=== PATIENT | male | born 1950 | race Caucasian/White ===

== ENCOUNTER 2017-11-07 06:25 | Inpatient (IN) | payer OTHER, MEDICARE ==
[2017-11-04 09:07] VITALS: BMI 35.7
[2017-11-10 06:46] VITALS: PULSE 70; TEMP 99.5
[2017-11-10 11:28] VITALS: BP 113/57
== END 2017-11-10 14:11 | DRG 460 ==
LOC: JSAMEDAYSX 06:25 → EDSTATUS 08:00 → J8W 16:55
PROVIDERS: ADMIT Hospitalist; ATTEND Nurse Practitioner Acute Care
PROC: 0SG10AJ Fusion of 2 or more Lumbar Vertebral Joints with Interbody Fusion Device, Posterior Approach, Anterior Column, Open Approach (ICD-10-PCS; principal; 2017-11-07)
PROC: 0QB00ZZ Excision of Lumbar Vertebra, Open Approach (ICD-10-PCS; 2017-11-07)
PROC: 0QP004Z Removal of Internal Fixation Device from Lumbar Vertebra, Open Approach (ICD-10-PCS; 2017-11-07)
PROC: 0JX70ZZ Transfer Back Subcutaneous Tissue and Fascia, Open Approach (ICD-10-PCS; 2017-11-07)
DX: M48.061 Spinal stenosis, lumbar region without neurogenic claudication (principal); T84.226A Displacement of internal fixation device of vertebrae, initial encounter; M54.16 Radiculopathy, lumbar region; I10 Essential (primary) hypertension; E78.5 Hyperlipidemia, unspecified; N40.0 Benign prostatic hyperplasia without lower urinary tract symptoms; Y83.8 Other surgical procedures as the cause of abnormal reaction of the patient, or of later complication, without mention of misadventure at the time of the procedure
CPT/HCPCS: 36415; 72131-TC; 76000-TC-FY; 80048; 80076; 83735; 84100; 85025; 85027; 86850; 86900; 86901; 94010; 94760; 97116-GP; 97161-GP; J1644

== ENCOUNTER 2018-12-13 09:11 | Day surgery (SDC) | payer OTHER, BC, MEDICARE | END 2018-12-13 12:19 | disposition home or self-care (01) | LOC: JASU-ENDO 09:11 ==

== ENCOUNTER 2019-05-25 11:43 | Inpatient (IN) | payer OTHER, BC ==
[2019-05-25] MEDS ORDERED: VANCOMYCIN 1 GM in D5W (PRE-DOCKED) 1,000 MG/250 ML IVPB ONE (12:48)
[2019-05-25] MEDS ORDERED: CLINDAMYCIN 600MG PREMIX IVPB 600 MG/50 ML BAG IVPB ONE ×2 (12:48→13:17)
[2019-05-25 13:01] LABS: EOS % 2.7 % (0-4.5); HEMATOCRIT 41.8 % (35.4-49); HEMOGLOBIN 14.3 GM/dL (11.7-16.9); LYMPH % 14.9 % (8-40); MCH 32.7 pg (25.7-33.7); MCHC 34.2 g/dl (32.0-35.9); MEAN CELL VOLUME 95.6 fl (80-96); MEAN PLT VOLUME 8.3 fl (7.5-11.1); MONO % 6.5 % (3.8-10.2); NEUT % 74.9 % (42.8-82.8); PLATELET COUNT 195 K/MM3 (134-434); RBC 4.38 M/mm3 (4.00-5.60); WHITE BLOOD COUNT 6.9 K/mm3 (4.0-10.0)
[2019-05-25] MEDS ORDERED: VANCOMYCIN 1 GRAM (PRE-DOCKED) 1,000 MG/250 ML BAG IVPB ONE (13:17)
--- NOTE | 2019-05-25 13:17 | PDOC ---
History of Present Illness - General Chief Complaint: Wound Stated Complaint: SENT BY PCP/LF FOOT TOE INJURY Time Seen by Provider: 05/25/19 12:18 History Source: Patient - History of Present Illness Initial Comments: 05/25/19 12:56 68 yo M PMH of HTN, HLD, BPH, lumbar stenosis presents to ED with L hallux wound. Pt states symptoms began 4 days ago and have progressively worsened. Pt states the toe is swollen, hot, and painful. Since this am, wound has opened and has clear discharge. pt states he is on his 4th day of augmentin and symptoms have not improved. nothing has helped or worsened his pain. pt denies fevers, chills, nausea, vomiting. Past History - Past Medical History Allergies/Adverse Reactions: Allergies Allergy/AdvReac Type Severity Reaction Status Date / Time No Known Allergies Allergy Verified 05/25/19 11:52 Home Medications: Ambulatory Orders Alprazolam 1 mg PO PRN PRN 07/12/16 Amlodipine Besylate 5 mg PO DAILY 07/12/16 Simvastatin 20 mg PO HS 07/12/16 Tamsulosin HCl [Flomax] 0.8 mg PO HS 07/12/16 Losartan/Hydrochlorothiazide [Losartan-Hctz 100-25 mg Tab] 1 each PO DAILY 11/04 Duloxetine HCl [Cymbalta] 30 mg PO DAILY 12/12/18 Metoprolol Succinate 25 mg PO DAILY 12/12/18 Anemia: No Asthma: No Cancer: No Cardiac Disorders: Yes (MURMUR LONG TIME AGO) CVA: No COPD: No CHF: No Dementia: No Diabetes: No GI Disorders: No Disorders: No HTN: Yes Hypercholesterolemia: Yes Liver Disease: No Seizures: No Thyroid Disease: No - Surgical History Abdominal Surgery: No Appendectomy: No Cardiac Surgery: No Cholecystectomy: No Lung Surgery: No Neurologic Surgery: No Orthopedic Surgery: No - Psycho Social/Smoking Cessation Hx Smoking Status: No Smoking History: Unknown if ever smoked Number of Cigarettes Smoked Daily: 0 Hx Alcohol Use: Yes (3X/W) Drug/Substance Use Hx: No Substance Use Type: None Hx Substance Use Treatment: No Review of Systems - Review of Systems Constitutional: No: Chills, Fever Respiratory: No: Shortness of Breath Cardiac (ROS): No: Chest Pain, Lightheadedness, Palpitations ABD/GI: No: Constipated, Diarrhea, Nausea, Vomiting, Abdominal cramping Neurological: No: Headache, Dizziness *Physical Exam - Vital Signs Last Vital Signs Temp Pulse Resp BP Pulse Ox 98.5 F 88 20 202/86 H 98 05/25/19 11:58 05/25/19 11:58 05/25/19 11:58 05/25/19 11:58 05/25/19 11:58 - Physical Exam General Appearance: Yes: Nourished, Appropriately Dressed HEENT: positive: EOMI Respiratory/Chest: positive: Lungs Clear, Normal Breath Sounds. negative: Accessory Muscle Use, Crackles, Wheezing Cardiovascular: positive: Regular Rhythm, Regular Rate, S1, S2. negative: Murmur Gastrointestinal/Abdominal: positive: Normal Bowel Sounds, Soft Extremity: positive: Swelling, Erythema, Inflammation (L hallux ) ED Treatment Course - LABORATORY CBC & Chemistry Diagram: 05/25/19 12:48 05/25/19 12:48 - RADIOLOGY Radiology Studies Ordered: Category Date Time Status FOOT-LEFT [RAD] Stat Radiology 05/25/19 12:22 Ordered Medical Decision Making - Medical Decision Making 05/25/19 13:22 68 yo M w/ L halux wound cellulitis r/o osteo -cbc, cmp -wound culture , blood culture -foot XR 05/25/19 13:23 -cbc reviewed, no leukocytosis . pt afebrile -communicated w/ PMD Dr. Gaxiola. pt failed outpt regimen. pt may benefit from IV abx. 05/25/19 15:22 -CMP reviewed. XR--> no Osteo -Admit to med surg for IV Abx Discharge - Discharge Information Problems reviewed: Yes Clinical Impression/Diagnosis: Cellulitis - Admission Yes - Follow up/Referral Referrals: Uri Gaxiola MD [Primary Care Provider] - - Patient Discharge Instructions - Post Discharge Activity
[2019-05-25 13:30] LABS: ALBUMIN 3.9 g/dl (3.4-5.0); BILIRUBIN,TOTAL 0.7 mg/dL (0.2-1); BLOOD UREA NITROGEN 9.4 mg/dL (7-18); CALCIUM 9.4 mg/dL (8.5-10.1); CREATININE 0.8 mg/dL (0.55-1.3); POTASSIUM 3.4 mmol/L (3.5-5.1); TOT PROT 7.6 g/dl (6.4-8.2)
--- NOTE | 2019-05-25 13:45 | PDOC ---
Attending Attestation - Resident Resident Name: Nathan Quach - ED Attending Attestation I have performed the following: I have examined & evaluated the patient, The case was reviewed & discussed with the resident, I agree w/resident's findings & plan - HPI HPI: 05/25/19 13:44 68 yo M PMH of HTN, HLD, BPH, lumbar stenosis presents to ED with L hallux dorsal wound x 4 days, now progressively worsening, a/w neuropathy/numbness. Pt states the toe is swollen, hot, and painful. pt states he is on his 4th day of augmentin and symptoms have not improved. s/p augmentin per primary doctor since this morning - wound worsening despite abx, with purulent yellow discharge and erythema. nothing has helped or worsened his pain. pt denies fevers, chills, nausea, vomiting. PMD Dr Mallory 05/25/19 14:16 - Physicial Exam PE: 05/25/19 13:44 Agree with the resident's HPI and PE as documented in the electronic medical record. NAD, well appearing, EOMI, PERRL, nl conjunctiva, anicteric; neck supple. lungs clear, RRR, abdomen soft nontender. no rebound, guarding. Back nontender. MCKEON x4, no focal neuro deficits. No peripheral edema. normal color for ethnicity , WWP. - Medical Decision Making 05/25/19 14:18 Vital Signs Temp Pulse Resp BP Pulse Ox 98.5 F 88 20 202/86 H 98 05/25/19 11:58 05/25/19 11:58 05/25/19 11:58 05/25/19 11:58 05/25/19 11:58 Differential diagnosis includes osteomyelitis, cellulitis, abscess, nec fasciitis. VS reviewed, afebrile, +hypertensive. does have h/o HTN, takes home meds. failed outpatient abx warrants more broad coverage. labs and lytes normal. reassuring. no leukocytosis xray no gas or bony abnormalities /fx, more definitive imaging MRI IV abx recommended. ordered for vancomycin to cover MRSA. clindamycin. admit for left toe infection, failed outpatient abx. cultures from blood and wound pending to tailor abx coverage. 05/25/19 14:41 05/25/19 14:42 05/25/19 14:43 05/25/19 15:09
--- NOTE | 2019-05-25 16:18 | PN ---
Teaching Attending Note Name of Resident: Darcy Ko ATTENDING PHYSICIAN STATEMENT I saw and evaluated the patient. I reviewed the resident's note and discussed the case with the resident. I agree with the resident's findings and plan as documented. SUBJECTIVE: Complains of some pain, swelling, erythema, tenderness left great toe. No fever/chills. OBJECTIVE: Afebrile, Hemodynamically Stable. Last Vital Signs Temp Pulse Resp BP Pulse Ox 97.6 F 87 17 167/79 100 05/25/19 15:39 05/25/19 15:39 05/25/19 15:39 05/25/19 15:39 05/25/19 15:39 HEENT - Atraumatic, Normocephalic. Heart - S1, S2, RRR Lungs -Clear to auscultation Abdomen - Soft, non-tender. Bowel Sounds normal. Extremities - Mild edema, no calf tenderness, ulceration of L great toe lateral aspect with pustular discharge. Neuro - AAO x 3. Tone/Power normal all 4 extremities. Laboratory Results - last 24 hr 05/25/19 05/25/19 12:48 12:48 WBC 6.9 RBC 4.38 Hgb 14.3 Hct 41.8 D MCV 95.6 MCH 32.7 MCHC 34.2 RDW 13.0 Plt Count 195 D MPV 8.3 Absolute Neuts (auto) 5.2 Neutrophils % 74.9 Lymphocytes % 14.9 D Monocytes % 6.5 Eosinophils % 2.7 D Basophils % 1.0 Nucleated RBC % 0 Sodium 138 Potassium 3.4 L Chloride 97 L Carbon Dioxide 33 H Anion Gap 8 BUN 9.4 Creatinine 0.8 Est GFR (CKD-EPI)AfAm 107.13 Est GFR (CKD-EPI)NonAf 92.44 Random Glucose 136 H Calcium 9.4 Total Bilirubin 0.7 AST 26 ALT 37 Alkaline Phosphatase 56 Total Protein 7.6 Albumin 3.9 Home Medications Medication Instructions Recorded Alprazolam 1 mg PO PRN PRN 07/12/16 Amlodipine Besylate 5 mg PO DAILY 07/12/16 Simvastatin 20 mg PO HS 07/12/16 Tamsulosin HCl [Flomax] 0.8 mg PO HS 07/12/16 Losartan/Hydrochlorothiazide 1 each PO DAILY 11/04/17 [Losartan-Hctz 100-25 mg Tab] Duloxetine HCl [Cymbalta] 30 mg PO DAILY 12/12/18 Metoprolol Succinate 25 mg PO DAILY 12/12/18 ASSESSMENT AND PLAN: 87 year old male with HTN, HLD, BPH, presents with 5 day history of worsening L great toe ulcer with pain/swelling/erythema, without fever or chills. 1. Infected L great toe ulcer with Cellulitis Failed out-patient Abx therapy MRI foot to exclude osteomyelitis. Afebrile, Hemodynamicaly Stable. No leukocytosis. Given Clinda/Vanco in ED - Will continue Ceftriaxone/Vanco pending Wound Cx result. ID following. 2. HTN - Continue Norvasc, Losartan, Metoprolol. Hold HCTZ. 3. HLD - Continue Simvastatin 4. Anxiety/Depression - Continue Alprazolam, Duloxetine. 5. BPH - continue Flomax. DVT Px - Heparin SQ
--- NOTE | 2019-05-25 16:19 | HP ---
CHIEF COMPLAINT:left big toe ulcer PCP:Dr Gaxiola HISTORY OF PRESENT ILLNESS: Patient is a 68 year old male with past medical history of HTN, HLD, BPH, and lumbar stenosis, presented to the ED due to worsening left big toe ulcer that started 5 days ago. Patient reported he noted left great toe redness and pain 5 days ago. He denies any trauma to the area, denies fevers or chills. The next day, patient noted a 1x1cm blister on the lateral left great toe. He pricked the blister, and noted clear discharge, denies any purulence. Patient consulted with PCP and was prescribed Augmentin BID for which he took the next 4 days. Today, patient noted worsening of the left great toe ulcer, with surrounding redness, swelling and pain. Patient denies any fevers, chills, headache, dizziness, chest pain, SOB, abdominal pain, diarrhea, and urinary symptoms. ER course was notable for: (1)Left foot xray - left foot reveal arthritic changes in the toes, cranial spurring, vascular calcifications and no sign of fracture or subluxation. Blastic or lytic changes (2)Iv Clindamycin and Vancomycin x1 (3) Recent Travel:denies PAST MEDICAL HISTORY: HTN HLD BPH lumbar stenosis PAST SURGICAL HISTORY: Right knee replacement Spinal surgery Social History: Smoking:denies Alcohol:occasional EtOH use Drugs: denies Allergies No Known Allergies Allergy (Verified 05/25/19 11:52) HOME MEDICATIONS: Home Medications Medication Instructions Recorded Alprazolam 1 mg PO PRN PRN 07/12/16 Amlodipine Besylate 5 mg PO DAILY 07/12/16 Simvastatin 20 mg PO HS 07/12/16 Tamsulosin HCl [Flomax] 0.8 mg PO HS 07/12/16 Losartan/Hydrochlorothiazide 1 each PO DAILY 11/04/17 [Losartan-Hctz 100-25 mg Tab] Duloxetine HCl [Cymbalta] 30 mg PO DAILY 12/12/18 Metoprolol Succinate 25 mg PO DAILY 12/12/18 REVIEW OF SYSTEMS CONSTITUTIONAL: Absent: fever, chills, diaphoresis, generalized weakness, malaise, loss of appetite, weight change HEENT: Absent: rhinorrhea, nasal congestion, throat pain, throat swelling, difficulty swallowing, mouth swelling, ear pain, eye pain, visual changes CARDIOVASCULAR: Absent: chest pain, syncope, palpitations, irregular heart rate, lightheadedness , peripheral edema RESPIRATORY: Absent: cough, shortness of breath, dyspnea with exertion, orthopnea, wheezing, stridor, hemoptysis GASTROINTESTINAL: Absent: abdominal pain, abdominal distension, nausea, vomiting, diarrhea, constipation, melena, hematochezia GENITOURINARY: Absent: dysuria, frequency, urgency, hesitancy, hematuria, flank pain, genital pain MUSCULOSKELETAL: Absent: myalgia, arthralgia, joint swelling, back pain, neck pain SKIN: Absent: rash, itching, pallor HEMATOLOGIC/IMMUNOLOGIC: Absent: easy bleeding, easy bruising, lymphadenopathy, frequent infections ENDOCRINE: Absent: unexplained weight gain, unexplained weight loss, heat intolerance, cold intolerance NEUROLOGIC: Absent: headache, focal weakness or paresthesias, dizziness, unsteady gait, seizure, mental status changes, bladder or bowel incontinence PSYCHIATRIC: Absent: anxiety, depression, suicidal or homicidal ideation, hallucinations. PHYSICAL EXAMINATION Vital Signs - 24 hr 05/25/19 05/25/19 11:58 15:39 Temperature 98.5 F 97.6 F Pulse Rate 88 Pulse Rate [ 87 Left Brachial] Respiratory 20 17 Rate Blood Pressure 202/86 H Blood Pressure 167/79 [Left Arm] O2 Sat by Pulse 98 100 Oximetry (%) GENERAL: Awake, alert, and fully oriented, in no acute distress. HEAD: Normal with no signs of trauma. EYES: PERRLA, EOMI, sclera anicteric, conjunctiva clear. EARS, NOSE, THROAT: Moist mucous membranes. NECK: Normal range of motion, supple. LUNGS: Breath sounds equal, clear to auscultation bilaterally. HEART: Regular rate and rhythm, normal S1 and S2 without murmur, rub or gallop. ABDOMEN: Soft, nontender, not distended, normoactive bowel sounds. MUSCULOSKELETAL: Normal range of motion at all joints. UPPER EXTREMITIES: 2+ pulses, warm, well-perfused. LOWER EXTREMITIES: 2+ pulses, warm, well-perfused. LLE: +erythema, tenderness, 1x1cm ulcer with erythema of the left great toe NEUROLOGICAL: Cranial nerves II-XII intact. Normal speech. Gait not observed PSYCHIATRIC: Cooperative. Good eye contact. Appropriate mood and affect. SKIN: Warm, dry, normal turgor. Laboratory Results - last 24 hr 05/25/19 05/25/19 12:48 12:48 WBC 6.9 RBC 4.38 Hgb 14.3 Hct 41.8 D MCV 95.6 MCH 32.7 MCHC 34.2 RDW 13.0 Plt Count 195 D MPV 8.3 Absolute Neuts (auto) 5.2 Neutrophils % 74.9 Lymphocytes % 14.9 D Monocytes % 6.5 Eosinophils % 2.7 D Basophils % 1.0 Nucleated RBC % 0 Sodium 138 Potassium 3.4 L Chloride 97 L Carbon Dioxide 33 H Anion Gap 8 BUN 9.4 Creatinine 0.8 Est GFR (CKD-EPI)AfAm 107.13 Est GFR (CKD-EPI)NonAf 92.44 Random Glucose 136 H Calcium 9.4 Total Bilirubin 0.7 AST 26 ALT 37 Alkaline Phosphatase 56 Total Protein 7.6 Albumin 3.9 ASSESSMENT/PLAN: Patient is a 68 year old male with past medical history of HTN, HLD, BPH, and lumbar stenosis, presented to the ED due to worsening left big toe ulcer that started 5 days ago. #Left great toe ulcer with cellulitis -Left foot xray - left foot reveal arthritic changes in the toes, cranial spurring, vascular calcifications and no sign of fracture or subluxation. Blastic or lytic changes -Will order MRI to rule out osteomyelitis -IV VAnc and clindamycin given at the ED -will continue IV Vancomycin 1g daily and Unasyn 3g q6h -Blood cultures and wound cultures pending -ID (Dr. Carbajal) consulted. #Hypertension -Continue home Amlodipine 5mg daily, Losartan 100mg daily, Toprol Xl 25mg daily -will hold home HCTZ for now #HLD -Continue home Simvastatin 20mg daily #BPH -Continue home Tamsulosin 0.4 mg daily #Hypokalemia -K-dur 40meq x2 doses #FEN -Not on any standing fluids -HypoK, repleted, routine bmp monitoring -Sodium restricted diet #Prophylaxis -Lovenox 40mg sq daily #Disposition -full code -admit to med surg Visit type - Emergency Visit Emergency Visit: Yes ED Registration Date: 05/25/19 Care time: The patient presented to the Emergency Department on the above date and was hospitalized for further evaluation of their emergent condition. - New Patient This patient is new to me today: Yes Date on this admission: 05/25/19 - Critical Care Critical Care patient: No ATTENDING PHYSICIAN STATEMENT I saw and evaluated the patient. I reviewed the resident's note and discussed the case with the resident. I agree with the resident's findings and plan as documented. SUBJECTIVE: OBJECTIVE: ASSESSMENT AND PLAN:
--- NOTE | 2019-05-25 17:42 | PN ---
Progress Note (short form) - Note Progress Note: ID CONSULT DICTATED CELLULITIS L GREAT TOE FAILED OUTPATIENT ANTIBIOTIC TX (AUGMENTIN) AWAIT C/S EMPIRIC VANCOMYCIN/ CEFTRIAXONE
[2019-05-25] MEDS: POTASSIUM CHLORIDE TABS 20 MEQ TABLET.ER (FP) PO SCH ×2 (17:48→23:06)
[2019-05-25 18:20] VITALS: BMI 35.2
[2019-05-25] MEDS ORDERED: DEXTROSE 5%-WATER 100 ML IVPB ONE (18:25)
[2019-05-25] MEDS: CEFTRIAXONE 2 GM in DEXTROSE 5%-WATER 100 ML IVPB SCH (18:47)
[2019-05-25] MEDS ORDERED: AMPICILLIN NA/SULBACTAM NA 3 GM in SODIUM CHLORIDE 100 ML IVPB SCH (21:00)
[2019-05-25] MEDS: TAMSULOSIN HCL 0.4 MG CAP PO SCH (23:03)
[2019-05-25] MEDS: ATORVASTATIN CA 10 MG TABLET (FP) PO SCH (23:04)
[2019-05-25] MEDS: metoPROLOL SUCCINATE 25 MG TAB.SR.24H (FP) PO SCH (23:58)
[2019-05-26] MEDS: ALPRAZolam 1 MG TABLET PO PRN (01:23)
[2019-05-26] MEDS: VANCOMYCIN HCL 1,250 MG in DEXTROSE 5%-WATER - 250 ML IVPB SCH ×2 (01:24→15:06)
[2019-05-26 09:32] LABS: BASO % 1.2 % (0-2.0); EOS % 3.5 % (0-4.5); HEMATOCRIT 38.3 % (35.4-49); LYMPH % 18.6 % (8-40); MCH 32.7 pg (25.7-33.7); MCHC 33.9 g/dl (32.0-35.9); MEAN CELL VOLUME 96.4 fl (80-96); MEAN PLT VOLUME 8.3 fl (7.5-11.1); MONO % 9.7 % (3.8-10.2); PLATELET COUNT 179 K/MM3 (134-434); RBC 3.97 M/mm3 (4.00-5.60); RDW 13.2 % (11.9-15.9); WHITE BLOOD COUNT 6.2 K/mm3 (4.0-10.0)
[2019-05-26 10:00] LABS: BLOOD UREA NITROGEN 8.6 mg/dL (7-18); CALCIUM 8.7 mg/dL (8.5-10.1); CREATININE 0.7 mg/dL (0.55-1.3); MAGNESIUM 1.9 mg/dL (1.8-2.4); PHOSPHOROUS 3.3 mg/dL (2.5-4.9); POTASSIUM 4.2 mmol/L (3.5-5.1)
[2019-05-26] MEDS ORDERED: metoPROLOL SUCCINATE 25 MG TAB.SR.24H (FP) PO SCH (10:00)
[2019-05-26] MEDS ORDERED: VANCOMYCIN 1 GM in D5W (PRE-DOCKED) 1,000 MG/250 ML IVPB SCH (10:00)
[2019-05-26] MEDS ORDERED: DEXTROSE 5%-WATER 100 ML IVPB ONE (10:39)
[2019-05-26] MEDS: CEFTRIAXONE 2 GM in DEXTROSE 5%-WATER 100 ML IVPB SCH (10:44)
[2019-05-26] MEDS: LOSARTAN POTASSIUM 50 MG TABLET (FP) PO SCH (10:44)
[2019-05-26] MEDS: amLODIPine BESYLATE 5 MG TABLET (FP) PO SCH (10:44)
[2019-05-26] MEDS: ENOXAPARIN NA (PORCINE) 40 MG/0.4 ML DISP.SYRIN SQ SCH (10:44)
[2019-05-26] MEDS: DULoxetine HCL 30 MG CAPSULE.DR PO SCH (10:46)
[2019-05-26] MEDS ORDERED: PT OWN MED DRAWER 7, Y5N ONE (10:46)
[2019-05-26] MEDS ORDERED: ALPRAZolam 1 MG TABLET PO ONE (11:52)
[2019-05-26] MEDS ORDERED: DOCUSATE SODIUM 100 MG CAPSULE (FP) PO PRN (11:53)
[2019-05-26] MEDS ORDERED: POLYETHYLENE GLYCOL 3350 119 GM BTL PO ONE (11:53)
--- NOTE | 2019-05-26 12:00 | PN ---
Progress Note (short form) - Note Progress Note: SUBJECTIVE: Complains of some ongoing pain, swelling, erythema, tenderness left great toe. No fever/chills. Complains of insomnia, asks for trazodone, oxycodone , Xanax. OBJECTIVE: Afebrile, Hemodynamically Stable. Appears mildly anxious. Last Vital Signs Temp Pulse Resp BP Pulse Ox 98.5 F 77 18 149/80 98 05/26/19 06:00 05/26/19 06:00 05/26/19 06:00 05/26/19 06:00 05/25/19 21:00 Heart - S1, S2, RRR Lungs - Clear to auscultation Abdomen - Soft, non-tender. Bowel Sounds normal. Extremities - Mild edema, no calf tenderness, ulceration of L great toe lateral aspect with pustular discharge. Neuro - AAO x 3. Tone/Power normal all 4 extremities. Laboratory Results - last 24 hr 05/25/19 05/25/19 05/26/19 12:48 12:48 07:55 WBC 6.9 6.2 RBC 4.38 3.97 L Hgb 14.3 13.0 Hct 41.8 D 38.3 MCV 95.6 96.4 H MCH 32.7 32.7 MCHC 34.2 33.9 RDW 13.0 13.2 Plt Count 195 D 179 MPV 8.3 8.3 Absolute Neuts (auto) 5.2 4.1 Neutrophils % 74.9 67.0 Lymphocytes % 14.9 D 18.6 D Monocytes % 6.5 9.7 Eosinophils % 2.7 D 3.5 Basophils % 1.0 1.2 Nucleated RBC % 0 0 Sodium 138 Potassium 3.4 L Chloride 97 L Carbon Dioxide 33 H Anion Gap 8 BUN 9.4 Creatinine 0.8 Est GFR (CKD-EPI)AfAm 107.13 Est GFR (CKD-EPI)NonAf 92.44 Random Glucose 136 H Calcium 9.4 Phosphorus Magnesium Total Bilirubin 0.7 AST 26 ALT 37 Alkaline Phosphatase 56 Total Protein 7.6 Albumin 3.9 05/26/19 07:55 WBC RBC Hgb Hct MCV MCH MCHC RDW Plt Count MPV Absolute Neuts (auto) Neutrophils % Lymphocytes % Monocytes % Eosinophils % Basophils % Nucleated RBC % Sodium 139 Potassium 4.2 Chloride 100 Carbon Dioxide 34 H Anion Gap 5 L BUN 8.6 Creatinine 0.7 Est GFR (CKD-EPI)AfAm 113.18 Est GFR (CKD-EPI)NonAf 97.65 Random Glucose 120 H Calcium 8.7 Phosphorus 3.3 Magnesium 1.9 Total Bilirubin AST ALT Alkaline Phosphatase Total Protein Albumin Current Medications Generic Name Dose Route Start Last Admin Trade Name Freq PRN Reason Stop Dose Admin Alprazolam 1 mg 05/25/19 16:20 05/26/19 01:23 Xanax PO 1 mg Q24H PRN Administration ANXIETY Alprazolam 1 mg 05/26/19 11:52 Xanax PO 05/27/19 11:51 ONCE PRN ANXIETY Amlodipine Besylate 5 mg 05/26/19 10:00 05/26/19 10:44 Norvasc - PO 5 mg DAILY JOSELINE Administration Atorvastatin Calcium 10 mg 05/25/19 22:00 05/25/19 23:04 Lipitor - PO 10 mg HS JOSELINE Administration Docusate Sodium 100 mg 05/26/19 11:53 Colace - PO BID PRN CONSTIPATION Duloxetine HCl 30 mg 05/26/19 10:00 05/26/19 10:46 Cymbalta - PO 30 mg DAILY JOSELINE Administration Enoxaparin Sodium 40 mg 05/26/19 10:00 05/26/19 10:44 Lovenox - SQ 40 mg DAILY JOSELINE Administration Vancomycin HCl 1,250 mg/ 250 mls @ 166.667 mls/hr 05/26/19 01:00 05/26/19 01: 24 Dextrose IVPB 166.667 mls/hr Q12H JOSELINE Administration Protocol Ceftriaxone Sodium 2 gm/ 100 mls @ 200 mls/hr 05/25/19 17:45 05/26/19 10:44 Dextrose IVPB 200 mls/hr DAILY JOSELINE Administration Protocol Losartan Potassium 100 mg 05/26/19 10:00 05/26/19 10:44 Cozaar - PO 100 mg DAILY JOSELINE Administration Metoprolol Succinate 25 mg 05/25/19 23:45 05/25/19 23:58 Toprol Xl - PO 25 mg HS JOSELINE Administration Oxycodone HCl 5 mg 05/26/19 11:55 Roxicodone - PO Q8H PRN PAIN LEVEL 6-10 Polyethylene Glycol 17 gm 05/26/19 11:53 Miralax (For Daily Use) - PO 05/26/19 11:54 ONCE ONE Senna 2 tab 05/26/19 22:00 Senna - PO HS JOSELINE Tamsulosin HCl 0.8 mg 05/25/19 22:00 05/25/19 23:03 Flomax - PO 0.8 mg HS JOSELINE Administration Trazodone HCl 100 mg 05/26/19 22:00 Desyrel - PO HS JOSELINE Home Medications Medication Instructions Recorded Alprazolam 1 mg PO PRN PRN 07/12/16 Amlodipine Besylate 5 mg PO DAILY 07/12/16 Simvastatin 20 mg PO HS 07/12/16 Tamsulosin HCl [Flomax] 0.8 mg PO HS 07/12/16 Losartan/Hydrochlorothiazide 1 each PO DAILY 11/04/17 [Losartan-Hctz 100-25 mg Tab] Duloxetine HCl [Cymbalta] 30 mg PO DAILY 12/12/18 Metoprolol Succinate 25 mg PO DAILY 12/12/18 Gabapentin OXYCODONE TRAZODONE 300 mg PO BID 05/26/19 ASSESSMENT AND PLAN: 87 year old male with HTN, HLD, BPH, presents with 5 day history of worsening L great toe ulcer with pain/swelling/erythema, without fever or chills. 1. Infected L great toe ulcer with Cellulitis Failed out-patient Abx therapy Wound Cx - presumptive MRSA MRI foot to exclude osteomyelitis. Afebrile, Hemodynamicaly Stable. No leukocytosis. Given Clinda/Vanco in ED - continued on Ceftriaxone/Vanco pending final Wound Cx result - for further re-eval today by ID. 2. HTN - Continue Norvasc, Losartan, Metoprolol. HCTZ held. 3. HLD - Continue Simvastatin 4. Anxiety/Depression - Continue Alprazolam, Duloxetine. Also takes Trazodone at bedtime. 5. BPH - continue Flomax. DVT Px - Heparin SQ Visit type - Emergency Visit Emergency Visit: Yes ED Registration Date: 05/25/19 Care time: The patient presented to the Emergency Department on the above date and was hospitalized for further evaluation of their emergent condition. - New Patient This patient is new to me today: No - Critical Care Critical Care patient: No - Discharge Referral Referred to [facility] No
--- NOTE | 2019-05-26 14:42 | PN ---
Progress Note (short form) - Note Progress Note: toe is improved per patient and friend no fevers or chills Vital Signs Period Temp Pulse Resp BP Sys/Brito Pulse Ox Last 24 Hr 97.6 F-98.7 F 77-92 17-18 145-167/76-83 98-100 cor-rrr lungs clear abd soft,nt ext erythema of the big toe, no fluctuance, open ulcer +DP CBC, BMP 05/26/19 07:55 05/26/19 07:55 Microbiology 05/25/19 12:48 Blood - Peripheral Venous Blood Culture - Preliminary NO GROWTH OBTAINED AFTER 24 HOURS, INCUBATION TO CONTINUE FOR 4 DAYS. 05/25/19 12:48 Blood - Peripheral Venous Blood Culture - Preliminary NO GROWTH OBTAINED AFTER 24 HOURS, INCUBATION TO CONTINUE FOR 4 DAYS. 05/25/19 12:48 Toe - Left Hallux Gram Stain - Final 05/25/19 12:48 Toe - Left Hallux Wound Culture - Preliminary Presumptive Mrsa (Pbp2a Pos) a/p soft tissue infection big toe probable MRSA awaiting MRI esr/crp podiatry evaluation mupirocin cream to wound for now contact isolation mrsa
[2019-05-26] MEDS: MUPIROCIN CA 2% TOPICAL CREAM 15 GM TUBE TP SCH ×2 (17:02→21:22)
[2019-05-26] MEDS: ATORVASTATIN CA 10 MG TABLET (FP) PO SCH (21:19)
[2019-05-26] MEDS: metoPROLOL SUCCINATE 25 MG TAB.SR.24H (FP) PO SCH (21:19)
[2019-05-26] MEDS: TAMSULOSIN HCL 0.4 MG CAP PO SCH (21:19)
[2019-05-26] MEDS: SENNOSIDES 8.6MG TABLET (FP) PO SCH (21:19)
[2019-05-26] MEDS: traZODone HCL 100 MG TABLET (FP) PO SCH (21:19)
[2019-05-26] MEDS: oxyCODONE HCL 5 MG TABLET PO PRN (21:51)
[2019-05-27] MEDS: ALPRAZolam 1 MG TABLET PO PRN (00:37)
[2019-05-27] MEDS: VANCOMYCIN HCL 1,250 MG in DEXTROSE 5%-WATER - 250 ML IVPB SCH ×2 (01:00→15:14)
--- NOTE | 2019-05-27 08:51 | PN ---
Teaching Attending Note Name of Resident: Nate Escobar ATTENDING PHYSICIAN STATEMENT I saw and evaluated the patient. I reviewed the resident's note and discussed the case with the resident. I agree with the resident's findings and plan as documented. SUBJECTIVE: Complains of improving pain, swelling, erythema, tenderness left great toe. No fever/chills. OBJECTIVE: Afebrile, Hemodynamically Stable. Appears mildly anxious. Last Vital Signs Temp Pulse Resp BP Pulse Ox 98.1 F 75 20 155/82 98 05/27/19 04:00 05/27/19 04:00 05/27/19 04:00 05/27/19 04:00 05/26/19 21:00 Heart - S1, S2, RRR Lungs - Clear to auscultation Abdomen - Soft, non-tender. Bowel Sounds normal. Extremities - Mild edema, no calf tenderness, ulceration of L great toe lateral aspect with pustular discharge improving in appearance. Neuro - AAO x 3. Tone/Power normal all 4 extremities. Laboratory Results - last 24 hr 05/26/19 05/27/19 07:55 05:35 Sodium 139 Potassium 4.2 Chloride 100 Carbon Dioxide 34 H Anion Gap 5 L BUN 8.6 Creatinine 0.7 Est GFR (CKD-EPI)AfAm 113.18 Est GFR (CKD-EPI)NonAf 97.65 Random Glucose 120 H Calcium 8.7 Phosphorus 3.3 Magnesium 1.9 C-Reactive Protein 0.9 H Current Medications Generic Name Dose Route Start Last Admin Trade Name Freq PRN Reason Stop Dose Admin Alprazolam 1 mg 05/25/19 16:20 05/27/19 00:37 Xanax PO 1 mg Q24H PRN Administration ANXIETY Amlodipine Besylate 5 mg 05/26/19 10:00 05/26/19 10:44 Norvasc - PO 5 mg DAILY JOSELINE Administration Atorvastatin Calcium 10 mg 05/25/19 22:00 05/26/19 21:19 Lipitor - PO 10 mg HS JOSELINE Administration Docusate Sodium 100 mg 05/26/19 11:53 Colace - PO BID PRN CONSTIPATION Duloxetine HCl 30 mg 05/26/19 10:00 05/26/19 10:46 Cymbalta - PO 30 mg DAILY JOSELINE Administration Enoxaparin Sodium 40 mg 05/26/19 10:00 05/26/19 10:44 Lovenox - SQ 40 mg DAILY JOSELINE Administration Vancomycin HCl 1,250 mg/ 250 mls @ 166.667 mls/hr 05/26/19 01:00 05/27/19 01: 00 EST Dextrose IVPB 166.667 mls/hr Q12H JOSELINE Administration Protocol Ceftriaxone Sodium 2 gm/ 100 mls @ 200 mls/hr 05/25/19 17:45 05/26/19 10:44 Dextrose IVPB 200 mls/hr DAILY JOSELINE Administration Protocol Losartan Potassium 100 mg 05/26/19 10:00 05/26/19 10:44 Cozaar - PO 100 mg DAILY JOSELINE Administration Metoprolol Succinate 25 mg 05/25/19 23:45 05/26/19 21:19 Toprol Xl - PO 25 mg HS JOSELINE Administration Mupirocin 1 applic 05/26/19 14:43 05/26/19 21:22 Bactroban 2% Cream - TP 1 applic BID JOSELINE Administration Oxycodone HCl 5 mg 05/26/19 11:55 05/26/19 21:51 Roxicodone - PO 5 mg Q8H PRN Administration PAIN LEVEL 6-10 Senna 2 tab 05/26/19 22:00 05/26/19 21:19 Senna - PO 2 tab HS JOSELINE Administration Tamsulosin HCl 0.8 mg 05/25/19 22:00 05/26/19 21:19 Flomax - PO 0.8 mg HS JOSELINE Administration Trazodone HCl 100 mg 05/26/19 22:00 05/26/19 21:19 Desyrel - PO 100 mg HS JOSELINE Administration ASSESSMENT AND PLAN: 87 year old male with HTN, HLD, BPH, presents with 5 day history of worsening L great toe ulcer with pain/swelling/erythema, without fever or chills. 1. Infected L great toe ulcer with Cellulitis Failed out-patient Abx therapy Wound Cx - MRSA MRI foot to exclude osteomyelitis - awaiting report. Afebrile, Hemodynamicaly Stable. No leukocytosis. Given Clinda/Vanco in ED - continued on Ceftriaxone/Vanco pending final Wound Cx result - for further re-eval and tailoring of Abx therapy by ID. Podiatry consulted. 2. HTN - Continue Norvasc, Losartan, Metoprolol. HCTZ held. 3. HLD - Continue Simvastatin 4. Anxiety/Depression - Continue Alprazolam, Duloxetine, Trazodone at bedtime. 5. BPH - continue Flomax. DVT Px - Heparin SQ
[2019-05-27] MEDS ORDERED: DEXTROSE 5%-WATER 100 ML IVPB ONE (10:44)
[2019-05-27] MEDS: ENOXAPARIN NA (PORCINE) 40 MG/0.4 ML DISP.SYRIN SQ SCH (10:56)
[2019-05-27] MEDS: oxyCODONE HCL 5 MG TABLET PO PRN ×2 (10:56→18:50)
[2019-05-27] MEDS: DULoxetine HCL 30 MG CAPSULE.DR PO SCH (10:57)
[2019-05-27] MEDS: CEFTRIAXONE 2 GM in DEXTROSE 5%-WATER 100 ML IVPB SCH (10:57)
[2019-05-27] MEDS: amLODIPine BESYLATE 5 MG TABLET (FP) PO SCH (10:57)
[2019-05-27] MEDS: LOSARTAN POTASSIUM 50 MG TABLET (FP) PO SCH (10:58)
[2019-05-27] MEDS: MUPIROCIN CA 2% TOPICAL CREAM 15 GM TUBE TP SCH ×2 (13:15→21:14)
--- NOTE | 2019-05-27 14:30 | PN ---
Progress Note (short form) - Note Progress Note: toe is improved per patient no fevers or chills Vital Signs Period Temp Pulse Resp BP Sys/Brito Pulse Ox Last 24 Hr 97.6 F-98.7 F 77-92 17-18 145-167/76-83 98-100 cor-rrr lungs clear abd soft,nt ext erythema of the big toe, no fluctuance, open ulcer CBC, BMP 05/26/19 07:55 05/26/19 07:55 Microbiology 05/25/19 12:48 Blood - Peripheral Venous Blood Culture - Preliminary NO GROWTH OBTAINED AFTER 48 HOURS, INCUBATION TO CONTINUE FOR 3 DAYS. 05/25/19 12:48 Blood - Peripheral Venous Blood Culture - Preliminary NO GROWTH OBTAINED AFTER 48 HOURS, INCUBATION TO CONTINUE FOR 3 DAYS. 05/25/19 12:48 Toe - Left Hallux Gram Stain - Final 05/25/19 12:48 Toe - Left Hallux Wound Culture - Final Mr S Aureus a/p soft tissue infection big toe MRSA-d/c ceftriaoxne, vanco trough ordered podiatry consult pending to review MRI in am continue vancomycin contact isolation mrsa
[2019-05-27] MEDS ORDERED: PT OWN MED DRAWER 7, Y5N ONE ×2 (15:03→23:51)
--- NOTE | 2019-05-27 17:26 | PN ---
Physical Exam: SUBJECTIVE: Patient seen and examined NAEON Endorses improvement in Left toe pain. Intermittently throbbing. Able to bear some weight to LLE OBJECTIVE: Vital Signs Period Temp Pulse Resp BP Sys/Brito Pulse Ox Last 24 Hr 98.1 F-98.6 F 75-92 18-22 129-158/73-82 98-98 GENERAL: The patient is awake, alert, and fully oriented, in no acute distress. HEAD: Normal with no signs of trauma. EYES: sclera anicteric, conjunctiva clear ENT: Ears normal, nares patent, moist mucous membranes. NECK: Trachea midline, full range of motion, supple. LUNGS: Breath sounds equal, clear to auscultation bilaterally, no wheezes, no crackles, no accessory muscle use. Breathing RA HEART: Regular rate and rhythm, S1, S2 without murmur, rub or gallop. ABDOMEN: Soft, nontender, nondistended, no guarding, no rebound. EXTREMITIES: 2+ DP pulses b/l, warm, well-perfused, no edema. Left great toe with erythema, now receded ~0.5cm from marker demarcation. Open drainage of serosanginuous fluid of distal Left great toe at medial aspect. Mild tenderness with pROM. NEUROLOGICAL: Cranial nerves II through XII grossly intact. Normal speech, gait not observed. Laboratory Results - last 24 hr 05/27/19 05/27/19 05/27/19 05:35 05:35 15:10 ESR 20 C-Reactive Protein 0.9 H Vancomycin Pre-Dose 8.5 L Active Medications Generic Name Dose Route Start Last Admin Trade Name Freq PRN Reason Stop Dose Admin Alprazolam 1 mg 05/25/19 16:20 05/27/19 00:37 Xanax PO 1 mg Q24H PRN Administration ANXIETY Amlodipine Besylate 5 mg 05/26/19 10:00 05/27/19 10:57 Norvasc - PO 5 mg DAILY JOSELINE Administration Atorvastatin Calcium 10 mg 05/25/19 22:00 05/26/19 21:19 Lipitor - PO 10 mg HS JOSELINE Administration Docusate Sodium 100 mg 05/26/19 11:53 Colace - PO BID PRN CONSTIPATION Duloxetine HCl 30 mg 05/26/19 10:00 05/27/19 10:57 Cymbalta - PO 30 mg DAILY JOSELINE Administration Enoxaparin Sodium 40 mg 05/26/19 10:00 05/27/19 10:56 Lovenox - SQ 40 mg DAILY JOSELINE Administration Vancomycin HCl 1,250 mg/ 250 mls @ 166.667 mls/hr 05/26/19 01:00 05/27/19 15: 14 Dextrose IVPB 166.667 mls/hr Q12H JOSELINE Administration Protocol Losartan Potassium 100 mg 05/26/19 10:00 05/27/19 10:58 Cozaar - PO 100 mg DAILY JOSELINE Administration Metoprolol Succinate 25 mg 05/25/19 23:45 05/26/19 21:19 Toprol Xl - PO 25 mg HS JOSELINE Administration Mupirocin 1 applic 05/26/19 14:43 05/27/19 13:15 Bactroban 2% Cream - TP 1 applic BID JOSELINE Administration Oxycodone HCl 5 mg 05/26/19 11:55 05/27/19 10:56 Roxicodone - PO 5 mg Q8H PRN Administration PAIN LEVEL 6-10 Senna 2 tab 05/26/19 22:00 05/26/19 21:19 Senna - PO 2 tab HS JOSELINE Administration Tamsulosin HCl 0.8 mg 05/25/19 22:00 05/26/19 21:19 Flomax - PO 0.8 mg HS JOSELINE Administration Trazodone HCl 100 mg 05/26/19 22:00 05/26/19 21:19 Desyrel - PO 100 mg HS JOSELINE Administration ASSESSMENT/PLAN: 68M with past medical history of HTN, HLD, BPH, and lumbar stenosis, presented to the ED due to worsening left big toe ulcer that started 5 days [employer]. Wound cx positive for MRSA. MRI reading cellulitis vs early osteomyltitis #Left great toe ulcer with cellulitis vs Left toe OM > XR Left foot(05/25/19): left foot reveal arthritic changes in the toes, cranial spurring, vascular calcifications and no sign of fracture or subluxation. Blastic or lytic changes > MRI Left foot(05/26/19): no abscess, cellulitis, minimal edema of distal phalanx suggestive reactive hyperemia vs early OM > ESR 20 --normal > CRP 0.9 --elevated - s/p VAnc and clindamycin given at the ED - abx: --ceftriaxone stopped on day 3 --vancomycin day 3, --mupirocin cream to wound -ID consult(Solomon): --rec podiatry consult to review MRI --isolation: contact precautions #Hypertension -Continue home Amlodipine 5mg daily, Losartan 100mg daily, Toprol Xl 25mg daily -will hold home HCTZ for now #HLD -hold home Simvastatin 20mg daily --NF #BPH -Continue home Tamsulosin 0.4 mg daily #Hypokalemia -K-dur 40meq x2 doses #FEN -Not on any standing fluids -routine bmp monitoring -Sodium restricted diet #Prophylaxis -Lovenox 40mg sq daily #Disposition -full code -admit to med surg Visit type - Emergency Visit Emergency Visit: No - New Patient This patient is new to me today: No - Critical Care Critical Care patient: No ATTENDING PHYSICIAN STATEMENT I saw and evaluated the patient. I reviewed the resident's note and discussed the case with the resident. I agree with the resident's findings and plan as documented. SUBJECTIVE: OBJECTIVE: ASSESSMENT AND PLAN:
[2019-05-27] MEDS: ACETAMINOPHEN 325 MG TABLET (FP) PO PRN (18:49)
[2019-05-27] MEDS: SENNOSIDES 8.6MG TABLET (FP) PO SCH (21:12)
[2019-05-27] MEDS: TAMSULOSIN HCL 0.4 MG CAP PO SCH (21:12)
[2019-05-27] MEDS: ATORVASTATIN CA 10 MG TABLET (FP) PO SCH (21:13)
[2019-05-27] MEDS: traZODone HCL 100 MG TABLET (FP) PO SCH (21:13)
[2019-05-27] MEDS: metoPROLOL SUCCINATE 25 MG TAB.SR.24H (FP) PO SCH (21:13)
[2019-05-28] MEDS: VANCOMYCIN HCL 1,250 MG in DEXTROSE 5%-WATER - 250 ML IVPB SCH (00:06)
[2019-05-28] MEDS: ALPRAZolam 1 MG TABLET PO PRN (00:06)
[2019-05-28 07:36] LABS: HEMATOCRIT 38.1 % (35.4-49); HEMOGLOBIN 13.1 GM/dL (11.7-16.9); MCH 33.1 pg (25.7-33.7); MCHC 34.3 g/dl (32.0-35.9); MEAN CELL VOLUME 96.3 fl (80-96); PLATELET COUNT 189 K/MM3 (134-434); RBC 3.95 M/mm3 (4.00-5.60); WHITE BLOOD COUNT 6.5 K/mm3 (4.0-10.0)
[2019-05-28 08:18] LABS: BLOOD UREA NITROGEN 10.3 mg/dL (7-18); CALCIUM 8.9 mg/dL (8.5-10.1); CREATININE 0.7 mg/dL (0.55-1.3); MAGNESIUM 2.1 mg/dL (1.8-2.4); PHOSPHOROUS 3.9 mg/dL (2.5-4.9); POTASSIUM 3.9 mmol/L (3.5-5.1)
--- NOTE | 2019-05-28 08:59 | PN ---
Teaching Attending Note Name of Resident: Nate Escobar ATTENDING PHYSICIAN STATEMENT I saw and evaluated the patient. I reviewed the resident's note and discussed the case with the resident. I agree with the resident's findings and plan as documented. SUBJECTIVE: C/o mild pain OBJECTIVE: Vital Signs Temperature 97.8 F 05/28/19 07:42 Pulse Rate 78 05/28/19 07:42 Respiratory Rate 20 05/28/19 07:42 Blood Pressure 155/79 05/28/19 07:42 O2 Sat by Pulse Oximetry (%) 98 05/27/19 21:00 Elderly M not in distress able to ambulate HEEENT:Mm moist no anemia, PERRLA, EOMI NECK: No JVD no Bruit CHEST: CTA B/L CVS: S1S2 IR no m/g/r ABD: No distention, non tender Bs + EXT:No edema feet, Left toe Cellulitis cellulitis/abscess SKULL CHOPPER:AOX3 non focal CBC, BMP 05/28/19 06:20 05/28/19 06:20 Active Medications Acetaminophen (Tylenol -) 325 mg PO Q8H PRN PRN Reason: PAIN LEVEL 6-10 Last Admin: 05/27/19 18:49 Dose: 325 mg Alprazolam (Xanax) 1 mg PO Q24H PRN PRN Reason: ANXIETY Last Admin: 05/28/19 00:06 Dose: 1 mg Amlodipine Besylate (Norvasc -) 5 mg PO DAILY [facility] Last Admin: 05/27/19 10:57 Dose: 5 mg Atorvastatin Calcium (Lipitor -) 10 mg PO HS [facility] Last Admin: 05/27/19 21:13 Dose: 10 mg Docusate Sodium (Colace -) 100 mg PO BID PRN PRN Reason: CONSTIPATION Duloxetine HCl (Cymbalta -) 30 mg PO DAILY [facility] Last Admin: 05/27/19 10:57 Dose: 30 mg Enoxaparin Sodium (Lovenox -) 40 mg SQ DAILY [facility] Last Admin: 05/27/19 10:56 Dose: 40 mg Vancomycin HCl 1,250 mg/ (Dextrose) 250 mls @ 166.667 mls/hr IVPB Q12H JOSELINE; Protocol Last Admin: 05/28/19 00:06 Dose: 166.667 mls/hr Losartan Potassium (Cozaar -) 100 mg PO DAILY [facility] Last Admin: 05/27/19 10:58 Dose: 100 mg Metoprolol Succinate (Toprol Xl -) 25 mg PO [facility] Last Admin: 05/27/19 21:13 Dose: 25 mg Mupirocin (Bactroban 2% Cream -) 1 applic TP BID [facility] Last Admin: 05/27/19 21:14 Dose: 1 applic Oxycodone HCl (Roxicodone -) 5 mg PO Q8H PRN PRN Reason: PAIN LEVEL 6-10 Last Admin: 05/27/19 18:50 Dose: 5 mg Senna (Senna -) 2 tab PO [facility] Last Admin: 05/27/19 21:12 Dose: 2 tab Tamsulosin HCl (Flomax -) 0.8 mg PO [facility] Last Admin: 05/27/19 21:12 Dose: 0.8 mg Trazodone HCl (Desyrel -) 100 mg PO [facility] Last Admin: 05/27/19 21:13 Dose: 100 mg ASSESSMENT AND PLAN:87 year old male with HTN, HLD, BPH, presents with 5 day history of worsening L great toe ulcer with pain/swelling/erythema, without fever or chills. Problem List - Problems (1) Cellulitis Assessment/Plan: Toe grew MRSA will cont Vancomycin MRI shows ? PM will F/U Podiatry and ID recommondations Code(s): L03.90 - CELLULITIS, UNSPECIFIED Qualifiers: Laterality: left (2) HTN (hypertension) Assessment/Plan: Well control Problems reviewed: Yes Code(s): I10 - ESSENTIAL (PRIMARY) HYPERTENSION (3) Dyslipidemia Assessment/Plan: Cont statin Problems reviewed: Yes Code(s): E78.5 - HYPERLIPIDEMIA, UNSPECIFIED
[2019-05-28] MEDS: MUPIROCIN CA 2% TOPICAL CREAM 15 GM TUBE TP SCH ×2 (10:00→21:03)
[2019-05-28] MEDS: LOSARTAN POTASSIUM 50 MG TABLET (FP) PO SCH (10:13)
[2019-05-28] MEDS: ENOXAPARIN NA (PORCINE) 40 MG/0.4 ML DISP.SYRIN SQ SCH (10:14)
[2019-05-28] MEDS: DULoxetine HCL 30 MG CAPSULE.DR PO SCH (10:14)
[2019-05-28] MEDS: amLODIPine BESYLATE 5 MG TABLET (FP) PO SCH (10:14)
--- NOTE | 2019-05-28 12:39 | CONSULT ---
Consult - text type - Consultation Consultation Note: Podiatry Consultation: Pleasant 68 year old male, history of peripheral neuropathy, presented to the ED for admission on request of his PCP for cellulitis of the great toe left foot. The patient reports a 1 week history of blister formation, for which the patient lanced on his own. He noted increased redness/drainage from the toe. He also noted worsening of symptoms despite being prescribed PO augmentin. He denies F/V/N/C/SOB/CP and is afebrile. PMHx: HTN, HLD, BPH, and lumbar stenosis, peripheral neuropathy Meds: noted ALL: NKMA LEXY: L foot: pedal pulses palpable, TG wnl, CFT brisk to toe. There is a medial distal hallux neuropathic wound with eschar, (+) purulent drainage, (+) fluctuance over the area, (+) significant erythema to the digit. There is no streaking cellulitis. There is no soft tissue crepitus. Minimal tenderness to palpation. No probing to bone. Wound Cx: MRSA Blood Cx: no growth MRI L foot: cellulitis with possible early osteomyelitis distal phalanx Imp: 68 year old male, history of peripheral neuropathy, with neuropathic infection of the left hallux and cellulitis 1. IV abx per infectious disease 2. Continue local care 3. Reviewed treatment options with patient. Will plan for incision and drainage in OR tomorrow or Tuesday. Will discuss with infectious disease whether bone bx will be included. 4. Will follow. Thank you for the courtesy of this consultation. Maximilian Cummins DPM
--- NOTE | 2019-05-28 13:28 | PN ---
Progress Note, Physician History of Present Illness: AWAKE, ALERT OOB IN CHAIR REPORTS STUBBING TOE ON IV POLE LAST NIGHT NO C/O FEVER/ CHILLS WOUND C/S PRESUMED MRSA MRI FINDINGS NOTED - Current Medication List Current Medications: Active Medications Acetaminophen (Tylenol -) 325 mg PO Q8H PRN PRN Reason: PAIN LEVEL 6-10 Last Admin: 05/27/19 18:49 Dose: 325 mg Alprazolam (Xanax) 1 mg PO Q24H PRN PRN Reason: ANXIETY Last Admin: 05/28/19 00:06 Dose: 1 mg Amlodipine Besylate (Norvasc -) 5 mg PO DAILY [facility] Last Admin: 05/28/19 10:14 Dose: 5 mg Atorvastatin Calcium (Lipitor -) 10 mg PO HS [facility] Last Admin: 05/27/19 21:13 Dose: 10 mg Docusate Sodium (Colace -) 100 mg PO BID PRN PRN Reason: CONSTIPATION Enoxaparin Sodium (Lovenox -) 40 mg SQ DAILY [facility] Last Admin: 05/28/19 10:14 Dose: 40 mg Gabapentin (Neurontin -) 300 mg PO TID [facility] Vancomycin HCl 1,500 mg/ (Dextrose) 250 mls @ 166.667 mls/hr IVPB Q12H [facility]; Protocol Losartan Potassium (Cozaar -) 100 mg PO DAILY [facility] Last Admin: 05/28/19 10:13 Dose: 100 mg Metoprolol Succinate (Toprol Xl -) 25 mg PO HS [facility] Last Admin: 05/27/19 21:13 Dose: 25 mg Mupirocin (Bactroban 2% Cream -) 1 applic TP BID [facility] Last Admin: 05/27/19 21:14 Dose: 1 applic Oxycodone HCl (Roxicodone -) 5 mg PO Q8H PRN PRN Reason: PAIN LEVEL 6-10 Last Admin: 05/27/19 18:50 Dose: 5 mg Senna (Senna -) 2 tab PO HS [facility] Last Admin: 05/27/19 21:12 Dose: 2 tab Tamsulosin HCl (Flomax -) 0.8 mg PO HS [facility] Last Admin: 05/27/19 21:12 Dose: 0.8 mg Trazodone HCl (Desyrel -) 100 mg PO [facility] Last Admin: 05/27/19 21:13 Dose: 100 mg - Objective Vital Signs: Vital Signs Temperature 98.2 F 05/28/19 10:00 Pulse Rate 80 05/28/19 10:00 Respiratory Rate 18 05/28/19 10:00 Blood Pressure 160/78 05/28/19 10:00 O2 Sat by Pulse Oximetry (%) 98 05/28/19 09:00 Constitutional: Yes: No Distress Cardiovascular: Yes: Regular Rate and Rhythm, S1, S2 Respiratory: Yes: CTA Bilaterally Gastrointestinal: Yes: Normal Bowel Sounds, Soft. No: Tenderness Extremities: Yes: Other (+ DRY ULCERATED AREA DISTAL GREAT TOE; GREAT TOE REMAINS SWOLLEN/RED) Labs: CBC, BMP 05/28/19 06:20 05/28/19 06:20 Assessment/Plan CELLULITIS, GREAT TOE + WOUND C/S MRSA ? OSTEOMYELITIS PODIATRY NOTE APPRECIATED FOR I&D CONTINUE VANCOMYCIN ELEVATION
[2019-05-28] MEDS ORDERED: VANCOMYCIN HCL 1,500 MG in DEXTROSE 5%-WATER - 250 ML IVPB SCH (14:00)
[2019-05-28] MEDS: VANCOMYCIN HCL 1,500 MG in DEXTROSE 5%-WATER - 500 ML IVPB SCH (14:08)
[2019-05-28] MEDS ORDERED: DULoxetine HCL 30 MG CAPSULE.DR PO ONE (14:14)
[2019-05-28] MEDS: GABAPENTIN 300 MG CAPSULE (FP) PO SCH ×2 (14:14→21:02)
[2019-05-28] MEDS: oxyCODONE HCL 5 MG TABLET PO PRN ×2 (14:15→22:35)
[2019-05-28] MEDS: DULoxetine HCL 60 MG CAPSULE.DR PO SCH (14:15)
--- NOTE | 2019-05-28 16:05 | PN ---
Physical Exam: SUBJECTIVE: Patient seen and examined O/N: bumped toe into IV pole when ambulating Endorses improvement in toe pain, thinks erythema is receding OBJECTIVE: Vital Signs Period Temp Pulse Resp BP Sys/Brito Pulse Ox Last 24 Hr 97.8 F-98.5 F 78-90 18-22 150-162/76-85 98-98 GENERAL: The patient is awake, alert, and fully oriented, in no acute distress. HEAD: Normal with no signs of trauma. EYES: sclera anicteric, conjunctiva clear ENT: Ears normal, nares patent, moist mucous membranes. NECK: Trachea midline, full range of motion, supple. LUNGS: Breath sounds equal, clear to auscultation bilaterally, no wheezes, no crackles, no accessory muscle use. Breathing RA HEART: Regular rate and rhythm, S1, S2 without murmur, rub or gallop. ABDOMEN: Soft, nontender, nondistended, no guarding, no rebound. EXTREMITIES: 2+ DP pulses b/l, warm, well-perfused, no edema. Left great toe with erythema, receded ~0.5cm from marker demarcation. Open drainage of serosanginuous fluid of distal Left great toe at medial aspect. Mild tenderness with pROM. NEUROLOGICAL: Normal speech, gait not observed. Laboratory Results - last 24 hr 05/27/19 05/28/19 05/28/19 15:10 06:20 06:20 WBC 6.5 RBC 3.95 L Hgb 13.1 Hct 38.1 MCV 96.3 H MCH 33.1 MCHC 34.3 RDW 13.0 Plt Count 189 MPV 8.0 Sodium 140 Potassium 3.9 Chloride 102 Carbon Dioxide 32 Anion Gap 5 L BUN 10.3 Creatinine 0.7 Est GFR (CKD-EPI)AfAm 113.18 Est GFR (CKD-EPI)NonAf 97.65 Random Glucose 113 H Calcium 8.9 Phosphorus 3.9 Magnesium 2.1 Vancomycin Pre-Dose 8.5 L Active Medications Generic Name Dose Route Start Last Admin Trade Name Freq PRN Reason Stop Dose Admin Acetaminophen 325 mg 05/27/19 18:01 05/27/19 18:49 Tylenol - PO 325 mg Q8H PRN Administration PAIN LEVEL 6-10 Alprazolam 1 mg 05/25/19 16:20 05/28/19 00:06 Xanax PO 1 mg Q24H PRN Administration ANXIETY Amlodipine Besylate 5 mg 05/26/19 10:00 05/28/19 10:14 Norvasc - PO 5 mg DAILY JOSELINE Administration Atorvastatin Calcium 10 mg 05/25/19 22:00 05/27/19 21:13 Lipitor - PO 10 mg HS JOSELINE Administration Docusate Sodium 100 mg 05/26/19 11:53 Colace - PO BID PRN CONSTIPATION Duloxetine HCl 60 mg 05/28/19 13:30 05/28/19 14:15 Cymbalta - PO 30 mg DAILY JOSELINE Administration Enoxaparin Sodium 40 mg 05/26/19 10:00 05/28/19 10:14 Lovenox - SQ 40 mg DAILY JOSELINE Administration Gabapentin 300 mg 05/28/19 14:00 05/28/19 14:14 Neurontin - PO 300 mg TID JOSELINE Administration Vancomycin HCl 1,500 mg/ 500 mls @ 250 mls/hr 05/28/19 14:00 05/28/19 14:08 Dextrose IVPB 05/29/19 03:59 250 mls/hr Q12H JOSELINE Administration Protocol Vancomycin HCl 1,500 mg/ 500 mls @ 250 mls/hr 05/29/19 14:00 Dextrose IVPB Q12H JOSELINE Losartan Potassium 100 mg 05/26/19 10:00 05/28/19 10:13 Cozaar - PO 100 mg DAILY JOSELINE Administration Metoprolol Succinate 25 mg 05/25/19 23:45 05/27/19 21:13 Toprol Xl - PO 25 mg HS JOSELINE Administration Mupirocin 1 applic 05/26/19 14:43 05/27/19 21:14 Bactroban 2% Cream - TP 1 applic BID JOSELINE Administration Oxycodone HCl 5 mg 05/27/19 18:00 05/28/19 14:15 Roxicodone - PO 5 mg Q8H PRN Administration PAIN LEVEL 6-10 Senna 2 tab 05/26/19 22:00 05/27/19 21:12 Senna - PO 2 tab HS JOSELINE Administration Tamsulosin HCl 0.8 mg 05/25/19 22:00 05/27/19 21:12 Flomax - PO 0.8 mg HS JOSELINE Administration Trazodone HCl 100 mg 05/26/19 22:00 05/27/19 21:13 Desyrel - PO 100 mg HS JOSELINE Administration Vital Signs Temp 98.5 F 05/28/19 15:32 Pulse 88 05/28/19 15:32 Resp 18 05/28/19 15:32 BP 154/80 05/28/19 15:32 Pulse Ox 98 05/28/19 09:00 Intake & Output 05/27/19 05/28/19 05/28/19 23:59 11:59 23:59 Intake Total 1200 1060 400 Balance 1200 1060 400 Intake: IVPB 300 Oral 900 1060 400 Other: Voiding Method Toilet Toilet # Unmeasured Voids Void 2 1 Bowel Movement No No ASSESSMENT/PLAN: 68M with past medical history of HTN, HLD, BPH, and lumbar stenosis, presented to the ED due to worsening left big toe ulcer that started 5 days [employer]. Wound cx positive for MRSA. MRI reading cellulitis vs early osteomyltitis #Left great toe ulcer with cellulitis vs Left toe OM > XR Left foot(05/25/19): left foot reveal arthritic changes in the toes, cranial spurring, vascular calcifications and no sign of fracture or subluxation. Blastic or lytic changes > MRI Left foot(05/26/19): no abscess, cellulitis, minimal edema of distal phalanx suggestive reactive hyperemia vs early OM > ESR 20 --normal > CRP 0.9 --elevated - s/p VAnc and clindamycin given at the ED - abx: --ceftriaxone stopped on day 3 --vancomycin day 4, --mupirocin cream to wound -ID consult(Solomon): --cw vanc --isolation: contact precautions -Podiatry consult(Placido): --I&D, possible bone bx for Tuesday or Tuesday #chronic depression - cw home duloxetine #chronic shoulder pain - cw home percocet #Hypertension -Continue home Amlodipine 5mg daily, Losartan 100mg daily, Toprol Xl 25mg daily -will hold home HCTZ for now #HLD -hold home Simvastatin 20mg daily --NF #BPH -Continue home Tamsulosin 0.4 mg daily #Hypokalemia -K-dur 40meq x2 doses #FEN -Not on any standing fluids -routine bmp monitoring -Sodium restricted diet #Prophylaxis -Lovenox 40mg sq daily #Disposition -full code -admit to med surg Visit type - Emergency Visit Emergency Visit: No - New Patient This patient is new to me today: No - Critical Care Critical Care patient: No ATTENDING PHYSICIAN STATEMENT I saw and evaluated the patient. I reviewed the resident's note and discussed the case with the resident. I agree with the resident's findings and plan as documented. SUBJECTIVE: OBJECTIVE: ASSESSMENT AND PLAN:
[2019-05-28] MEDS: TAMSULOSIN HCL 0.4 MG CAP PO SCH (21:02)
[2019-05-28] MEDS: SENNOSIDES 8.6MG TABLET (FP) PO SCH (21:02)
[2019-05-28] MEDS: ATORVASTATIN CA 10 MG TABLET (FP) PO SCH (21:02)
[2019-05-28] MEDS: traZODone HCL 100 MG TABLET (FP) PO SCH (21:03)
[2019-05-28] MEDS: metoPROLOL SUCCINATE 25 MG TAB.SR.24H (FP) PO SCH (21:03)
[2019-05-28] MEDS: ACETAMINOPHEN 325 MG TABLET (FP) PO PRN (22:44)
[2019-05-29] MEDS ORDERED: PT OWN MED DRAWER 7, Y5N ONE ×3 (00:38→15:30)
[2019-05-29] MEDS: VANCOMYCIN HCL 1,500 MG in DEXTROSE 5%-WATER - 500 ML IVPB SCH (01:49)
[2019-05-29] MEDS: GABAPENTIN 300 MG CAPSULE (FP) PO SCH ×3 (06:04→21:29)
[2019-05-29 09:07] LABS: HEMATOCRIT 41.3 % (35.4-49); HEMOGLOBIN 13.9 GM/dL (11.7-16.9); MCH 32.7 pg (25.7-33.7); MCHC 33.8 g/dl (32.0-35.9); MEAN CELL VOLUME 96.9 fl (80-96); MEAN PLT VOLUME 7.8 fl (7.5-11.1); PLATELET COUNT 203 K/MM3 (134-434); RBC 4.26 M/mm3 (4.00-5.60); RDW 13.2 % (11.9-15.9)
[2019-05-29] MEDS ORDERED: DULoxetine HCL 30 MG CAPSULE.DR PO ONE (09:22)
[2019-05-29 09:30] LABS: BLOOD UREA NITROGEN 9.4 mg/dL (7-18); CALCIUM 9.3 mg/dL (8.5-10.1); CREATININE 0.7 mg/dL (0.55-1.3); MAGNESIUM 2.4 mg/dL (1.8-2.4); POTASSIUM 4.4 mmol/L (3.5-5.1)
[2019-05-29] MEDS: DULoxetine HCL 60 MG CAPSULE.DR PO SCH (10:00)
[2019-05-29] MEDS: LOSARTAN POTASSIUM 50 MG TABLET (FP) PO SCH (10:00)
[2019-05-29] MEDS: oxyCODONE HCL 5 MG TABLET PO PRN ×2 (10:00→21:38)
[2019-05-29] MEDS: amLODIPine BESYLATE 5 MG TABLET (FP) PO SCH (10:00)
[2019-05-29] MEDS: ACETAMINOPHEN 325 MG TABLET (FP) PO PRN (10:01)
[2019-05-29] MEDS ORDERED: LIDOCAINE HCL 1%, 10 MG/ML (20ML VIAL) ONE (11:21)
[2019-05-29] MEDS ORDERED: LACTATED RINGERS SOLUTION 1,000 ML/1,000 ML INFUS.BAG IV SCH ×2 (11:45→16:11)
[2019-05-29] MEDS ORDERED: ONDANSETRON 4 MG/2 ML VIAL IVPUSH PRN (12:26)
[2019-05-29] MEDS ORDERED: PROMETHAZINE HCL 25 MG/1 ML VIAL IVPUSH PRN (12:26)
[2019-05-29] MEDS ORDERED: LACTATED RINGERS SOLUTION 1,000 ML IV SCH (12:30)
[2019-05-29] MEDS ORDERED: MIDAZOLAM HCL 2 MG/2 ML SINGLE DOSE VIAL ONE (12:39)
[2019-05-29] MEDS ORDERED: PROPOFOL 20 ML ONE (12:39)
[2019-05-29] MEDS: MUPIROCIN CA 2% TOPICAL CREAM 15 GM TUBE TP SCH ×2 (12:49→21:30)
[2019-05-29] MEDS ORDERED: LIDOCAINE HCL/PF 2% SDV 5ML VIAL ONE (13:02)
[2019-05-29] MEDS ORDERED: LIDOCAINE HCL 1%, 10 MG/ML (20ML VIAL) INF ONE ×2 (13:07)
[2019-05-29] MEDS ORDERED: KETOROLAC TROMETHAMINE 30 MG/1 ML VIAL ONE (13:26)
--- NOTE | 2019-05-29 13:26 | PN ---
Teaching Attending Note Name of Resident: Nate Escobar ATTENDING PHYSICIAN STATEMENT I saw and evaluated the patient. I reviewed the resident's note and discussed the case with the resident. I agree with the resident's findings and plan as documented with exceptions below. SUBJECTIVE: Patient seen and examined. denies any new fevers, chills, new pain or concerns. Awaiting surgery. OBJECTIVE: Vital Signs Period Temp Pulse Resp BP Sys/Brito Pulse Ox Last 24 Hr 97.6 F-98.8 F 66-88 18-20 133-154/76-80 98 Intake & Output 05/27/19 05/27/19 05/28/19 05/29/19 00:59 23:59 23:59 23:59 Intake Total 3160 20 Balance 3160 20 General: sitting in chair, no acute distress Chest: CTAB, no rales or wheezing Abdomen: soft, obese Extremities: left great toe wound with eschar/purulent drainage, pos fluctuance to the area with surrounding erythema, minimal tenderness to palpation, pos DP pulses Home Medications Medication Instructions Recorded Alprazolam 1 mg PO Q6H PRN 07/12/16 Amlodipine Besylate 5 mg PO DAILY 07/12/16 Simvastatin 20 mg PO HS 07/12/16 Tamsulosin HCl [Flomax] 0.8 mg PO HS 07/12/16 Losartan/Hydrochlorothiazide 1 each PO DAILY 11/04/17 [Losartan-Hctz 100-25 mg Tab] Duloxetine HCl [Cymbalta] 60 mg PO DAILY 12/12/18 Metoprolol Succinate 25 mg PO DAILY 12/12/18 Gabapentin 300 mg PO TID 05/26/19 Oxycodone HCl/Acetaminophen 1 tab PO Q8H PRN 05/27/19 [Percocet 5-325 mg Tablet] Meloxicam 15 mg PO DAILY PRN 05/28/19 Active Medications Acetaminophen (Tylenol -) 325 mg PO Q8H PRN PRN Reason: PAIN LEVEL 6-10 Last Admin: 05/29/19 10:01 Dose: 325 mg Alprazolam (Xanax) 1 mg PO Q24H PRN PRN Reason: ANXIETY Last Admin: 05/28/19 00:06 Dose: 1 mg Amlodipine Besylate (Norvasc -) 5 mg PO DAILY [facility] Last Admin: 05/29/19 10:00 Dose: 5 mg Atorvastatin Calcium (Lipitor -) 10 mg PO HS [facility] Last Admin: 05/28/19 21:02 Dose: 10 mg Docusate Sodium (Colace -) 100 mg PO BID PRN PRN Reason: CONSTIPATION Duloxetine HCl (Cymbalta -) 60 mg PO DAILY [facility] Last Admin: 05/29/19 10:00 Dose: 60 mg Enoxaparin Sodium (Lovenox -) 40 mg SQ DAILY [facility] Last Admin: 05/28/19 10:14 Dose: 40 mg Fentanyl (Sublimaze Injection -) 50 mcg IVPUSH [id number] PRN PRN Reason: PAIN-PACU ORDER X 4 DOSES ONLY Gabapentin (Neurontin -) 300 mg PO TID [facility] Last Admin: 05/29/19 06:04 Dose: 300 mg Vancomycin HCl 1,500 mg/ (Dextrose) 500 mls @ 333.333 mls/hr IVPB Q12H [facility]; Protocol Lactated Ringer's (Lactated Ringers Solution) 1,000 ml in 1,000 mls @ 100 mls/ hr IV [facility] Lactated Ringer's (Lactated Ringers Solution) 1,000 mls @ 125 mls/hr IV [facility] Losartan Potassium (Cozaar -) 100 mg PO DAILY [facility] Last Admin: 05/29/19 10:00 Dose: 100 mg Metoprolol Succinate (Toprol Xl -) 25 mg PO [facility] Last Admin: 05/28/19 21:03 Dose: 25 mg Mupirocin (Bactroban 2% Cream -) 1 applic TP BID [facility] Last Admin: 05/29/19 12:49 Dose: Not Given Ondansetron HCl (Zofran Injection) 4 mg IVPUSH Q6H PRN PRN Reason: NAUSEA AND/OR VOMITING Oxycodone HCl (Roxicodone -) 5 mg PO Q8H PRN PRN Reason: PAIN LEVEL 6-10 Last Admin: 05/29/19 10:00 Dose: 5 mg Promethazine HCl (Phenergan Injection -) 12.5 mg IVPUSH Q6H PRN PRN Reason: NAUSEA-FOR RESCUE AFTER 15 MIN Senna (Senna -) 2 tab PO [facility] Last Admin: 05/28/19 21:02 Dose: 2 tab Tamsulosin HCl (Flomax -) 0.8 mg PO [facility] Last Admin: 05/28/19 21:02 Dose: 0.8 mg Trazodone HCl (Desyrel -) 100 mg PO HS [facility] Last Admin: 05/28/19 21:03 Dose: 100 mg Laboratory Results - last 24 hr 05/29/19 05/29/19 08:45 08:45 WBC 6.0 RBC 4.26 Hgb 13.9 Hct 41.3 MCV 96.9 H MCH 32.7 MCHC 33.8 RDW 13.2 Plt Count 203 MPV 7.8 Sodium 140 Potassium 4.4 Chloride 103 Carbon Dioxide 35 H Anion Gap 3 L BUN 9.4 Creatinine 0.7 Est GFR (CKD-EPI)AfAm 113.18 Est GFR (CKD-EPI)NonAf 97.65 Random Glucose 119 H Calcium 9.3 Phosphorus 4.0 Magnesium 2.4 Microbiology 05/25/19 12:48 Blood - Peripheral Venous Blood Culture - Preliminary NO GROWTH OBTAINED AFTER 96 HOURS, INCUBATION TO CONTINUE FOR 1 DAYS. 05/25/19 12:48 Blood - Peripheral Venous Blood Culture - Preliminary NO GROWTH OBTAINED AFTER 96 HOURS, INCUBATION TO CONTINUE FOR 1 DAYS. 05/25/19 12:48 Toe - Left Hallux Gram Stain - Final 05/25/19 12:48 Toe - Left Hallux Wound Culture - Final Mr S Aureus LE MRI results reviewed ASSESSMENT AND PLAN: 87 yom with PMHx of HTN, HLD, BPH admitted with Left great toe pain/swelling/ erythema -Left great toe cellulitis/ulcer, r/o early osteomyelitis -Wound Cultures with MRSA -Peripheral neuropathy -Spinal stenosis -HTN -HLD -Anxiety/Depression -BPH Plan: For Debridement +/- bone biopsy today. ID/podiatry input noted. vancomycin, monitor levels. Gabapentin/Amlodipine/losartan/Duloxetine/Flomax DVTPPX Lovenox Dispo pending surgical plans and antibiotic needs. discussed with patient.
[2019-05-29] MEDS ORDERED: VANCOMYCIN HCL 1,500 MG in DEXTROSE 5%-WATER - 500 ML IVPB SCH (14:00)
--- NOTE | 2019-05-29 16:04 | OP ---
Operative Note - Note: Operative Date: 05/29/19 Pre-Operative Diagnosis: left hallux abscess with osteomyelitis Operation: left hallux incision and drainage of abscess with bone biopsy Surgeon: Alexsander Cummins Anesthesia: Local, MAC Estimated Blood Loss (mls): 5 Operative Report Dictated: Yes
[2019-05-29] MEDS ORDERED: DOCUSATE SODIUM 100 MG CAPSULE (FP) PO PRN (16:11)
[2019-05-29] MEDS ORDERED: ACETAMINOPHEN 325 MG TABLET (FP) PO PRN (16:11)
--- NOTE | 2019-05-29 17:02 | PN ---
Physical Exam: SUBJECTIVE: Patient seen and examined NAEON Endorses improvement in Left toe pain. NPO O/N for daytime I&D OBJECTIVE: Vital Signs Period Temp Pulse Resp BP Sys/Brito Pulse Ox Last 24 Hr 97.4 F-98.8 F 64-80 10-20 127-152/63-80 96-98 GENERAL: The patient is awake, alert, and fully oriented, in no acute distress. HEAD: Normal with no signs of trauma. EYES: sclera anicteric, conjunctiva clear ENT: Ears normal, nares patent, moist mucous membranes. NECK: Trachea midline, full range of motion, supple. LUNGS: Breath sounds equal, clear to auscultation bilaterally, no wheezes, no crackles, no accessory muscle use. Breathing RA HEART: Regular rate and rhythm, S1, S2 without murmur, rub or gallop. ABDOMEN: Soft, nontender, nondistended, no guarding, no rebound. EXTREMITIES: 2+ DP pulses b/l, warm, well-perfused, no edema. Left great toe with erythema, receded ~0.5cm from marker demarcation. Open drainage of serosanginuous fluid of distal Left great toe at medial aspect. Mild tenderness with pROM. NEUROLOGICAL: Normal speech, gait not observed. Laboratory Results - last 24 hr 05/29/19 05/29/19 08:45 08:45 WBC 6.0 RBC 4.26 Hgb 13.9 Hct 41.3 MCV 96.9 H MCH 32.7 MCHC 33.8 RDW 13.2 Plt Count 203 MPV 7.8 Sodium 140 Potassium 4.4 Chloride 103 Carbon Dioxide 35 H Anion Gap 3 L BUN 9.4 Creatinine 0.7 Est GFR (CKD-EPI)AfAm 113.18 Est GFR (CKD-EPI)NonAf 97.65 Random Glucose 119 H Calcium 9.3 Phosphorus 4.0 Magnesium 2.4 Active Medications Generic Name Dose Route Start Last Admin Trade Name Freq PRN Reason Stop Dose Admin Acetaminophen 325 mg 05/29/19 16:11 Tylenol - PO Q8H PRN PAIN LEVEL 6-10 Alprazolam 1 mg 05/29/19 16:11 Xanax PO Q24H PRN ANXIETY Amlodipine Besylate 5 mg 05/30/19 10:00 Norvasc - PO DAILY [facility] Atorvastatin Calcium 10 mg 05/29/19 22:00 Lipitor - PO HS [facility] Docusate Sodium 100 mg 05/29/19 16:11 Colace - PO BID PRN CONSTIPATION Duloxetine HCl 60 mg 05/30/19 10:00 Cymbalta - PO DAILY [facility] Enoxaparin Sodium 40 mg 05/30/19 10:00 Lovenox - SQ DAILY [facility] Gabapentin 300 mg 05/29/19 22:00 Neurontin - PO TID [facility] Lactated Ringer's 1,000 ml in 1,000 mls @ 100 mls/hr 05/29/19 16:11 Lactated Ringers Solution IV ASDIR [facility] Vancomycin HCl 1,500 mg/ 500 mls @ 250 mls/hr 05/30/19 02:00 Dextrose IVPB Q12H [facility] Protocol Losartan Potassium 100 mg 05/30/19 10:00 Cozaar - PO DAILY [facility] Metoprolol Succinate 25 mg 05/29/19 22:00 Toprol Xl - PO HS [facility] Mupirocin 1 applic 05/29/19 22:00 Bactroban 2% Cream - TP BID [facility] Oxycodone HCl 5 mg 05/29/19 16:11 Roxicodone - PO Q8H PRN PAIN LEVEL 6-10 Senna 2 tab 05/29/19 22:00 Senna - PO HS [facility] Tamsulosin HCl 0.8 mg 05/29/19 22:00 Flomax - PO HS [facility] Trazodone HCl 100 mg 05/29/19 22:00 Desyrel - PO HS [facility] ASSESSMENT/PLAN: 68M with past medical history of HTN, HLD, BPH, and lumbar stenosis, presented to the ED due to worsening left big toe ulcer that started 5 days [employer]. Wound cx positive for MRSA. MRI reading cellulitis vs early osteomyltitis. I&D w/ bone bx ([facility], 05/29/19). #Left great toe ulcer with cellulitis vs Left toe OM > XR Left foot(05/25/19): left foot reveal arthritic changes in the toes, cranial spurring, vascular calcifications and no sign of fracture or subluxation. Blastic or lytic changes > MRI Left foot(05/26/19): no abscess, cellulitis, minimal edema of distal phalanx suggestive reactive hyperemia vs early OM > ESR 20 --normal > CRP 0.9 --elevated - s/p VAnc and clindamycin given at the ED - abx: --ceftriaxone stopped on day 3 --vancomycin day 5 --mupirocin cream to wound -ID consult(Solomon): --cw vanc --isolation: contact precautions -Podiatry consult([facility]): --I&D w/ bone bx on 05/29/19 --fu bone bx #chronic depression - cw home duloxetine #chronic shoulder pain - cw home percocet #Hypertension -Continue home Amlodipine 5mg daily, Losartan 100mg daily, Toprol Xl 25mg daily -will hold home HCTZ for now #HLD -hold home Simvastatin 20mg daily --NF #BPH -Continue home Tamsulosin 0.4 mg daily #Hypokalemia -K-dur 40meq x2 doses #FEN -Not on any standing fluids -routine bmp monitoring -Sodium restricted diet #Prophylaxis -Lovenox 40mg sq daily #Disposition -full code -admit to med surg Visit type - Emergency Visit Emergency Visit: No - New Patient This patient is new to me today: No - Critical Care Critical Care patient: No ATTENDING PHYSICIAN STATEMENT I saw and evaluated the patient. I reviewed the resident's note and discussed the case with the resident. I agree with the resident's findings and plan as documented. SUBJECTIVE: OBJECTIVE: ASSESSMENT AND PLAN:
--- NOTE | 2019-05-29 17:04 | PN ---
Progress Note, Physician History of Present Illness: S/P OR DEBRIDEMENT/ BONE BX AWAKE, ALERT SUPINE IN BED NO C/O FOOT PAIN NO C/O FEVER/ CHILLS WOUND C/S MRSA - Current Medication List Current Medications: Active Medications Acetaminophen (Tylenol -) 325 mg PO Q8H PRN PRN Reason: PAIN LEVEL 6-10 Alprazolam (Xanax) 1 mg PO Q24H PRN PRN Reason: ANXIETY Amlodipine Besylate (Norvasc -) 5 mg PO DAILY [facility] Atorvastatin Calcium (Lipitor -) 10 mg PO HS [facility] Docusate Sodium (Colace -) 100 mg PO BID PRN PRN Reason: CONSTIPATION Duloxetine HCl (Cymbalta -) 60 mg PO DAILY [facility] Enoxaparin Sodium (Lovenox -) 40 mg SQ DAILY [facility] Gabapentin (Neurontin -) 300 mg PO TID [facility] Lactated Ringer's (Lactated Ringers Solution) 1,000 ml in 1,000 mls @ 100 mls/ hr IV [facility] Vancomycin HCl 1,500 mg/ (Dextrose) 500 mls @ 250 mls/hr IVPB Q12H [facility]; Protocol Losartan Potassium (Cozaar -) 100 mg PO DAILY [facility] Metoprolol Succinate (Toprol Xl -) 25 mg PO HS [facility] Mupirocin (Bactroban 2% Cream -) 1 applic TP BID [facility] Oxycodone HCl (Roxicodone -) 5 mg PO Q8H PRN PRN Reason: PAIN LEVEL 6-10 Senna (Senna -) 2 tab PO HS [facility] Tamsulosin HCl (Flomax -) 0.8 mg PO HS [facility] Trazodone HCl (Desyrel -) 100 mg PO HS [facility] - Objective Vital Signs: Vital Signs Temperature 97.6 F 05/29/19 16:13 Pulse Rate 72 05/29/19 16:13 Respiratory Rate 18 05/29/19 16:13 Blood Pressure 127/78 05/29/19 16:13 O2 Sat by Pulse Oximetry (%) 98 05/29/19 16:13 Constitutional: Yes: No Distress Cardiovascular: Yes: Regular Rate and Rhythm, S1, S2 Respiratory: Yes: CTA Bilaterally Gastrointestinal: Yes: Normal Bowel Sounds, Soft. No: Tenderness Extremities: Yes: Other (POST OP DRESSING IN PLACE , FOOT) Labs: CBC, BMP 05/29/19 08:45 05/29/19 08:45 Assessment/Plan CELLULITIS/ OSTEOMYELITIS GREAT TOE + WOUND C/S MRSA S/P I&D AWAIT OPERATIVE C/S , PATH CONTINUE VANCOMYCIN ELEVATION WILL LIKLEY NEED PICC
--- NOTE | 2019-05-29 17:39 | OP ---
DATE OF OPERATION: 05/29/2019 PREOPERATIVE DIAGNOSIS: Left great toe abscess and osteomyelitis. POSTOPERATIVE DIAGNOSIS: Left great toe abscess and osteomyelitis. PROCEDURE: Left great toe incision and drainage with bone biopsy. SURGEON: Alexsander Cummins DPM SCARIFIER OPERATOR: None. ANESTHESIA: IV sedation with local. HEMOSTASIS: Surgical dissection. ESTIMATED BLOOD LOSS: Minimal. PATHOLOGY: Bone left great toe. DESCRIPTION OF PROCEDURE: The patient was brought to the operating room and placed on the operating table in the supine position. Following the induction of IV sedation, local anesthesia was achieved using 9 mL of 2% lidocaine plain. The left foot was scrubbed, prepped, and draped in the usual sterile fashion. Attention was directed to the left great toe medial aspect where an abscess was visualized and appreciated. I began by performing a 3-cm linear longitudinal incision through the abscess. There was some perilymph material expressed from the wound. The incision was deepened using sharp and blunt dissection taking care to retract vital neural and vascular structures. All bleeders were cauterized and ligated as necessary. Upon inspection, the abscessed tissue was down to the capsule of the distal phalanx. All devitalized tissue was subsequently removed using a 15-blade scalpel, scissors, and forceps. The underlying tissue over the capsule was noted to be healthy. Next, I performed a linear capsulotomy and periosteal incision over the distal phalanx. Of note, there was some fragmented bone immediately deep to the abscess site. The bone was then resected using a rongeur. A portion of the bone was sectioned for bone culture, and the remainder was sent to Pathology for a bone biopsy. A wound culture was additional obtained. Surgical site was copiously irrigated with sterile saline. The skin was coapted and maintained using 3-0 nylon in a simple interrupted suture fashion. Following the conclusion of the procedure, the surgical site was covered with a Xeroform, and a sterile compressive dressing was applied to the left foot consisting of sterile gauze, Kerlix, and Zeeshan wrap. The patient tolerated the procedure and anesthesia well without complications. He was transferred from the operating room to recovery unit with vital signs stable and neurovasculature intact to the left foot. EVARISTO [id number] cc: [facility]
[2019-05-29] MEDS: TAMSULOSIN HCL 0.4 MG CAP PO SCH (21:28)
[2019-05-29] MEDS: ATORVASTATIN CA 10 MG TABLET (FP) PO SCH (21:28)
[2019-05-29] MEDS: SENNOSIDES 8.6MG TABLET (FP) PO SCH (21:28)
[2019-05-29] MEDS: metoPROLOL SUCCINATE 25 MG TAB.SR.24H (FP) PO SCH (21:28)
[2019-05-29] MEDS: traZODone HCL 100 MG TABLET (FP) PO SCH (21:30)
[2019-05-30] MEDS: ALPRAZolam 1 MG TABLET PO PRN (00:18)
[2019-05-30] MEDS: VANCOMYCIN HCL 1,500 MG in DEXTROSE 5%-WATER - 500 ML IVPB SCH ×2 (02:17→13:23)
[2019-05-30] MEDS: GABAPENTIN 300 MG CAPSULE (FP) PO SCH ×3 (07:05→21:13)
[2019-05-30] MEDS: oxyCODONE HCL 5 MG TABLET PO PRN ×2 (07:06→16:09)
[2019-05-30 08:04] LABS: HEMATOCRIT 37.4 % (35.4-49); HEMOGLOBIN 12.8 GM/dL (11.7-16.9); MCH 32.9 pg (25.7-33.7); MCHC 34.2 g/dl (32.0-35.9); MEAN CELL VOLUME 96.2 fl (80-96); PLATELET COUNT 183 K/MM3 (134-434); RBC 3.89 M/mm3 (4.00-5.60); RDW 12.9 % (11.9-15.9); WHITE BLOOD COUNT 6.5 K/mm3 (4.0-10.0)
[2019-05-30 08:40] LABS: BLOOD UREA NITROGEN 13.9 mg/dL (7-18); CREATININE 0.9 mg/dL (0.55-1.3); MAGNESIUM 2.4 mg/dL (1.8-2.4); PHOSPHOROUS 3.9 mg/dL (2.5-4.9); POTASSIUM 3.7 mmol/L (3.5-5.1)
--- NOTE | 2019-05-30 09:15 | PN ---
Progress Note (short form) - Note Progress Note: 68M s/p I&D left great toe, bone biopsy under MAC/Local. No apparent complications, no new c/o. Vital Signs Temperature 98.3 F 05/30/19 06:00 Pulse Rate 66 05/30/19 06:00 Respiratory Rate 20 05/30/19 06:00 Blood Pressure 160/77 05/30/19 06:00 O2 Sat by Pulse Oximetry (%) 98 05/29/19 16:13 Awake, alert, NAD - No apparent anesthesia complications
[2019-05-30] MEDS ORDERED: ENOXAPARIN NA (PORCINE) 40 MG/0.4 ML DISP.SYRIN SQ SCH (10:00)
[2019-05-30] MEDS ORDERED: DULoxetine HCL 30 MG CAPSULE.DR PO ONE (10:10)
[2019-05-30] MEDS: amLODIPine BESYLATE 5 MG TABLET (FP) PO SCH (10:12)
[2019-05-30] MEDS: DULoxetine HCL 60 MG CAPSULE.DR PO SCH (10:13)
[2019-05-30] MEDS: MUPIROCIN CA 2% TOPICAL CREAM 15 GM TUBE TP SCH ×2 (10:13→21:14)
[2019-05-30] MEDS: LOSARTAN POTASSIUM 50 MG TABLET (FP) PO SCH (10:13)
[2019-05-30] MEDS ORDERED: PT OWN MED DRAWER 7, Y5N ONE (13:16)
--- NOTE | 2019-05-30 15:16 | PN ---
Teaching Attending Note Name of Resident: Nate Escobar ATTENDING PHYSICIAN STATEMENT I saw and evaluated the patient. I reviewed the resident's note and discussed the case with the resident. I agree with the resident's findings and plan as documented with exceptions below. SUBJECTIVE: Patient seen and examined. no new complaints, fevers or chills. OBJECTIVE: Vital Signs Period Temp Pulse Resp BP Sys/Brito Pulse Ox Last 24 Hr 97.5 F-98.3 F 66-83 18-20 127-160/67-80 98 Intake & Output 05/27/19 05/28/19 05/29/19 05/30/19 23:59 23:59 23:59 23:59 Intake Total 3160 1220 1400 Output Total 605 Balance 3160 615 1400 General: sitting in chair, no acute distress Chest: CTAB, no rales or wheezing Abdomen: soft, obese Extremities: left great toe wound with sutures, improved, swelling/erythema, surrounding dried blood. no active discharge or fluctuance noted Home Medications Medication Instructions Recorded Alprazolam 1 mg PO Q6H PRN 07/12/16 Amlodipine Besylate 5 mg PO DAILY 07/12/16 Simvastatin 20 mg PO HS 07/12/16 Tamsulosin HCl [Flomax] 0.8 mg PO HS 07/12/16 Losartan/Hydrochlorothiazide 1 each PO DAILY 11/04/17 [Losartan-Hctz 100-25 mg Tab] Duloxetine HCl [Cymbalta] 60 mg PO DAILY 12/12/18 Metoprolol Succinate 25 mg PO DAILY 12/12/18 Gabapentin 300 mg PO TID 05/26/19 Oxycodone HCl/Acetaminophen 1 tab PO Q8H PRN 05/27/19 [Percocet 5-325 mg Tablet] Meloxicam 15 mg PO DAILY PRN 05/28/19 Active Medications Acetaminophen (Tylenol -) 325 mg PO Q8H PRN PRN Reason: PAIN LEVEL 6-10 Alprazolam (Xanax) 1 mg PO Q24H PRN PRN Reason: ANXIETY Last Admin: 05/30/19 00:18 Dose: 1 mg Amlodipine Besylate (Norvasc -) 5 mg PO DAILY [facility] Last Admin: 05/30/19 10:12 Dose: 5 mg Atorvastatin Calcium (Lipitor -) 10 mg PO HS [facility] Last Admin: 05/29/19 21:28 Dose: 10 mg Docusate Sodium (Colace -) 100 mg PO BID PRN PRN Reason: CONSTIPATION Last Admin: 05/30/19 10:13 Dose: 100 mg Duloxetine HCl (Cymbalta -) 60 mg PO DAILY [facility] Last Admin: 05/30/19 10:13 Dose: 60 mg Enoxaparin Sodium (Lovenox -) 40 mg SQ DAILY [facility] Last Admin: 05/30/19 10:13 Dose: 40 mg Gabapentin (Neurontin -) 300 mg PO TID [facility] Last Admin: 05/30/19 13:22 Dose: 300 mg Vancomycin HCl 1,500 mg/ (Dextrose) 500 mls @ 250 mls/hr IVPB Q12H [facility]; Protocol Last Admin: 05/30/19 13:23 Dose: 250 mls/hr Losartan Potassium (Cozaar -) 100 mg PO DAILY [facility] Last Admin: 05/30/19 10:13 Dose: 100 mg Metoprolol Succinate (Toprol Xl -) 25 mg PO [facility] Last Admin: 05/29/19 21:28 Dose: 25 mg Mupirocin (Bactroban 2% Cream -) 1 applic TP BID [facility] Last Admin: 05/30/19 10:13 Dose: Not Given Oxycodone HCl (Roxicodone -) 5 mg PO Q8H PRN PRN Reason: PAIN LEVEL 6-10 Last Admin: 05/30/19 07:06 Dose: 5 mg Senna (Senna -) 2 tab PO HS [facility] Last Admin: 05/29/19 21:28 Dose: 2 tab Tamsulosin HCl (Flomax -) 0.8 mg PO [facility] Last Admin: 05/29/19 21:28 Dose: 0.8 mg Trazodone HCl (Desyrel -) 100 mg PO [facility] Last Admin: 05/29/19 21:30 Dose: 100 mg Laboratory Results - last 24 hr 05/30/19 05/30/19 05/30/19 06:20 06:20 06:20 WBC 6.5 RBC 3.89 L Hgb 12.8 Hct 37.4 MCV 96.2 H MCH 32.9 MCHC 34.2 RDW 12.9 Plt Count 183 MPV 8.0 Sodium 140 Potassium 3.7 Chloride 104 Carbon Dioxide 31 Anion Gap 5 L BUN 13.9 Creatinine 0.9 Est GFR (CKD-EPI)AfAm 102.07 Est GFR (CKD-EPI)NonAf 88.07 Random Glucose 101 Hemoglobin A1c % 5.7 Calcium 9.0 Phosphorus 3.9 Magnesium 2.4 Microbiology 05/25/19 12:48 Blood - Peripheral Venous Blood Culture - Final NO GROWTH AFTER 5 DAYS INCUBATION 05/25/19 12:48 Blood - Peripheral Venous Blood Culture - Final NO GROWTH AFTER 5 DAYS INCUBATION 05/29/19 12:02 Bone Gram Stain - Final 05/29/19 12:02 Bone Tissue Culture - Preliminary Staphylococcus Latex Coag Pos 05/29/19 12:02 Toe - Left Hallux Gram Stain - Final 05/29/19 12:02 Toe - Left Hallux Wound Culture - Preliminary Presumptive Mrsa (Pbp2a Pos) 05/25/19 12:48 Toe - Left Hallux Gram Stain - Final 05/25/19 12:48 Toe - Left Hallux Wound Culture - Final Mr Ramirez Aureus ASSESSMENT AND PLAN: 87 yom with PMHx of HTN, HLD, BPH admitted with Left great toe pain/swelling/ erythema -Left great toe cellulitis/ulcer, r/o early osteomyelitis s/p I&D/Bone biopsy -Wound Cultures with MRSA -Peripheral neuropathy -Spinal stenosis -HTN -HLD -Anxiety/Depression -BPH Plan: ID/podiatry input noted Vancomycin, follow up bone biopsy and cultures. Anticipate PICC line. Wound dressing per podiatry. Gabapentin/Amlodipine/losartan/Duloxetine/Flomax DVTPPX Lovenox Ongoing PT, OOB. Dispo biopsy results, abx plans. Discussed with patient.
--- NOTE | 2019-05-30 16:47 | PN ---
Progress Note (short form) - Note Progress Note: Pleasant 68 year old male, history of peripheral neuropathy, presented to the ED for admission on request of his PCP for cellulitis of the great toe left foot. Is now s/p incision and drainage with biopsy. Doing well. Denies any complaints. PMHx: HTN, HLD, BPH, and lumbar stenosis, peripheral neuropathy Meds: noted ALL: NKMA LEXY: L foot: pedal pulses palpable, TG wnl, CFT brisk to toe. sutures intact, erythema decrease, no purulence, no drainage, no streaking, no signs of infection MRI L foot: cellulitis with possible early osteomyelitis distal phalanx; s/p incision and drainage with biopsy Imp: 68 year old male, history of peripheral neuropathy, with neuropathic infection of the left hallux and cellulitis Evaluated and reviewed doing well today and wound improving dressing changed w/o complication will follow cultures iv abx per ID will f/u
--- NOTE | 2019-05-30 17:13 | PN ---
Physical Exam: SUBJECTIVE: Patient seen and examined NAEON Pain is tolerable OBJECTIVE: Vital Signs Period Temp Pulse Resp BP Sys/Brito Pulse Ox Last 24 Hr 97.5 F-98.3 F 66-83 18-20 144-160/67-77 GENERAL: The patient is awake, alert, and fully oriented, in no acute distress. HEAD: Normal with no signs of trauma. EYES: sclera anicteric, conjunctiva clear ENT: Ears normal, nares patent, moist mucous membranes. NECK: Trachea midline, full range of motion, supple. LUNGS: Breath sounds equal, clear to auscultation bilaterally, no wheezes, no crackles, no accessory muscle use. Breathing RA HEART: Regular rate and rhythm, S1, S2 without murmur, rub or gallop. ABDOMEN: Soft, nontender, nondistended, no guarding, no rebound. EXTREMITIES: 2+ DP pulses b/l, warm, well-perfused, no edema. Left great toe s/ p I&D w/ wound closed with nylon sutures NEUROLOGICAL: Normal speech, gait not observed. Laboratory Results - last 24 hr 05/30/19 05/30/19 05/30/19 06:20 06:20 06:20 WBC 6.5 RBC 3.89 L Hgb 12.8 Hct 37.4 MCV 96.2 H MCH 32.9 MCHC 34.2 RDW 12.9 Plt Count 183 MPV 8.0 Sodium 140 Potassium 3.7 Chloride 104 Carbon Dioxide 31 Anion Gap 5 L BUN 13.9 Creatinine 0.9 Est GFR (CKD-EPI)AfAm 102.07 Est GFR (CKD-EPI)NonAf 88.07 Random Glucose 101 Hemoglobin A1c % 5.7 Calcium 9.0 Phosphorus 3.9 Magnesium 2.4 Active Medications Generic Name Dose Route Start Last Admin Trade Name Freq PRN Reason Stop Dose Admin Acetaminophen 325 mg 05/29/19 16:11 05/30/19 16:08 Tylenol - PO 325 mg Q8H PRN Administration PAIN LEVEL 6-10 Alprazolam 1 mg 05/29/19 16:11 05/30/19 00:18 Xanax PO 1 mg Q24H PRN Administration ANXIETY Amlodipine Besylate 5 mg 05/30/19 10:00 05/30/19 10:12 Norvasc - PO 5 mg DAILY JOSELINE Administration Atorvastatin Calcium 10 mg 05/29/19 22:00 05/29/19 21:28 Lipitor - PO 10 mg HS JOSELINE Administration Docusate Sodium 100 mg 05/29/19 16:11 05/30/19 10:13 Colace - PO 100 mg BID PRN Administration CONSTIPATION Duloxetine HCl 60 mg 05/30/19 10:00 05/30/19 10:13 Cymbalta - PO 60 mg DAILY JOSELINE Administration Enoxaparin Sodium 40 mg 05/30/19 10:00 05/30/19 10:13 Lovenox - SQ 40 mg DAILY JOSELINE Administration Gabapentin 300 mg 05/29/19 22:00 05/30/19 13:22 Neurontin - PO 300 mg TID JOSELINE Administration Vancomycin HCl 1,500 mg/ 500 mls @ 250 mls/hr 05/30/19 02:00 05/30/19 13:23 Dextrose IVPB 250 mls/hr Q12H JOSELINE Administration Protocol Losartan Potassium 100 mg 05/30/19 10:00 05/30/19 10:13 Cozaar - PO 100 mg DAILY JOSELINE Administration Metoprolol Succinate 25 mg 05/29/19 22:00 05/29/19 21:28 Toprol Xl - PO 25 mg HS JOSELINE Administration Mupirocin 1 applic 05/29/19 22:00 05/30/19 10:13 Bactroban 2% Cream - TP Not Given BID JOSELINE Oxycodone HCl 5 mg 05/29/19 16:11 05/30/19 16:09 Roxicodone - PO 5 mg Q8H PRN Administration PAIN LEVEL 6-10 Senna 2 tab 05/29/19 22:00 05/29/19 21:28 Senna - PO 2 tab HS JOSELINE Administration Tamsulosin HCl 0.8 mg 05/29/19 22:00 05/29/19 21:28 Flomax - PO 0.8 mg HS JOSELINE Administration Trazodone HCl 100 mg 05/29/19 22:00 05/29/19 21:30 Desyrel - PO 100 mg HS JOSELINE Administration ASSESSMENT/PLAN: 68M with past medical history of HTN, HLD, BPH, and lumbar stenosis, presented to the ED due to worsening left big toe 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 Wound cx positive for MRSA. MRI reading cellulitis vs early osteomyltitis. I&D w/ bone bx ([facility]ac[facility], 05/29/19) w/ primary wound closure. #Left great toe ulcer with cellulitis vs Left toe OM > XR Left foot(05/25/19): left foot reveal arthritic changes in the toes, cranial spurring, vascular calcifications and no sign of fracture or subluxation. Blastic or lytic changes > MRI Left foot(05/26/19): no abscess, cellulitis, minimal edema of distal phalanx suggestive reactive hyperemia vs early OM > ESR 20 --normal > CRP 0.9 --elevated > Left foot bone bx -- pending - s/p VAnc and clindamycin given at the ED - abx: --ceftriaxone stopped on day 3 --vancomycin day 6 --mupirocin cream to wound -ID consult(Solomon): --cw vanc --isolation: contact precautions -Podiatry consult(Placido): --I&D w/ bone bx on 05/29/19 --fu bone bx #chronic depression - cw home duloxetine #chronic shoulder pain - cw home percocet #Hypertension -Continue home Amlodipine 5mg daily, Losartan 100mg daily, Toprol Xl 25mg daily -will hold home HCTZ for now #HLD -hold home Simvastatin 20mg daily --NF #BPH -Continue home Tamsulosin 0.4 mg daily #Hypokalemia -K-dur 40meq x2 doses #FEN -Not on any standing fluids -routine bmp monitoring -Sodium restricted diet #Prophylaxis -Lovenox 40mg sq daily #Disposition -full code -admit to med surg Visit type - Emergency Visit Emergency Visit: No - New Patient This patient is new to me today: No - Critical Care Critical Care patient: No ATTENDING PHYSICIAN STATEMENT I saw and evaluated the patient. I reviewed the resident's note and discussed the case with the resident. I agree with the resident's findings and plan as documented. SUBJECTIVE: OBJECTIVE: ASSESSMENT AND PLAN:
[2019-05-30] MEDS: ATORVASTATIN CA 10 MG TABLET (FP) PO SCH (21:13)
[2019-05-30] MEDS: SENNOSIDES 8.6MG TABLET (FP) PO SCH (21:13)
[2019-05-30] MEDS: TAMSULOSIN HCL 0.4 MG CAP PO SCH (21:13)
[2019-05-30] MEDS: metoPROLOL SUCCINATE 25 MG TAB.SR.24H (FP) PO SCH (21:13)
[2019-05-31] MEDS: traZODone HCL 100 MG TABLET (FP) PO SCH (00:01)
[2019-05-31] MEDS: oxyCODONE HCL 5 MG TABLET PO PRN ×2 (00:03→07:57)
[2019-05-31] MEDS ORDERED: PT OWN MED DRAWER 7, Y5N ONE (01:12)
[2019-05-31] MEDS: VANCOMYCIN HCL 1,500 MG in DEXTROSE 5%-WATER - 500 ML IVPB SCH (01:19)
[2019-05-31] MEDS: ALPRAZolam 1 MG TABLET PO PRN (01:20)
[2019-05-31] MEDS: GABAPENTIN 300 MG CAPSULE (FP) PO SCH ×2 (05:41→14:03)
[2019-05-31 07:52] LABS: BASO % 1.2 % (0-2.0); EOS % 4.2 % (0-4.5); HEMATOCRIT 35.3 % (35.4-49); LYMPH % 20.1 % (8-40); MCH 32.6 pg (25.7-33.7); MCHC 33.8 g/dl (32.0-35.9); MEAN CELL VOLUME 96.4 fl (80-96); MONO % 12.9 % (3.8-10.2); NEUT % 61.6 % (42.8-82.8); PLATELET COUNT 183 K/MM3 (134-434); RBC 3.67 M/mm3 (4.00-5.60); RDW 12.9 % (11.9-15.9); WHITE BLOOD COUNT 5.6 K/mm3 (4.0-10.0)
[2019-05-31 08:16] LABS: BLOOD UREA NITROGEN 13.1 mg/dL (7-18); CALCIUM 8.9 mg/dL (8.5-10.1); CREATININE 0.9 mg/dL (0.55-1.3); MAGNESIUM 2.3 mg/dL (1.8-2.4); PHOSPHOROUS 4.3 mg/dL (2.5-4.9); POTASSIUM 3.7 mmol/L (3.5-5.1)
[2019-05-31] MEDS: MUPIROCIN CA 2% TOPICAL CREAM 15 GM TUBE TP SCH (10:08)
[2019-05-31] MEDS ORDERED: DULoxetine HCL 30 MG CAPSULE.DR PO ONE (10:10)
[2019-05-31] MEDS: amLODIPine BESYLATE 5 MG TABLET (FP) PO SCH (10:12)
[2019-05-31] MEDS: DULoxetine HCL 60 MG CAPSULE.DR PO SCH (10:12)
[2019-05-31] MEDS: LOSARTAN POTASSIUM 50 MG TABLET (FP) PO SCH (10:12)
--- NOTE | 2019-05-31 10:30 | PN ---
Teaching Attending Note Name of Resident: Nate Escobar ATTENDING PHYSICIAN STATEMENT I saw and evaluated the patient. I reviewed the resident's note and discussed the case with the resident. I agree with the resident's findings and plan as documented with exceptions below. SUBJECTIVE: Patient seen and examined. no new complaints. OBJECTIVE: Vital Signs Period Temp Pulse Resp BP Sys/Brito Pulse Ox Last 24 Hr 97.5 F-98.7 F 71-82 18-20 136-157/67-73 98 Intake & Output 05/28/19 05/29/19 05/30/19 05/31/19 23:59 23:59 23:59 23:59 Intake Total 3160 1220 2200 400 Output Total 605 Balance 3160 615 2200 400 General: sitting in chair, no acute distress Chest: CTAB, no rales or wheezing Abdomen: soft, obese Extremities: left foot dressing in place, further exam deferred for now Home Medications Medication Instructions Recorded Alprazolam 1 mg PO Q6H PRN 07/12/16 Amlodipine Besylate 5 mg PO DAILY 07/12/16 Simvastatin 20 mg PO HS 07/12/16 Tamsulosin HCl [Flomax] 0.8 mg PO HS 07/12/16 Losartan/Hydrochlorothiazide 1 each PO DAILY 11/04/17 [Losartan-Hctz 100-25 mg Tab] Duloxetine HCl [Cymbalta] 60 mg PO DAILY 12/12/18 Metoprolol Succinate 25 mg PO DAILY 12/12/18 Gabapentin 300 mg PO TID 05/26/19 Oxycodone HCl/Acetaminophen 1 tab PO Q8H PRN 05/27/19 [Percocet 5-325 mg Tablet] Meloxicam 15 mg PO DAILY PRN 05/28/19 Active Medications Acetaminophen (Tylenol -) 325 mg PO Q8H PRN PRN Reason: PAIN LEVEL 6-10 Last Admin: 05/30/19 16:08 Dose: 325 mg Alprazolam (Xanax) 1 mg PO Q24H PRN PRN Reason: ANXIETY Last Admin: 05/31/19 01:20 Dose: 1 mg Amlodipine Besylate (Norvasc -) 5 mg PO DAILY [facility] Last Admin: 05/31/19 10:12 Dose: 5 mg Atorvastatin Calcium (Lipitor -) 10 mg PO HS [facility] Last Admin: 05/30/19 21:13 Dose: 10 mg Docusate Sodium (Colace -) 100 mg PO BID PRN PRN Reason: CONSTIPATION Last Admin: 05/30/19 10:13 Dose: 100 mg Duloxetine HCl (Cymbalta -) 60 mg PO DAILY [facility] Last Admin: 05/31/19 10:12 Dose: 60 mg Enoxaparin Sodium (Lovenox -) 40 mg SQ DAILY [facility] Last Admin: 05/30/19 10:13 Dose: 40 mg Gabapentin (Neurontin -) 300 mg PO TID [facility] Last Admin: 05/31/19 05:41 Dose: 300 mg Losartan Potassium (Cozaar -) 100 mg PO DAILY [facility] Last Admin: 05/31/19 10:12 Dose: 100 mg Metoprolol Succinate (Toprol Xl -) 25 mg PO [facility] Last Admin: 05/30/19 21:13 Dose: 25 mg Mupirocin (Bactroban 2% Cream -) 1 applic TP BID [facility] Last Admin: 05/31/19 10:08 Dose: Not Given Oxycodone HCl (Roxicodone -) 5 mg PO Q8H PRN PRN Reason: PAIN LEVEL 6-10 Last Admin: 05/31/19 07:57 Dose: 5 mg Senna (Senna -) 2 tab PO [facility] Last Admin: 05/30/19 21:13 Dose: 2 tab Tamsulosin HCl (Flomax -) 0.8 mg PO HS [facility] Last Admin: 05/30/19 21:13 Dose: 0.8 mg Trazodone HCl (Desyrel -) 100 mg PO [facility] Last Admin: 05/31/19 00:01 Dose: 100 mg Laboratory Results - last 24 hr 05/31/19 05/31/19 05/31/19 06:58 06:58 06:58 WBC 5.6 RBC 3.67 L Hgb 12.0 Hct 35.3 L MCV 96.4 H MCH 32.6 MCHC 33.8 RDW 12.9 Plt Count 183 MPV 8.0 Absolute Neuts (auto) 3.4 Neutrophils % 61.6 Lymphocytes % 20.1 Monocytes % 12.9 H Eosinophils % 4.2 Basophils % 1.2 Nucleated RBC % 0 Sodium 142 Potassium 3.7 Chloride 107 Carbon Dioxide 30 Anion Gap 6 L BUN 13.1 Creatinine 0.9 Est GFR (CKD-EPI)AfAm 102.07 Est GFR (CKD-EPI)NonAf 88.07 Random Glucose 111 H Calcium 8.9 Phosphorus 4.3 Magnesium 2.3 Random Vancomycin 30.3 H* Microbiology 05/29/19 12:02 Bone Gram Stain - Final 05/29/19 12:02 Bone Tissue Culture - Final S Aureus 05/29/19 12:02 Bone Anaerobic Culture - Final NO ANAEROBES WERE ISOLATED 05/29/19 12:02 Toe - Left Hallux Gram Stain - Final 05/29/19 12:02 Toe - Left Hallux Wound Culture - Final S Aureus 05/25/19 12:48 Blood - Peripheral Venous Blood Culture - Final NO GROWTH AFTER 5 DAYS INCUBATION 05/25/19 12:48 Blood - Peripheral Venous Blood Culture - Final NO GROWTH AFTER 5 DAYS INCUBATION 05/25/19 12:48 Toe - Left Hallux Gram Stain - Final 05/25/19 12:48 Toe - Left Hallux Wound Culture - Final S Aureus ASSESSMENT AND PLAN: 87 yom with PMHx of HTN, HLD, BPH admitted with Left great toe pain/swelling/ erythema -Left great toe cellulitis/ulcer, r/o early osteomyelitis s/p I&D/Bone biopsy -Wound Cultures with MRSA -Peripheral neuropathy -Spinal stenosis -HTN -HLD -Anxiety/Depression -BPH Plan: ID/podiatry input noted Vancomycin, follow up bone biopsy and cultures. Anticipate PICC line. Wound dressing per podiatry. Gabapentin/Amlodipine/losartan/Duloxetine/Flomax DVTPPX Lovenox Ongoing PT, OOB. Dispo discuss with ID about possible Dc with PICC/IV abx with outpatient follow up on bone biopsy results and taper regimen accordingly. Discussed with patient.
--- NOTE | 2019-05-31 12:23 | PN ---
Progress Note, Physician History of Present Illness: S/P OR DEBRIDEMENT/ BONE BX OPERATIVE C/S + MRSA AWAKE, ALERT SUPINE IN BED NO C/O FOOT PAIN NO C/O FEVER/ CHILLS VANCOMYCIN LEVEL 30, BUT DONE APPROX 5- 6HR AFTER INFUSION - Current Medication List Current Medications: Active Medications Acetaminophen (Tylenol -) 325 mg PO Q8H PRN PRN Reason: PAIN LEVEL 6-10 Last Admin: 05/30/19 16:08 Dose: 325 mg Alprazolam (Xanax) 1 mg PO Q24H PRN PRN Reason: ANXIETY Last Admin: 05/31/19 01:20 Dose: 1 mg Amlodipine Besylate (Norvasc -) 5 mg PO DAILY [facility] Last Admin: 05/31/19 10:12 Dose: 5 mg Atorvastatin Calcium (Lipitor -) 10 mg PO HS [facility] Last Admin: 05/30/19 21:13 Dose: 10 mg Docusate Sodium (Colace -) 100 mg PO BID PRN PRN Reason: CONSTIPATION Last Admin: 05/30/19 10:13 Dose: 100 mg Duloxetine HCl (Cymbalta -) 60 mg PO DAILY [facility] Last Admin: 05/31/19 10:12 Dose: 60 mg Enoxaparin Sodium (Lovenox -) 40 mg SQ DAILY [facility] Last Admin: 05/30/19 10:13 Dose: 40 mg Gabapentin (Neurontin -) 300 mg PO TID [facility] Last Admin: 05/31/19 05:41 Dose: 300 mg Losartan Potassium (Cozaar -) 100 mg PO DAILY [facility] Last Admin: 05/31/19 10:12 Dose: 100 mg Metoprolol Succinate (Toprol Xl -) 25 mg PO HS [facility] Last Admin: 05/30/19 21:13 Dose: 25 mg Mupirocin (Bactroban 2% Cream -) 1 applic TP BID [facility] Last Admin: 05/31/19 10:08 Dose: Not Given Oxycodone HCl (Roxicodone -) 5 mg PO Q8H PRN PRN Reason: PAIN LEVEL 6-10 Last Admin: 05/31/19 07:57 Dose: 5 mg Senna (Senna -) 2 tab PO HS [facility] Last Admin: 05/30/19 21:13 Dose: 2 tab Tamsulosin HCl (Flomax -) 0.8 mg PO HS [facility] Last Admin: 05/30/19 21:13 Dose: 0.8 mg Trazodone HCl (Desyrel -) 100 mg PO HS [facility] Last Admin: 05/31/19 00:01 Dose: 100 mg - Objective Vital Signs: Vital Signs Temperature 97.9 F 05/31/19 10:18 Pulse Rate 80 05/31/19 10:18 Respiratory Rate 18 05/31/19 10:18 Blood Pressure 140/70 05/31/19 10:18 O2 Sat by Pulse Oximetry (%) 98 05/30/19 19:48 Constitutional: Yes: No Distress Eyes: Yes: Conjunctiva Clear Cardiovascular: Yes: Regular Rate and Rhythm, S1, S2 Respiratory: Yes: CTA Bilaterally Gastrointestinal: Yes: Normal Bowel Sounds, Soft Extremities: Yes: Other (GREAT TOE REMAINS SWOLLEN, RED SUTURES IN PLACE) Labs: CBC, BMP 05/31/19 06:58 05/31/19 06:58 Assessment/Plan CELLULITIS/ OSTEOMYELITIS GREAT TOE + WOUND/ BONE C/S MRSA ADVISE PICC FOR OUTPATIENT ANTIBIOTIC THERAPY VANCOMYCIN 1250MG Q12H TO START TOMORROW X 6 WEEKS
--- NOTE | 2019-05-31 12:30 | PN ---
Physical Exam: SUBJECTIVE: Patient seen and examined NAEON Pain is nearly resolved in LLE toe. Able to ambulate. OBJECTIVE: Vital Signs Period Temp Pulse Resp BP Sys/Brito Pulse Ox Last 24 Hr 97.5 F-98.7 F 71-82 18-20 136-157/67-73 98 GENERAL: The patient is awake, alert, and fully oriented, in no acute distress. HEAD: Normal with no signs of trauma. EYES: sclera anicteric, conjunctiva clear ENT: Ears normal, nares patent, moist mucous membranes. NECK: Trachea midline, full range of motion, supple. LUNGS: Breath sounds equal, clear to auscultation bilaterally, no wheezes, no crackles, no accessory muscle use. Breathing RA HEART: Regular rate and rhythm, S1, S2 without murmur, rub or gallop. ABDOMEN: Soft, nontender, nondistended, no guarding, no rebound. EXTREMITIES: 2+ DP pulses b/l, warm, well-perfused, no edema. Left great toe s/ p I&D w/ wound closed with nylon sutures, diffuse erythema of Left first toe w/ o discrete demarcation. NEUROLOGICAL: Normal speech, gait not observed. Laboratory Results - last 24 hr 05/31/19 05/31/19 05/31/19 06:58 06:58 06:58 WBC 5.6 RBC 3.67 L Hgb 12.0 Hct 35.3 L MCV 96.4 H MCH 32.6 MCHC 33.8 RDW 12.9 Plt Count 183 MPV 8.0 Absolute Neuts (auto) 3.4 Neutrophils % 61.6 Lymphocytes % 20.1 Monocytes % 12.9 H Eosinophils % 4.2 Basophils % 1.2 Nucleated RBC % 0 Sodium 142 Potassium 3.7 Chloride 107 Carbon Dioxide 30 Anion Gap 6 L BUN 13.1 Creatinine 0.9 Est GFR (CKD-EPI)AfAm 102.07 Est GFR (CKD-EPI)NonAf 88.07 Random Glucose 111 H Calcium 8.9 Phosphorus 4.3 Magnesium 2.3 Random Vancomycin 30.3 H* Active Medications Generic Name Dose Route Start Last Admin Trade Name Freq PRN Reason Stop Dose Admin Acetaminophen 325 mg 05/29/19 16:11 05/30/19 16:08 Tylenol - PO 325 mg Q8H PRN Administration PAIN LEVEL 6-10 Alprazolam 1 mg 05/29/19 16:11 05/31/19 01:20 Xanax PO 1 mg Q24H PRN Administration ANXIETY Amlodipine Besylate 5 mg 05/30/19 10:00 05/31/19 10:12 Norvasc - PO 5 mg DAILY JOSELINE Administration Atorvastatin Calcium 10 mg 05/29/19 22:00 05/30/19 21:13 Lipitor - PO 10 mg HS JOSELINE Administration Docusate Sodium 100 mg 05/29/19 16:11 05/30/19 10:13 Colace - PO 100 mg BID PRN Administration CONSTIPATION Duloxetine HCl 60 mg 05/30/19 10:00 05/31/19 10:12 Cymbalta - PO 60 mg DAILY JOSELINE Administration Enoxaparin Sodium 40 mg 05/30/19 10:00 05/30/19 10:13 Lovenox - SQ 40 mg DAILY JOSELINE Administration Gabapentin 300 mg 05/29/19 22:00 05/31/19 05:41 Neurontin - PO 300 mg TID JOSELINE Administration Losartan Potassium 100 mg 05/30/19 10:00 05/31/19 10:12 Cozaar - PO 100 mg DAILY JOSELINE Administration Metoprolol Succinate 25 mg 05/29/19 22:00 05/30/19 21:13 Toprol Xl - PO 25 mg HS JOSELINE Administration Mupirocin 1 applic 05/29/19 22:00 05/31/19 10:08 Bactroban 2% Cream - TP Not Given BID JOSELINE Oxycodone HCl 5 mg 05/29/19 16:11 05/31/19 07:57 Roxicodone - PO 5 mg Q8H PRN Administration PAIN LEVEL 6-10 Senna 2 tab 05/29/19 22:00 05/30/19 21:13 Senna - PO 2 tab HS JOSELINE Administration Tamsulosin HCl 0.8 mg 05/29/19 22:00 05/30/19 21:13 Flomax - PO 0.8 mg HS JOSEILNE Administration Trazodone HCl 100 mg 05/29/19 22:00 05/31/19 00:01 Desyrel - PO 100 mg HS JOSELINE Administration ASSESSMENT/PLAN: 68M with past medical history of HTN, HLD, BPH, and lumbar stenosis, presented to the ED due to worsening left big toe ulcer 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 Wound cx positive for MRSA. MRI reading cellulitis vs early osteomyltitis. I&D w/ bone bx ([facility]acido, 05/29/19) w/ primary wound closure. ID recommending PICC for long- termm vanc. Able to ambulate w/ post-op shoe. #Left great toe ulcer with cellulitis vs Left toe OM > XR Left foot(05/25/19): left foot reveal arthritic changes in the toes, cranial spurring, vascular calcifications and no sign of fracture or subluxation. No blastic or lytic changes > MRI Left foot(05/26/19): no abscess, cellulitis, minimal edema of distal phalanx suggestive reactive hyperemia vs early OM > ESR 20 --normal > CRP 0.9 --elevated - s/p VAnc and clindamycin given at the ED - abx: --ceftriaxone stopped on day 3 --vancomycin day 7 --mupirocin cream to wound -ID consult(Solomon): --cw vanc --isolation: contact precautions -Podiatry consult(Placido): --I&D w/ bone bx on 05/29/19 --fu bone bx #chronic depression - cw home duloxetine #chronic shoulder pain - cw home percocet #Hypertension -Continue home Amlodipine 5mg daily, Losartan 100mg daily, Toprol Xl 25mg daily -will hold home HCTZ for now #HLD -hold home Simvastatin 20mg daily --NF #BPH -Continue home Tamsulosin 0.4 mg daily #Hypokalemia --resolved -K-dur 40meq x2 doses #FEN -Not on any standing fluids -routine bmp monitoring -regular diet #Prophylaxis -Lovenox 40mg sq daily #Disposition -full code -admit to med surg Visit type - Emergency Visit Emergency Visit: No - New Patient This patient is new to me today: No - Critical Care Critical Care patient: No ATTENDING PHYSICIAN STATEMENT I saw and evaluated the patient. I reviewed the resident's note and discussed the case with the resident. I agree with the resident's findings and plan as documented. SUBJECTIVE: OBJECTIVE: ASSESSMENT AND PLAN:
[2019-05-31 15:45] VITALS: BP 169/78; PULSE 75; TEMP 98.2
--- NOTE | 2019-05-31 16:15 | PN ---
Progress Note (short form) - Note Progress Note: Pleasant 68 year old male, history of peripheral neuropathy, presented to the ED for admission on request of his PCP for cellulitis of the great toe left foot. Patient for d/c today with PICC placed . PMHx: HTN, HLD, BPH, and lumbar stenosis, peripheral neuropathy Meds: noted ALL: NKMA LEXY: L foot: pedal pulses palpable, TG wnl, CFT brisk to toe. sutures intact, erythema decrease, no purulence, no drainage, no streaking, no signs of infection MRI L foot: cellulitis with possible early osteomyelitis distal phalanx; s/p incision and drainage with biopsy Imp: 68 year old male, history of peripheral neuropathy, with neuropathic infection of the left hallux and cellulitis Evaluated and reviewed Can leave dressing c/d/i until follow up if gets wet to call us PICC per ID f/u next tuesday in wound care center with Wr. Cummins.
--- NOTE | 2019-05-31 16:34 | PATH ---
Surgical Pathology Report Patient Name: PARADISE MCMANUS Med. Rec. #: [id number] /Age/Gender: 1950 (Age: 68) / M Account: [id number] Location: [facility] MED/SURG Taken: 05/29/2019 Received: 05/30/2019 Reported: 05/31/2019 Physicians: Hugo Gomez MD Specimen(s) Received LEFT HALLUX BONE BIOPSIES Clinical History Abscess of left great toe with osteomyelitis Final Diagnosis LEFT HALLUX BONE BIOPSIES: BONE FRAGMENTS, NEGATIVE FOR OSTEOMYELITIS. ADJACENT FIBROCONNECTIVE TISSUE WITH FOCAL MILD CHRONIC INFLAMMATION. Electronically Signed Boy Hunt M.D. Gross Description Received in formalin labeled "left hallux bone biopsies," is a 0.9 x 0.6 x 0.2 cm aggregate of osman bone fragments. The specimen is entirely submitted in one cassette, following decalcification. /05/30/201905/30/2019
--- NOTE | 2019-05-31 19:08 | DS ---
Physical Exam: SUBJECTIVE: Patient seen and examined OBJECTIVE: Vital Signs Period Temp Pulse Resp BP Sys/Brito Pulse Ox Last 24 Hr 97.9 F-98.2 F 71-82 18-20 136-169/69-78 98 PHYSICAL EXAM GENERAL: The patient is awake, alert, and fully oriented, in no acute distress. HEAD: Normal with no signs of trauma. EYES: sclera anicteric, conjunctiva clear ENT: Ears normal, nares patent, moist mucous membranes. NECK: Trachea midline, full range of motion, supple. LUNGS: Breath sounds equal, clear to auscultation bilaterally, no wheezes, no crackles, no accessory muscle use. Breathing RA HEART: Regular rate and rhythm, S1, S2 without murmur, rub or gallop. ABDOMEN: Soft, nontender, nondistended, no guarding, no rebound. EXTREMITIES: 2+ DP pulses b/l, warm, well-perfused, no edema. Left great toe s/ p I&D w/ wound closed with nylon sutures, diffuse erythema of Left first toe w/ o discrete demarcation. NEUROLOGICAL: Normal speech, gait not observed. LABS Laboratory Results - last 24 hr 05/31/19 05/31/19 05/31/19 06:58 06:58 06:58 WBC 5.6 RBC 3.67 L Hgb 12.0 Hct 35.3 L MCV 96.4 H MCH 32.6 MCHC 33.8 RDW 12.9 Plt Count 183 MPV 8.0 Absolute Neuts (auto) 3.4 Neutrophils % 61.6 Lymphocytes % 20.1 Monocytes % 12.9 H Eosinophils % 4.2 Basophils % 1.2 Nucleated RBC % 0 Sodium 142 Potassium 3.7 Chloride 107 Carbon Dioxide 30 Anion Gap 6 L BUN 13.1 Creatinine 0.9 Est GFR (CKD-EPI)AfAm 102.07 Est GFR (CKD-EPI)NonAf 88.07 Random Glucose 111 H Calcium 8.9 Phosphorus 4.3 Magnesium 2.3 Random Vancomycin 30.3 H* HOSPITAL COURSE: 68M with past medical history of HTN, HLD, BPH, and lumbar stenosis, presented to the ED due to worsening left big toe ulcer that started 5 days [employer]. Wound cx positive for MRSA. MRI reading cellulitis vs early osteomyltitis. I&D w/ bone bx ([facility], 11/5/19) w/ primary wound closure. ID recommending PICC for long- termm vanc. Able to ambulate w/ post-op shoe. Podiatry okay with patient keeping dressing until Podiatry fu. Stable for d/c. Date of Admission:05/25/19 Date of Discharge: 05/31/19 Minutes to complete discharge: 20 Discharge Summary Problems reviewed: Yes Reason For Visit: CELLULITIS Condition: Stable - Instructions Diet, Activity, Other Instructions: You were evaluated in the hospital for foot pain with associated warm and swelling. You received intravenous antibiotics for a soft-tissue infection of your Left big toe. MRI imaging showed that the infection might be involving the bone. A gluer machine setup operator was consulted and removed some of the infected tissue and sent a bone biopsy. You were evaluated by Infectious disease doctor and recommended prolonged antibiotic course through an IV line. Medications: - NEW medications: --[id number] mg IV every 12 hours for 6 weeks, to start 06/01/2019 - continue with your other previously prescribed home medications Physicians to follow up with in 1-2weeks: - Podiatry(Dr Cummins): Please follow up on June 05, 2019 at 10am at the Wound care clinic at [facility] - Infectious Disease (Dr. Carbajal): for antibiotic management - PCP(Dr Gaxiola): to review your hospitalization INSTRUCTIONS: - Please note that you will need weekly blood work including CBC, BMP, LFTs, and vanco levels drawn while on the antibiotic with Dr. Zendejas or Dr. Carbajal. Routine PICC line care. - Please follow up with Dr. Cummins on Tuesday for dressing change. Until then , please keep area clean and dry at all times. - You may apply Bactroban cream at the incision site. Can apply overlying dry gauze. - Please wear the surgical shoe regularly. Please seek immediate medical evaluation or go to the Emergency Department if you experience: - severe worsening foot pain, foul smelling drainage of the toe wound, increased redness extending through the foot - fever, chills, confusion Referrals: Emir Carbajal MD [Staff Physician] - 1 Week Alexsander Cummins MD [Staff Physician] - 1 Week Uri Gaxiola MD [Primary Care Provider] - Disposition: HOME - Home Medications Comprehensive Discharge Medication List: Ambulatory Orders Amlodipine Besylate 5 mg PO DAILY 07/12/16 Simvastatin 20 mg PO HS 07/12/16 Tamsulosin HCl [Flomax] 0.8 mg PO HS 07/12/16 Losartan/Hydrochlorothiazide [Losartan-Hctz 100-25 mg Tab] 1 each PO DAILY 11/04 Duloxetine HCl [Cymbalta] 60 mg PO DAILY 12/12/18 Metoprolol Succinate 25 mg PO DAILY 12/12/18 Gabapentin 300 mg PO TID 05/26/19 Meloxicam 15 mg PO DAILY PRN 05/28/19 Mupirocin Cream [Bactroban 2% Cream -] 1 applic TP BID #1 tube 05/31/19 Polyhexam Biguan/Gauze Bandage [Kerlix Amd Bandage 0.2% Roll] 1 each TP DAILY # 14 bandage 05/31/19 Vancomycin HCl in Dextrose 5 % [Vancomycin 1.25 Gram/[id number]] 1.25 gm IV Q12H 42 Days #84 plast..bag 05/31/19 This patient is new to me today: No Emergency Visit: No Critical Care patient: No - Discharge Referral Referred to [facility] No ATTENDING PHYSICIAN STATEMENT I saw and evaluated the patient. I reviewed the resident's note and discussed the case with the resident. I agree with the resident's findings and plan as documented. SUBJECTIVE: OBJECTIVE: ASSESSMENT AND PLAN:
== END 2019-05-31 17:05 | disposition home or self-care (01) | DRG 478 ==
LOC: SUPCPDRO 11:43 → JER 11:43 → JERBED 15:21 → J5S 16:28 → J8W 05-26 13:57
PROVIDERS: ATTEND Hospitalist
PROC: 0QBR0ZX Excision of Left Toe Phalanx, Open Approach, Diagnostic (ICD-10-PCS; 2019-05-29)
PROC: 0J9R0ZZ Drainage of Left Foot Subcutaneous Tissue and Fascia, Open Approach (ICD-10-PCS; principal; 2019-05-29 12:30)
PROC: 02HV33Z Insertion of Infusion Device into Superior Vena Cava, Percutaneous Approach (ICD-10-PCS; 2019-05-31)
PROC: B518ZZA Fluoroscopy of Superior Vena Cava, Guidance (ICD-10-PCS; 2019-05-31)
DX: M86.8X7 Other osteomyelitis, ankle and foot (principal); L02.612 Cutaneous abscess of left foot; L97.528 Non-pressure chronic ulcer of other part of left foot with other specified severity; L03.032 Cellulitis of left toe; I10 Essential (primary) hypertension; E87.5 Hyperkalemia; N40.0 Benign prostatic hyperplasia without lower urinary tract symptoms; A49.02 Methicillin resistant Staphylococcus aureus infection, unspecified site; F41.8 Other specified anxiety disorders; M48.061 Spinal stenosis, lumbar region without neurogenic claudication; E87.6 Hypokalemia; G62.89 Other specified polyneuropathies
CPT/HCPCS: 36415; 36569; 73630-TC-LT; 73718-TC-LT; 77001-TC-FY; 80048; 80053; 83036; 83735; 84100; 85025; 85027; 85651; 86140; 87040; 87070; 87075; 87077; 87186; 87205; 94760; 97116-GP; 99283-25; C1751; G0480

== ENCOUNTER 2022-03-30 17:00 | Inpatient (IN) | payer OTHER, MEDICARE ==
[2022-03-30 17:27] VITALS: BMI 31.1
[2022-03-30] MEDS ORDERED: ACETAMINOPHEN 325 MG TABLET (FP) ONE (17:31)
[2022-03-30] MEDS ORDERED: ACETAMINOPHEN 500 MG TABLET (FP) PO ONE (17:51)
[2022-03-30] MEDS ORDERED: SODIUM CHLORIDE 0.9% 500 ML INFUS.BAG IV ONE (17:51)
[2022-03-30 19:13] LABS: BASO % 0.9 % (0-2.0); EOS % 4.6 % (0-4.5); HEMATOCRIT 48.7 % (35.4-49); HEMOGLOBIN 16.3 GM/dL (11.7-16.9); LYMPH % 32.3 % (8-40); MCH 28.3 pg (25.7-33.7); MCHC 33.5 g/dl (32.0-35.9); MEAN CELL VOLUME 84.4 fl (80-96); MEAN PLT VOLUME 8.9 fl (7.5-11.1); MONO % 8.4 % (3.8-10.2); NEUT % 53.8 % (42.8-82.8); PLATELET COUNT 129 10^3/uL (134-434); RBC 5.76 M/mm3 (4.00-5.60); RDW 14.4 % (11.9-15.9); WHITE BLOOD COUNT 6.5 K/mm3 (4.0-10.0)
[2022-03-30 19:43] LABS: INR 1.48 (0.83-1.09); PROTHROMBIN TIME (PATIENT) 17.1 SEC (9.7-13.0)
[2022-03-30 19:45] LABS: ACTIVATED PTT 34.3 SECONDS (25.2-36.5)
[2022-03-30 19:49] LABS: EPI CELLS 0 /uL (0-25.1); HYALINE CASTS 0 /uL (0-3.1); URINE APPEARANCE CLEAR; URINE BACTERIA 2 /uL (0-1359); URINE BILIRUBIN NEGATIVE (NEGATIVE); URINE COLOR YELLOW; URINE GLUCOSE (UA) NEGATIVE (NEGATIVE); URINE KETONE NEGATIVE (NEGATIVE); URINE LEUK ESTERASE NEGATIVE (NEGATIVE); URINE NITRITE NEGATIVE (NEGATIVE); URINE PROTEIN NEGATIVE (NEGATIVE); URINE RBC 1 /uL (0-23.9); URINE WBC 2 /uL (0-25.8)
[2022-03-30 19:56] LABS: BLOOD UREA NITROGEN 24.7 mg/dL (7-18)
[2022-03-30 19:59] LABS: CREATININE 1.5 mg/dL (0.55-1.3)
[2022-03-30 20:01] LABS: BILIRUBIN,TOTAL 1.3 mg/dL (0.2-1); TOT PROT 5.3 g/dl (6.4-8.2)
[2022-03-30 20:04] LABS: N-TERMINAL BNP 1963.1 pg/ml (5-125)
[2022-03-30 20:08] LABS: LACTIC ACID 2.6 mmol/L (0.4-2.0)
[2022-03-30] MEDS ORDERED: VANCOMYCIN 1 GM in D5W (PRE-DOCKED) 1,000 MG/250 ML IVPB ONE (23:13)
[2022-03-30] MEDS ORDERED: PIPERACILLIN/TAZOB 3.375 GM 3.375 GM in DEXTROSE 5%-WATER - 50 ML IVPB ONE (23:15)
[2022-03-30] MEDS ORDERED: PIPERACILLIN/TAZOB 3.375 GM 3.375 GM/50 ML BAG IVPB ONE (23:58)
[2022-03-30] MEDS ORDERED: VANCOMYCIN/WATER FOR INJ (PEG) 1,000 MG/200 ML BAG IVPB ONE (23:58)
[2022-03-31 00:44] LABS: CALCIUM 7.9 mg/dL (8.5-10.1)
[2022-03-31 00:45] LABS: BLOOD UREA NITROGEN 22.9 mg/dL (7-18)
[2022-03-31 00:48] LABS: CREATININE 1.1 mg/dL (0.55-1.3)
[2022-03-31] MEDS ORDERED: SODIUM CHLORIDE 1,000 ML IV SCH ×2 (01:15→11:08)
[2022-03-31] MEDS ORDERED: ACETAMINOPHEN 1000 MG/100 ML BAG IVPB PRN ×2 (03:50→15:40)
[2022-03-31] MEDS ORDERED: oxyCODONE HCL 5 MG TABLET PO PRN (03:50)
[2022-03-31] MEDS ORDERED: PIPERACILLIN/TAZOB 2.25 GM 2.25 GM/50 ML BAG IVPB ONE ×2 (04:57→08:36)
[2022-03-31] MEDS: PIPERACILLIN/TAZOB 2.25 GM 2.25 GM in DEXTROSE 5%-WATER - 50 ML IVPB SCH ×4 (05:02→12:12)
[2022-03-31] MEDS ORDERED: oxyCODONE HCL 5 MG TABLET ONE (05:03)
[2022-03-31 07:40] LABS: CALCIUM 8.4 mg/dL (8.5-10.1)
[2022-03-31 07:42] LABS: ALBUMIN 2.2 g/dl (3.4-5.0); BLOOD UREA NITROGEN 21.2 mg/dL (7-18); MAGNESIUM 2.1 mg/dL (1.8-2.4)
[2022-03-31 07:43] LABS: BILIRUBIN,TOTAL 1.2 mg/dL (0.2-1); TOT PROT 5.8 g/dl (6.4-8.2)
[2022-03-31] MEDS ORDERED: ENOXAPARIN NA (PORCINE) 40 MG/0.4 ML DISP.SYRIN SQ ONE (08:39)
[2022-03-31 09:17] LABS: HEMATOCRIT 32.9 % (35.4-49); HEMOGLOBIN 11.1 GM/dL (11.7-16.9); MCH 31.1 pg (25.7-33.7); MCHC 33.7 g/dl (32.0-35.9); MEAN PLT VOLUME 7.7 fl (7.5-11.1); PLATELET COUNT 405 10^3/uL (134-434); RBC 3.56 M/mm3 (4.00-5.60); RDW 14.4 % (11.9-15.9); WHITE BLOOD COUNT 16.4 K/mm3 (4.0-10.0)
[2022-03-31 09:23] LABS: MEAN CELL VOLUME 92.2 fl (80-96)
[2022-03-31] MEDS ORDERED: VANCOMYCIN/WATER 1250 MG 1,250 MG/250 ML BAG IVPB SCH (10:00)
[2022-03-31] MEDS ORDERED: CEFAZOLIN SODIUM 2 GM in DEXTROSE 5%-WATER 100 ML IVPB SCH (10:00)
[2022-03-31] MEDS ORDERED: VANCOMYCIN PREMIX 1.5 GM 1,500 MG/300 ML BAG IVPB ONE (10:15)
[2022-03-31] MEDS ORDERED: VANCOMYCIN HCL 1,500 MG in DEXTROSE 5%-WATER - 500 ML IVPB ONE (10:15)
[2022-03-31] MEDS ORDERED: ceFAZolin SODIUM 1 GM VIAL ONE (10:30)
[2022-03-31 11:04] LABS: ANISOCYTOSIS 0; MACROCYTOSIS 0; PLATELET ESTIMATE NORMAL
[2022-03-31] MEDS ORDERED: SODIUM CHLORIDE 1,000 ML IV STA (11:08)
[2022-03-31] MEDS ORDERED: PIPERACILLIN/TAZOB 4.5 GM 4.5 GM/100 ML BAG IVPB ONE (11:08)
[2022-03-31] MEDS: PIPERACILLIN/TAZOB 4.5 GM 4.5 GM in DEXTROSE 5%-WATER 100 ML IVPB SCH ×2 (11:19→20:11)
[2022-03-31] MEDS: SODIUM CHLORIDE 1,000 ML IV SCH (11:30)
[2022-03-31] MEDS: ENOXAPARIN NA (PORCINE) 40 MG/0.4 ML DISP.SYRIN SQ SCH (11:30)
[2022-03-31] MEDS ORDERED: metoPROLOL SUCCINATE 25 MG TAB.SR.24H (FP) PO ONE ×2 (17:25→17:49)
[2022-03-31] MEDS ORDERED: DULoxetine HCL 30 MG CAPSULE.DR PO SCH (17:30)
[2022-03-31] MEDS: metoPROLOL SUCCINATE 25 MG TAB.SR.24H (FP) PO SCH (17:52)
[2022-03-31] MEDS: BACITRACIN 15 GM TUBE TOPICAL OINTMENT TP SCH ×2 (21:53→23:10)
[2022-03-31] MEDS: VANCOMYCIN/WATER 1250 MG 1,250 MG/250 ML BAG IVPB SCH (21:53)
[2022-03-31] MEDS: GABAPENTIN 300 MG CAPSULE PO SCH (21:53)
[2022-03-31] MEDS ORDERED: ATORVASTATIN CA 10 MG TABLET (FP) PO SCH (22:00)
[2022-03-31] MEDS ORDERED: VANCOMYCIN/WATER FOR INJ (PEG) 1,000 MG/200 ML BAG IVPB SCH (23:00)
[2022-03-31] MEDS ORDERED: VANCOMYCIN 1 GM in D5W (PRE-DOCKED) 1,000 MG/250 ML IVPB SCH (23:55)
[2022-04-01] MEDS: PIPERACILLIN/TAZOB 4.5 GM 4.5 GM in DEXTROSE 5%-WATER 100 ML IVPB SCH ×3 (02:53→18:55)
[2022-04-01] MEDS: GABAPENTIN 300 MG CAPSULE PO SCH ×3 (05:17→21:19)
[2022-04-01] MEDS: SODIUM CHLORIDE 1,000 ML IV SCH ×2 (05:22→20:08)
[2022-04-01] MEDS: metoPROLOL SUCCINATE 25 MG TAB.SR.24H (FP) PO SCH (09:59)
[2022-04-01] MEDS: BACITRACIN 15 GM TUBE TOPICAL OINTMENT TP SCH ×2 (10:00→21:20)
[2022-04-01] MEDS: ENOXAPARIN NA (PORCINE) 40 MG/0.4 ML DISP.SYRIN SQ SCH (10:00)
[2022-04-01] MEDS: VANCOMYCIN/WATER 1250 MG 1,250 MG/250 ML BAG IVPB SCH ×2 (10:00→21:20)
[2022-04-01 10:12] LABS: HEMATOCRIT 31.1 % (35.4-49); HEMOGLOBIN 10.7 GM/dL (11.7-16.9); MCH 32.1 pg (25.7-33.7); MCHC 34.4 g/dl (32.0-35.9); MEAN CELL VOLUME 93.3 fl (80-96); MEAN PLT VOLUME 7.4 fl (7.5-11.1); PLATELET COUNT 438 10^3/uL (134-434); RBC 3.34 M/mm3 (4.00-5.60); RDW 14.6 % (11.9-15.9); WHITE BLOOD COUNT 12.4 K/mm3 (4.0-10.0)
[2022-04-01 10:43] LABS: ANISOCYTOSIS 0; HELMET CELLS 0; HOWELL-JOLLY BODIES 0; MACROCYTOSIS 0; OVALOCYTE 0; ROULEAU 0; SICKELED CELLS 0; TARGET CELLS 0; TEAR DROP CELLS 0; TOXIC GRANULATION 0
[2022-04-01 10:45] LABS: ALBUMIN 1.9 g/dl (3.4-5.0); CALCIUM 7.7 mg/dL (8.5-10.1)
[2022-04-01 10:48] LABS: CREATININE 0.6 mg/dL (0.55-1.3)
[2022-04-01 10:50] LABS: TOT PROT 5.6 g/dl (6.4-8.2)
[2022-04-01] MEDS ORDERED: ONDANSETRON 4 MG/2 ML VIAL IVPUSH PRN ×2 (12:53→15:13)
[2022-04-01] MEDS ORDERED: ACETAMINOPHEN INJECTION 100 ML IVPB ONE (12:59)
[2022-04-01] MEDS ORDERED: DEXMEDETOMIDINE HCL 200 MCG/2 ML IVPB ONE (12:59)
[2022-04-01] MEDS ORDERED: SUCCINYLCHOLINE CHLORIDE 200 MG/10 ML SYRINGE ONE (13:12)
[2022-04-01] MEDS ORDERED: PROPOFOL 40 ML ONE (13:12)
[2022-04-01] MEDS ORDERED: KETAMINE HCL 200 MG/20 ML VIAL ONE (13:13)
[2022-04-01] MEDS ORDERED: BUPIVACAINE HCL 100 ML ONE (13:13)
[2022-04-01] MEDS ORDERED: LIDOCAINE HCL 1%, 10 MG/ML (20ML VIAL) ONE (13:13)
[2022-04-01] MEDS ORDERED: MIDAZOLAM HCL 2 MG/2 ML SINGLE DOSE VIAL ONE (13:13)
[2022-04-01] MEDS ORDERED: metoPROLOL SUCCINATE 25 MG TAB.SR.24H (FP) PO ONE (15:13)
[2022-04-01] MEDS ORDERED: SODIUM CHLORIDE 1,000 ML IV SCH ×2 (15:13→18:21)
[2022-04-01] MEDS: oxyCODONE HCL 5 MG TABLET PO PRN (18:56)
[2022-04-01] MEDS: DOCUSATE SODIUM 100 MG CAPSULE (FP) PO SCH (21:19)
[2022-04-01] MEDS: ATORVASTATIN CA 10 MG TABLET (FP) PO SCH (21:19)
[2022-04-01] MEDS ORDERED: IBUPROFEN 600 MG TABLET (FP) PO PRN (23:00)
[2022-04-01] MEDS ORDERED: ACETAMINOPHEN 500 MG TABLET (FP) PO PRN (23:00)
[2022-04-02] MEDS: PIPERACILLIN/TAZOB 4.5 GM 4.5 GM in DEXTROSE 5%-WATER 100 ML IVPB SCH ×3 (01:28→18:07)
[2022-04-02] MEDS: oxyCODONE HCL 5 MG TABLET PO PRN ×4 (01:28→21:44)
[2022-04-02] MEDS: DOCUSATE SODIUM 100 MG CAPSULE (FP) PO SCH ×3 (06:03→21:42)
[2022-04-02] MEDS: GABAPENTIN 300 MG CAPSULE PO SCH ×3 (06:03→21:43)
[2022-04-02 09:30] LABS: BASO % 0.7 % (0-2.0); EOS % 1.6 % (0-4.5); HEMATOCRIT 27.3 % (35.4-49); HEMOGLOBIN 9.2 GM/dL (11.7-16.9); MCH 31.6 pg (25.7-33.7); MCHC 33.9 g/dl (32.0-35.9); MEAN CELL VOLUME 93.3 fl (80-96); MEAN PLT VOLUME 7.7 fl (7.5-11.1); MONO % 5.5 % (3.8-10.2); NEUT % 86.2 % (42.8-82.8); PLATELET COUNT 393 10^3/uL (134-434); RBC 2.92 M/mm3 (4.00-5.60); RDW 14.9 % (11.9-15.9); WHITE BLOOD COUNT 8.9 K/mm3 (4.0-10.0)
[2022-04-02] MEDS: metoPROLOL SUCCINATE 25 MG TAB.SR.24H (FP) PO SCH (09:48)
[2022-04-02] MEDS: DULoxetine HCL 30 MG CAPSULE.DR PO SCH (09:48)
[2022-04-02] MEDS: VANCOMYCIN/WATER 1250 MG 1,250 MG/250 ML BAG IVPB SCH ×2 (09:48→21:41)
[2022-04-02] MEDS: BACITRACIN 15 GM TUBE TOPICAL OINTMENT TP SCH ×2 (09:49→21:45)
[2022-04-02 09:52] LABS: CALCIUM 7.4 mg/dL (8.5-10.1)
[2022-04-02 09:53] LABS: ALBUMIN 1.6 g/dl (3.4-5.0); BLOOD UREA NITROGEN 12.1 mg/dL (7-18)
[2022-04-02 09:56] LABS: CREATININE 0.5 mg/dL (0.55-1.3)
[2022-04-02 09:57] LABS: BILIRUBIN,TOTAL 0.6 mg/dL (0.2-1); TOT PROT 4.7 g/dl (6.4-8.2)
[2022-04-02] MEDS ORDERED: ENOXAPARIN NA (PORCINE) 40 MG/0.4 ML DISP.SYRIN SQ SCH (10:00)
[2022-04-02] MEDS ORDERED: metoPROLOL SUCCINATE 25 MG TAB.SR.24H (FP) PO SCH (10:00)
[2022-04-02] MEDS: SODIUM CHLORIDE 1,000 ML IV SCH (13:00)
[2022-04-02] MEDS: APIXABAN 5 MG TABLET PO SCH ×2 (18:05→21:43)
[2022-04-02] MEDS: ATORVASTATIN CA 10 MG TABLET (FP) PO SCH (21:44)
[2022-04-03] MEDS: PIPERACILLIN/TAZOB 4.5 GM 4.5 GM in DEXTROSE 5%-WATER 100 ML IVPB SCH ×2 (01:57→09:22)
[2022-04-03] MEDS: DOCUSATE SODIUM 100 MG CAPSULE (FP) PO SCH ×3 (05:03→21:07)
[2022-04-03] MEDS: GABAPENTIN 300 MG CAPSULE PO SCH ×3 (05:03→21:07)
[2022-04-03] MEDS: oxyCODONE HCL 5 MG TABLET PO PRN ×4 (05:03→20:12)
[2022-04-03] MEDS: BACITRACIN 15 GM TUBE TOPICAL OINTMENT TP SCH ×2 (09:22→21:07)
[2022-04-03] MEDS: metoPROLOL SUCCINATE 25 MG TAB.SR.24H (FP) PO SCH (09:22)
[2022-04-03] MEDS: DULoxetine HCL 30 MG CAPSULE.DR PO SCH (09:22)
[2022-04-03] MEDS: APIXABAN 5 MG TABLET PO SCH ×2 (09:22→21:07)
[2022-04-03] MEDS: VANCOMYCIN/WATER 1250 MG 1,250 MG/250 ML BAG IVPB SCH (09:23)
[2022-04-03] MEDS: POLYETHYLENE GLYCOL (HEALTHYLAX) 3350 17 GM PACKET PO SCH (14:59)
[2022-04-03] MEDS: SODIUM CHLORIDE 1,000 ML IV SCH (15:46)
[2022-04-03] MEDS: CEFAZOLIN SODIUM 2 GM in DEXTROSE 5%-WATER 100 ML IVPB SCH (17:07)
[2022-04-03] MEDS: ATORVASTATIN CA 10 MG TABLET (FP) PO SCH (21:07)
[2022-04-04] MEDS: CEFAZOLIN SODIUM 2 GM in DEXTROSE 5%-WATER 100 ML IVPB SCH ×3 (01:13→17:20)
[2022-04-04] MEDS: oxyCODONE HCL 5 MG TABLET PO PRN ×2 (01:26→09:38)
[2022-04-04] MEDS: DOCUSATE SODIUM 100 MG CAPSULE (FP) PO SCH ×3 (06:05→21:23)
[2022-04-04] MEDS: GABAPENTIN 300 MG CAPSULE PO SCH ×3 (06:05→21:23)
[2022-04-04 08:29] LABS: BASO % 0.8 % (0-2.0); EOS % 0.7 % (0-4.5); HEMATOCRIT 29.6 % (35.4-49); HEMOGLOBIN 10.3 GM/dL (11.7-16.9); LYMPH % 9.4 % (8-40); MCH 31.1 pg (25.7-33.7); MCHC 34.6 g/dl (32.0-35.9); MEAN CELL VOLUME 89.9 fl (80-96); MEAN PLT VOLUME 7.8 fl (7.5-11.1); MONO % 6.5 % (3.8-10.2); NEUT % 82.6 % (42.8-82.8); PLATELET COUNT 498 10^3/uL (134-434); RBC 3.29 M/mm3 (4.00-5.60); RDW 14.7 % (11.9-15.9); WHITE BLOOD COUNT 10.3 K/mm3 (4.0-10.0)
[2022-04-04 08:57] LABS: ALBUMIN 1.8 g/dl (3.4-5.0)
[2022-04-04 09:01] LABS: CREATININE 0.4 mg/dL (0.55-1.3)
[2022-04-04 09:02] LABS: BILIRUBIN,TOTAL 0.6 mg/dL (0.2-1); TOT PROT 5.4 g/dl (6.4-8.2)
[2022-04-04] MEDS: POLYETHYLENE GLYCOL (HEALTHYLAX) 3350 17 GM PACKET PO SCH (09:33)
[2022-04-04] MEDS: APIXABAN 5 MG TABLET PO SCH ×2 (09:33→21:23)
[2022-04-04] MEDS: DULoxetine HCL 30 MG CAPSULE.DR PO SCH (09:33)
[2022-04-04] MEDS: metoPROLOL SUCCINATE 25 MG TAB.SR.24H (FP) PO SCH (09:33)
[2022-04-04] MEDS: BACITRACIN 15 GM TUBE TOPICAL OINTMENT TP SCH ×2 (09:34→21:44)
[2022-04-04] MEDS: LOSARTAN POTASSIUM 50 MG TABLET PO SCH (17:20)
[2022-04-04] MEDS ORDERED: MINERAL OIL ENEMA 133 ML ENEMA RC ONE (21:04)
[2022-04-04] MEDS: ATORVASTATIN CA 10 MG TABLET (FP) PO SCH (21:23)
[2022-04-04] MEDS ORDERED: GLYCERIN 1 RECTAL SUPPOSITORY, ADULT RC PRN (23:10)
[2022-04-05] MEDS ORDERED: MELATONIN 5 MG TABLETS PO ONE ×2 (00:40→21:36)
[2022-04-05] MEDS: CEFAZOLIN SODIUM 2 GM in DEXTROSE 5%-WATER 100 ML IVPB SCH ×3 (01:39→18:28)
[2022-04-05] MEDS: DOCUSATE SODIUM 100 MG CAPSULE (FP) PO SCH ×3 (05:22→21:28)
[2022-04-05] MEDS: GABAPENTIN 300 MG CAPSULE PO SCH ×3 (05:23→21:29)
[2022-04-05] MEDS: oxyCODONE HCL 5 MG TABLET PO PRN ×2 (06:14→14:54)
[2022-04-05] MEDS ORDERED: SODIUM CHLORIDE 1,000 ML IV SCH (07:30)
[2022-04-05 09:05] LABS: HEMATOCRIT 32.8 % (35.4-49); MCH 30.7 pg (25.7-33.7); MCHC 33.5 g/dl (32.0-35.9); MEAN CELL VOLUME 91.6 fl (80-96); MEAN PLT VOLUME 7.9 fl (7.5-11.1); PLATELET COUNT 551 10^3/uL (134-434); RBC 3.58 M/mm3 (4.00-5.60); RDW 14.5 % (11.9-15.9)
[2022-04-05 09:37] LABS: CALCIUM 8.3 mg/dL (8.5-10.1)
[2022-04-05 09:38] LABS: BLOOD UREA NITROGEN 7.4 mg/dL (7-18)
[2022-04-05 09:41] LABS: CREATININE 0.4 mg/dL (0.55-1.3)
[2022-04-05] MEDS: LOSARTAN POTASSIUM 50 MG TABLET PO SCH (10:36)
[2022-04-05] MEDS: TAMSULOSIN HCL 0.4 MG CAP PO SCH (10:36)
[2022-04-05] MEDS: DULoxetine HCL 30 MG CAPSULE.DR PO SCH (10:36)
[2022-04-05] MEDS: metoPROLOL SUCCINATE 25 MG TAB.SR.24H (FP) PO SCH (10:36)
[2022-04-05] MEDS: amLODIPine BESYLATE 5 MG TABLET (FP) PO SCH (10:37)
[2022-04-05] MEDS: APIXABAN 5 MG TABLET PO SCH ×2 (10:37→21:28)
[2022-04-05] MEDS: POLYETHYLENE GLYCOL (HEALTHYLAX) 3350 17 GM PACKET PO SCH (10:37)
[2022-04-05] MEDS: BACITRACIN 15 GM TUBE TOPICAL OINTMENT TP SCH ×2 (11:30→21:29)
[2022-04-05] MEDS ORDERED: POTASSIUM CHLORIDE TABS 20 MEQ TABLET.ER (FP) PO ONE (14:10)
[2022-04-05] MEDS: SODIUM CHLORIDE 1 GM TABLET PO SCH ×3 (16:45→21:28)
[2022-04-05] MEDS ORDERED: ALPRAZolam 1 MG TABLET PO ONE (17:08)
[2022-04-05] MEDS: ATORVASTATIN CA 10 MG TABLET (FP) PO SCH (21:28)
[2022-04-06] MEDS ORDERED: CEFAZOLIN SODIUM 2 GM VIAL ONE (01:06)
[2022-04-06] MEDS: CEFAZOLIN SODIUM 2 GM in DEXTROSE 5%-WATER 100 ML IVPB SCH ×3 (01:07→17:50)
[2022-04-06] MEDS: DOCUSATE SODIUM 100 MG CAPSULE (FP) PO SCH ×3 (06:00→21:30)
[2022-04-06] MEDS: GABAPENTIN 300 MG CAPSULE PO SCH ×3 (06:00→21:31)
[2022-04-06 07:49] LABS: BASO % 1.3 % (0-2.0); EOS % 1.2 % (0-4.5); HEMATOCRIT 31.7 % (35.4-49); HEMOGLOBIN 10.6 GM/dL (11.7-16.9); LYMPH % 11.3 % (8-40); MCH 30.9 pg (25.7-33.7); MCHC 33.4 g/dl (32.0-35.9); MEAN CELL VOLUME 92.4 fl (80-96); MEAN PLT VOLUME 7.5 fl (7.5-11.1); MONO % 8.2 % (3.8-10.2); PLATELET COUNT 567 10^3/uL (134-434); RBC 3.43 M/mm3 (4.00-5.60); RDW 14.5 % (11.9-15.9); WHITE BLOOD COUNT 7.6 K/mm3 (4.0-10.0)
[2022-04-06 08:13] LABS: ALBUMIN 2.1 g/dl (3.4-5.0)
[2022-04-06 08:14] LABS: BILIRUBIN,TOTAL 0.5 mg/dL (0.2-1); CALCIUM 8.6 mg/dL (8.5-10.1); TOT PROT 5.8 g/dl (6.4-8.2)
[2022-04-06 08:16] LABS: CREATININE 0.5 mg/dL (0.55-1.3)
[2022-04-06] MEDS: metoPROLOL SUCCINATE 25 MG TAB.SR.24H (FP) PO SCH (09:06)
[2022-04-06] MEDS: DULoxetine HCL 30 MG CAPSULE.DR PO SCH (09:06)
[2022-04-06] MEDS: APIXABAN 5 MG TABLET PO SCH ×2 (09:07→21:31)
[2022-04-06] MEDS: TAMSULOSIN HCL 0.4 MG CAP PO SCH (09:07)
[2022-04-06] MEDS: amLODIPine BESYLATE 5 MG TABLET (FP) PO SCH (09:07)
[2022-04-06] MEDS: LOSARTAN POTASSIUM 50 MG TABLET PO SCH (09:07)
[2022-04-06] MEDS: BACITRACIN 15 GM TUBE TOPICAL OINTMENT TP SCH ×2 (10:11→21:30)
[2022-04-06] MEDS: SODIUM CHLORIDE 1 GM TABLET PO SCH (13:27)
[2022-04-06] MEDS ORDERED: morphine SULFATE 4 MG/ML VIAL IVPUSH PRN (15:19)
[2022-04-06] MEDS: ATORVASTATIN CA 10 MG TABLET (FP) PO SCH (21:31)
[2022-04-06] MEDS ORDERED: MELATONIN 5 MG TABLETS PO ONE (22:42)
[2022-04-07] MEDS: CEFAZOLIN SODIUM 2 GM in DEXTROSE 5%-WATER 100 ML IVPB SCH ×3 (01:44→17:55)
[2022-04-07] MEDS: GABAPENTIN 300 MG CAPSULE PO SCH ×3 (06:17→21:01)
[2022-04-07] MEDS: DOCUSATE SODIUM 100 MG CAPSULE (FP) PO SCH ×3 (06:17→21:01)
[2022-04-07 09:01] LABS: HEMATOCRIT 29.6 % (35.4-49); HEMOGLOBIN 10.4 GM/dL (11.7-16.9); MCH 32.1 pg (25.7-33.7); MEAN CELL VOLUME 91.6 fl (80-96); MEAN PLT VOLUME 7.4 fl (7.5-11.1); PLATELET COUNT 466 10^3/uL (134-434); RBC 3.24 M/mm3 (4.00-5.60); RDW 14.3 % (11.9-15.9); WHITE BLOOD COUNT 6.7 K/mm3 (4.0-10.0)
[2022-04-07 09:26] LABS: CALCIUM 8.2 mg/dL (8.5-10.1)
[2022-04-07 09:27] LABS: ALBUMIN 2.2 g/dl (3.4-5.0); BLOOD UREA NITROGEN 7.9 mg/dL (7-18); MAGNESIUM 1.9 mg/dL (1.8-2.4)
[2022-04-07 09:30] LABS: CREATININE 0.5 mg/dL (0.55-1.3); PHOSPHOROUS 3.5 mg/dL (2.5-4.9)
[2022-04-07 09:31] LABS: BILIRUBIN,TOTAL 0.6 mg/dL (0.2-1); TOT PROT 6.1 g/dl (6.4-8.2)
[2022-04-07] MEDS: metoPROLOL SUCCINATE 25 MG TAB.SR.24H (FP) PO SCH (09:40)
[2022-04-07] MEDS: DULoxetine HCL 30 MG CAPSULE.DR PO SCH (09:40)
[2022-04-07] MEDS: APIXABAN 5 MG TABLET PO SCH ×2 (09:40→21:01)
[2022-04-07] MEDS: LOSARTAN POTASSIUM 50 MG TABLET PO SCH (09:40)
[2022-04-07] MEDS: TAMSULOSIN HCL 0.4 MG CAP PO SCH (09:40)
[2022-04-07] MEDS: amLODIPine BESYLATE 5 MG TABLET (FP) PO SCH (09:40)
[2022-04-07 09:43] LABS: ERYTHROCYTE SEDIMENTATION RATE 91 mm/hr (0-20)
[2022-04-07] MEDS: BACITRACIN 15 GM TUBE TOPICAL OINTMENT TP SCH ×2 (10:05→21:27)
[2022-04-07] MEDS ORDERED: POTASSIUM CHLORIDE TABS 20 MEQ TABLET.ER (FP) PO ONE (10:15)
[2022-04-07] MEDS: ATORVASTATIN CA 10 MG TABLET (FP) PO SCH (21:01)
[2022-04-08] MEDS: MELATONIN 5 MG TABLETS PO PRN ×2 (00:21→22:53)
[2022-04-08] MEDS: CEFAZOLIN SODIUM 2 GM in DEXTROSE 5%-WATER 100 ML IVPB SCH ×3 (01:52→17:39)
[2022-04-08] MEDS: GABAPENTIN 300 MG CAPSULE PO SCH ×3 (05:56→21:02)
[2022-04-08] MEDS: DOCUSATE SODIUM 100 MG CAPSULE (FP) PO SCH ×3 (05:56→21:02)
[2022-04-08] MEDS: TAMSULOSIN HCL 0.4 MG CAP PO SCH (08:30)
[2022-04-08 08:31] LABS: HEMATOCRIT 30.4 % (35.4-49); HEMOGLOBIN 10.6 GM/dL (11.7-16.9); MCH 31.8 pg (25.7-33.7); MCHC 34.9 g/dl (32.0-35.9); MEAN CELL VOLUME 91.2 fl (80-96); PLATELET COUNT 422 10^3/uL (134-434); RBC 3.33 M/mm3 (4.00-5.60); RDW 14.6 % (11.9-15.9); WHITE BLOOD COUNT 6.7 K/mm3 (4.0-10.0)
[2022-04-08 08:50] LABS: CALCIUM 8.1 mg/dL (8.5-10.1)
[2022-04-08 08:51] LABS: ALBUMIN 2.3 g/dl (3.4-5.0); BLOOD UREA NITROGEN 7.4 mg/dL (7-18)
[2022-04-08 08:54] LABS: CREATININE 0.5 mg/dL (0.55-1.3)
[2022-04-08 08:56] LABS: BILIRUBIN,TOTAL 0.7 mg/dL (0.2-1); TOT PROT 6.4 g/dl (6.4-8.2)
[2022-04-08] MEDS: metoPROLOL SUCCINATE 25 MG TAB.SR.24H (FP) PO SCH (09:02)
[2022-04-08] MEDS: DULoxetine HCL 30 MG CAPSULE.DR PO SCH (09:02)
[2022-04-08] MEDS: LOSARTAN POTASSIUM 50 MG TABLET PO SCH (09:02)
[2022-04-08] MEDS: APIXABAN 5 MG TABLET PO SCH ×2 (09:02→21:02)
[2022-04-08] MEDS: amLODIPine BESYLATE 5 MG TABLET (FP) PO SCH (09:02)
[2022-04-08] MEDS: POLYETHYLENE GLYCOL (HEALTHYLAX) 3350 17 GM PACKET PO SCH (09:10)
[2022-04-08] MEDS ORDERED: POTASSIUM CHLORIDE TABS 20 MEQ TABLET.ER (FP) PO ONE (12:53)
[2022-04-08] MEDS: BACITRACIN 15 GM TUBE TOPICAL OINTMENT TP SCH ×2 (13:38→21:02)
[2022-04-08] MEDS ORDERED: POLYETHYLENE GLYCOL (HEALTHYLAX) 3350 17 GM PACKET PO SCH (20:15)
[2022-04-08] MEDS: ATORVASTATIN CA 10 MG TABLET (FP) PO SCH (21:02)
[2022-04-09] MEDS: CEFAZOLIN SODIUM 2 GM in DEXTROSE 5%-WATER 100 ML IVPB SCH ×2 (01:45→10:35)
[2022-04-09] MEDS: DOCUSATE SODIUM 100 MG CAPSULE (FP) PO SCH ×2 (05:43→16:08)
[2022-04-09] MEDS: GABAPENTIN 300 MG CAPSULE PO SCH ×2 (05:43→16:08)
[2022-04-09 06:11] VITALS: RESP 18
[2022-04-09] MEDS: LOSARTAN POTASSIUM 50 MG TABLET PO SCH (10:35)
[2022-04-09] MEDS: TAMSULOSIN HCL 0.4 MG CAP PO SCH (10:35)
[2022-04-09] MEDS: BACITRACIN 15 GM TUBE TOPICAL OINTMENT TP SCH (10:35)
[2022-04-09] MEDS: amLODIPine BESYLATE 5 MG TABLET (FP) PO SCH (10:36)
[2022-04-09] MEDS: APIXABAN 5 MG TABLET PO SCH (10:36)
[2022-04-09] MEDS: metoPROLOL SUCCINATE 25 MG TAB.SR.24H (FP) PO SCH (10:36)
[2022-04-09] MEDS: POLYETHYLENE GLYCOL (HEALTHYLAX) 3350 17 GM PACKET PO SCH (10:36)
[2022-04-09] MEDS: DULoxetine HCL 30 MG CAPSULE.DR PO SCH (10:36)
[2022-04-09 12:30] LABS: HEMATOCRIT 30.7 % (35.4-49); HEMOGLOBIN 10.7 GM/dL (11.7-16.9); MCH 32.2 pg (25.7-33.7); MEAN CELL VOLUME 92.1 fl (80-96); PLATELET COUNT 375 10^3/uL (134-434); RBC 3.33 M/mm3 (4.00-5.60); RDW 14.7 % (11.9-15.9); WHITE BLOOD COUNT 7.4 K/mm3 (4.0-10.0)
[2022-04-09 13:15] LABS: ALBUMIN 2.5 g/dl (3.4-5.0); BILIRUBIN,TOTAL 0.5 mg/dL (0.2-1); CALCIUM 8.3 mg/dL (8.5-10.1); CREATININE 0.6 mg/dL (0.55-1.3); TOT PROT 6.8 g/dl (6.4-8.2)
[2022-04-09 14:06] VITALS: BP 122/76; PULSE 67; TEMP 98.2
== END 2022-04-09 17:45 | disposition home or self-care (01) | DRG 872 ==
LOC: JER 17:00 → JERBED 22:23 → J4S 03-31 18:05
PROVIDERS: ADMIT Internal Medicine; ATTEND Internal Medicine
PROC: 0X950ZX Drainage of Left Axilla, Open Approach, Diagnostic (ICD-10-PCS; principal; 2022-04-01 13:00)
PROC: 05HY33Z Insertion of Infusion Device into Upper Vein, Percutaneous Approach (ICD-10-PCS; 2022-04-09)
PROC: B54MZZA Ultrasonography of Right Upper Extremity Veins, Guidance (ICD-10-PCS; 2022-04-09)
DX: A41.2 Sepsis due to unspecified staphylococcus (principal); L02.412 Cutaneous abscess of left axilla; E87.1 Hypo-osmolality and hyponatremia; N17.9 Acute kidney failure, unspecified; M86.18 Other acute osteomyelitis, other site; I10 Essential (primary) hypertension; E78.5 Hyperlipidemia, unspecified; N40.0 Benign prostatic hyperplasia without lower urinary tract symptoms; I48.0 Paroxysmal atrial fibrillation; A49.01 Methicillin susceptible Staphylococcus aureus infection, unspecified site; E87.6 Hypokalemia; E66.9 Obesity, unspecified; Z68.31 Body mass index [BMI] 31.0-31.9, adult
CPT/HCPCS: 0241U-QW; 36415; 36569; 71045-TC-FY; 71275-TC; 76775-TC; 80048; 80053; 81003; 82436; 82962; 83036; 83605; 83735; 83880; 83930; 83935; 84100; 84133; 84300; 84443; 84484; 85025; 85027; 85610; 85651; 85730; 86140; 86850; 86900; 86901; 87040; 87070; 87081; 87086; 87186; 87205; 88304-TC; 88311-TC; 93005; 93010; 93306-TC; 93970-TC; 93971; 94010; 94760; 97116-GP; 97161-GP; 99285-25; G0480; Q9967

== ENCOUNTER 2022-04-28 15:39 | Inpatient (IN) | payer OTHER, MEDICARE ==
[2022-04-28 15:55] VITALS: BMI 30.4
[2022-04-28] MEDS ORDERED: SODIUM CHLORIDE 0.9% 500 ML INFUS.BAG IV ONE (17:58)
[2022-04-28 18:25] LABS: BASO % 0.6 % (0-2.0); EOS % 2.8 % (0-4.5); HEMATOCRIT 25.7 % (35.4-49); HEMOGLOBIN 8.5 GM/dL (11.7-16.9); LYMPH % 18.1 % (8-40); MCH 29.5 pg (25.7-33.7); MCHC 33.1 g/dl (32.0-35.9); MEAN CELL VOLUME 89.1 fl (80-96); MEAN PLT VOLUME 7.6 fl (7.5-11.1); NEUT % 69.5 % (42.8-82.8); PLATELET COUNT 297 10^3/uL (134-434); RBC 2.89 M/mm3 (4.00-5.60); RDW 14.9 % (11.9-15.9); WHITE BLOOD COUNT 6.7 K/mm3 (4.0-10.0)
[2022-04-28 18:39] LABS: INR 1.28 (0.83-1.09); PROTHROMBIN TIME (PATIENT) 14.7 SEC (9.7-13.0)
[2022-04-28 18:41] LABS: ACTIVATED PTT 37.8 SECONDS (25.2-36.5)
[2022-04-28 18:54] LABS: CALCIUM 8.6 mg/dL (8.5-10.1)
[2022-04-28 18:55] LABS: ALBUMIN 2.6 g/dl (3.4-5.0); BLOOD UREA NITROGEN 30.5 mg/dL (7-18)
[2022-04-28 18:58] LABS: CREATININE 0.5 mg/dL (0.55-1.3)
[2022-04-28 19:00] LABS: BILIRUBIN,TOTAL 0.2 mg/dL (0.2-1); TOT PROT 6.6 g/dl (6.4-8.2)
[2022-04-28] MEDS ORDERED: ACETAMINOPHEN 325 MG TABLET (FP) PO PRN (23:46)
[2022-04-29] MEDS ORDERED: CEFAZOLIN SODIUM 2 GM VIAL IVPB SCH (00:01)
[2022-04-29] MEDS: CEFAZOLIN SODIUM 2 GM in SODIUM CHLORIDE 100 ML IVPB SCH ×3 (00:37→17:22)
[2022-04-29 06:44] LABS: BASO % 1.1 % (0-2.0); EOS % 4.2 % (0-4.5); HEMATOCRIT 31.7 % (35.4-49); HEMOGLOBIN 10.3 GM/dL (11.7-16.9); LYMPH % 21.6 % (8-40); MCH 28.8 pg (25.7-33.7); MCHC 32.5 g/dl (32.0-35.9); MEAN CELL VOLUME 88.4 fl (80-96); MEAN PLT VOLUME 7.8 fl (7.5-11.1); MONO % 9.7 % (3.8-10.2); NEUT % 63.4 % (42.8-82.8); PLATELET COUNT 293 10^3/uL (134-434); RBC 3.59 M/mm3 (4.00-5.60); RDW 14.9 % (11.9-15.9); WHITE BLOOD COUNT 6.2 K/mm3 (4.0-10.0)
[2022-04-29 07:14] LABS: ALBUMIN 2.6 g/dl (3.4-5.0); BLOOD UREA NITROGEN 17.4 mg/dL (7-18); CALCIUM 8.5 mg/dL (8.5-10.1)
[2022-04-29 07:17] LABS: CREATININE 0.4 mg/dL (0.55-1.3)
[2022-04-29 07:19] LABS: BILIRUBIN,TOTAL 0.5 mg/dL (0.2-1); TOT PROT 6.4 g/dl (6.4-8.2)
[2022-04-29] MEDS: amLODIPine BESYLATE 5 MG TABLET (FP) PO SCH (10:01)
[2022-04-29] MEDS: LOSARTAN POTASSIUM 25 MG TABLET PO SCH (10:01)
[2022-04-29] MEDS: GABAPENTIN 300 MG CAPSULE PO SCH (10:01)
[2022-04-29] MEDS: DULoxetine HCL 30 MG CAPSULE.DR PO SCH (10:02)
[2022-04-29] MEDS ORDERED: REMDESIVIR 200 MG in SODIUM CHLORIDE 250 ML IVPB ONE (14:25)
[2022-04-29] MEDS: POLYETHYLENE GLYCOL (HEALTHYLAX) 3350 17 GM PACKET PO SCH ×2 (15:11→22:44)
[2022-04-29] MEDS ORDERED: TOLTERODINE TARTRATE 2 MG TABLET PO SCH (22:00)
[2022-04-29] MEDS: TAMSULOSIN HCL 0.4 MG CAP PO SCH (22:44)
[2022-04-29] MEDS: ATORVASTATIN CA 10 MG TABLET (FP) PO SCH (22:46)
[2022-04-29] MEDS: metoPROLOL SUCCINATE 25 MG TAB.SR.24H (FP) PO SCH (22:46)
[2022-04-29] MEDS: TOLTERODINE TARTRATE 2 MG TABLET PO SCH (22:46)
[2022-04-29] MEDS ORDERED: metoPROLOL SUCCINATE 25 MG TAB.SR.24H (FP) PO SCH (23:45)
[2022-04-29] MEDS ORDERED: APIXABAN 5 MG TABLET PO SCH (23:45)
[2022-04-29] MEDS ORDERED: GABAPENTIN 300 MG CAPSULE PO SCH (23:45)
[2022-04-29] MEDS ORDERED: TAMSULOSIN HCL 0.4 MG CAP PO SCH (23:45)
[2022-04-30] MEDS: GABAPENTIN 300 MG CAPSULE PO SCH ×3 (00:36→21:42)
[2022-04-30] MEDS: CEFAZOLIN SODIUM 2 GM in SODIUM CHLORIDE 100 ML IVPB SCH ×3 (01:39→17:30)
[2022-04-30] MEDS: POLYETHYLENE GLYCOL (HEALTHYLAX) 3350 17 GM PACKET PO SCH ×3 (05:14→21:42)
[2022-04-30] MEDS: DULoxetine HCL 30 MG CAPSULE.DR PO SCH (09:24)
[2022-04-30] MEDS: LOSARTAN POTASSIUM 25 MG TABLET PO SCH (09:24)
[2022-04-30] MEDS: amLODIPine BESYLATE 5 MG TABLET (FP) PO SCH (09:24)
[2022-04-30] MEDS ORDERED: [UNRECOGNIZED DRUG - OTHER] IVPUSH PRN (14:25)
[2022-04-30] MEDS ORDERED: REMDESIVIR 100 MG in SODIUM CHLORIDE 250 ML IVPB SCH (16:00)
[2022-04-30] MEDS: ATORVASTATIN CA 10 MG TABLET (FP) PO SCH (21:42)
[2022-04-30] MEDS: TAMSULOSIN HCL 0.4 MG CAP PO SCH (21:43)
[2022-04-30] MEDS: metoPROLOL SUCCINATE 25 MG TAB.SR.24H (FP) PO SCH (21:43)
[2022-04-30] MEDS: TOLTERODINE TARTRATE 2 MG TABLET PO SCH (21:43)
[2022-05-01] MEDS: CEFAZOLIN SODIUM 2 GM in SODIUM CHLORIDE 100 ML IVPB SCH ×2 (01:02→08:48)
[2022-05-01 06:11] VITALS: RESP 18
[2022-05-01] MEDS: POLYETHYLENE GLYCOL (HEALTHYLAX) 3350 17 GM PACKET PO SCH ×3 (06:16→14:39)
[2022-05-01 06:49] LABS: ALBUMIN 2.9 g/dl (3.4-5.0); BLOOD UREA NITROGEN 10.2 mg/dL (7-18); CALCIUM 8.7 mg/dL (8.5-10.1)
[2022-05-01 06:53] LABS: CREATININE 0.5 mg/dL (0.55-1.3)
[2022-05-01 06:54] LABS: BILIRUBIN,TOTAL 0.4 mg/dL (0.2-1); TOT PROT 7.3 g/dl (6.4-8.2)
[2022-05-01 07:58] LABS: BASO % 0.6 % (0-2.0); EOS % 3.3 % (0-4.5); HEMATOCRIT 35.7 % (35.4-49); HEMOGLOBIN 11.6 GM/dL (11.7-16.9); LYMPH % 19.7 % (8-40); MCH 28.7 pg (25.7-33.7); MCHC 32.5 g/dl (32.0-35.9); MEAN CELL VOLUME 88.4 fl (80-96); MONO % 7.7 % (3.8-10.2); NEUT % 68.7 % (42.8-82.8); PLATELET COUNT 340 10^3/uL (134-434); RBC 4.04 M/mm3 (4.00-5.60); RDW 14.8 % (11.9-15.9); WHITE BLOOD COUNT 7.1 K/mm3 (4.0-10.0)
[2022-05-01 09:00] VITALS: TEMP 98.4
[2022-05-01] MEDS: amLODIPine BESYLATE 5 MG TABLET (FP) PO SCH (09:48)
[2022-05-01] MEDS: GABAPENTIN 300 MG CAPSULE PO SCH (09:48)
[2022-05-01] MEDS: LOSARTAN POTASSIUM 25 MG TABLET PO SCH (09:48)
[2022-05-01] MEDS: DULoxetine HCL 30 MG CAPSULE.DR PO SCH (09:49)
[2022-05-01] MEDS ORDERED: REMDESIVIR 100 MG in SODIUM CHLORIDE 250 ML IVPB SCH ×2 (10:00→13:00)
[2022-05-01] MEDS ORDERED: PANTOPRAZOLE 40 MG TABLET PO SCH (10:00)
[2022-05-01 14:32] VITALS: BP 148/78; PULSE 92
[2022-05-02] MEDS ORDERED: REMDESIVIR 100 MG in SODIUM CHLORIDE 250 ML IVPB SCH (10:00)
== END 2022-05-01 18:23 | disposition home health service (06) | DRG 377 ==
LOC: JER 15:39 → JERBED 18:48 → J4S 23:22 → OBSVTOIN 23:48
PROVIDERS: ADMIT Internal Medicine; ATTEND Internal Medicine
PROC: 30233N1 Transfusion of Nonautologous Red Blood Cells into Peripheral Vein, Percutaneous Approach (ICD-10-PCS; principal; 2022-04-28)
PROC: XW033E5 Introduction of Remdesivir Anti-infective into Peripheral Vein, Percutaneous Approach, New Technology Group 5 (ICD-10-PCS; 2022-04-28)
DX: K92.2 Gastrointestinal hemorrhage, unspecified (principal); U07.1 COVID-19; M86.9 Osteomyelitis, unspecified; D50.0 Iron deficiency anemia secondary to blood loss (chronic); T45.515A Adverse effect of anticoagulants, initial encounter; Y92.89 Other specified places as the place of occurrence of the external cause; I10 Essential (primary) hypertension; E78.5 Hyperlipidemia, unspecified; N40.0 Benign prostatic hyperplasia without lower urinary tract symptoms; I48.0 Paroxysmal atrial fibrillation; I25.10 Atherosclerotic heart disease of native coronary artery without angina pectoris
CPT/HCPCS: 36415; 36430; 71046-TC-FY; 80053; 82272; 84443; 84484; 85025; 85379; 85610; 85651; 85730; 86140; 86850; 86900; 86901; 86922; 93005; 93010; 99291; C9399; C9803-CS; G0378; P9058; U0003; U0005

== ENCOUNTER 2022-05-26 04:45 | Day surgery (SDC) | payer OTHER, MEDICARE ==
[2022-05-25 09:28] VITALS: BMI 31.1
[2022-05-26 09:45] VITALS: TEMP 98
[2022-05-26 10:47] VITALS: BP 124/62; PULSE 88; RESP 24
== END 2022-05-26 11:22 | disposition home or self-care (01) ==
LOC: JASU-ENDO 04:45
PROVIDERS: ATTEND Internal Medicine Gastroenterology
PROC: 0DBL8ZX Excision of Transverse Colon, Via Natural or Artificial Opening Endoscopic, Diagnostic (ICD-10-PCS; 2022-05-26)
PROC: 0DB98ZX Excision of Duodenum, Via Natural or Artificial Opening Endoscopic, Diagnostic (ICD-10-PCS; 2022-05-26)
PROC: 0DB78ZX Excision of Stomach, Pylorus, Via Natural or Artificial Opening Endoscopic, Diagnostic (ICD-10-PCS; 2022-05-26)
PROC: 0DBC8ZX Excision of Ileocecal Valve, Via Natural or Artificial Opening Endoscopic, Diagnostic (ICD-10-PCS; principal; 2022-05-26 09:00)
DX: Z12.11 Encounter for screening for malignant neoplasm of colon (principal); D12.3 Benign neoplasm of transverse colon; D17.5 Benign lipomatous neoplasm of intra-abdominal organs; K57.30 Diverticulosis of large intestine without perforation or abscess without bleeding; K59.89 Other specified functional intestinal disorders; K29.50 Unspecified chronic gastritis without bleeding; D50.9 Iron deficiency anemia, unspecified; Z86.010 Personal history of colon polyps
CPT/HCPCS: 88305-TC; 88342-TC

== ENCOUNTER 2024-02-22 02:42 | Inpatient (IN) | payer OTHER, MEDICARE ==
[2024-02-22 03:37] LABS: BASO % 0.3 % (0-2.0); EOS % 0.1 % (0-4.5); HEMATOCRIT 34.3 % (35.4-49); LYMPH % 4.7 % (8-40); MCH 31.4 pg (25.7-33.7); MCHC 34.9 g/dl (32.0-35.9); MEAN CELL VOLUME 89.8 fl (80-96); MEAN PLT VOLUME 7.5 fl (7.5-11.1); MONO % 6.5 % (3.8-10.2); NEUT % 88.4 % (42.8-82.8); PLATELET COUNT 139 10^3/uL (134-434); RBC 3.82 M/mm3 (4.00-5.60); RDW 14.7 % (11.9-15.9); WHITE BLOOD COUNT 8.2 K/mm3 (4.0-10.0)
[2024-02-22 03:56] LABS: POTASSIUM 3.1 mmol/L (3.5-5.1)
[2024-02-22 03:58] LABS: BLOOD UREA NITROGEN 22.5 mg/dL (7-18)
[2024-02-22 03:59] LABS: ALBUMIN 3.7 g/dl (3.4-5.0)
[2024-02-22 04:03] LABS: BILIRUBIN,TOTAL 1.3 mg/dL (0.2-1); TOT PROT 6.6 g/dl (6.4-8.2)
[2024-02-22 04:29] LABS: LACTIC ACID 2.2 mmol/L (0.4-2.0)
[2024-02-22] MEDS ORDERED: POTASSIUM CHLORIDE ORAL LIQUID 20 MEQ/15 ML ONE (04:48)
[2024-02-22] MEDS: POTASSIUM CHLORIDE ORAL LIQUID 20 MEQ/15 ML PO ONE ×2 (05:02→09:17)
[2024-02-22] MEDS: SODIUM CHLORIDE 0.9% 500 ML INFUS.BAG IV ONE (05:02)
[2024-02-22 07:19] LABS: LACTIC ACID 2.4 mmol/L (0.4-2.0)
[2024-02-22 07:39] LABS: MAGNESIUM 1.6 mg/dL (1.8-2.4)
[2024-02-22] MEDS ORDERED: SODIUM CHLORIDE 1,000 ML IV STA (08:03)
[2024-02-22] MEDS ORDERED: DULoxetine HCL 60 MG CAPSULE.DR PO ONE (09:10)
[2024-02-22] MEDS: KCL 10 MEQ IVPB 10 MEQ/100 ML INFUS.BAG IVPB SCH ×2 (09:17→23:12)
[2024-02-22 10:13] VITALS: BMI 34.6
[2024-02-22] MEDS: TOLTERODINE TARTRATE LA 4 MG CAP.SR.24H (FP) PO ONE (10:34)
[2024-02-22] MEDS: DULoxetine HCL 30 MG CAPSULE.DR PO ONE (10:34)
[2024-02-22] MEDS: LOSARTAN POTASSIUM 50 MG TABLET PO SCH (10:35)
[2024-02-22] MEDS: amLODIPine BESYLATE 5 MG TABLET (FP) PO ONE (10:35)
[2024-02-22] MEDS: GABAPENTIN 300 MG CAPSULE PO ONE (10:35)
[2024-02-22] MEDS: PANTOPRAZOLE 40 MG TABLET PO ONE (10:35)
[2024-02-22] MEDS: ENOXAPARIN NA (PORCINE) 40 MG/0.4 ML DISP.SYRIN SQ SCH (10:36)
[2024-02-22] MEDS: LACTATED RINGERS SOLUTION 1,000 ML/1,000 ML INFUS.BAG IV SCH (11:16)
[2024-02-22] MEDS: MAGNESIUM 2GM/50ML STERILE WATER IVPB IVPB ONE (14:28)
[2024-02-22] MEDS: PRAMIPEXOLE DIHYDROCHLORIDE 0.25 MG TABLET PO SCH (21:07)
[2024-02-22] MEDS: GABAPENTIN 300 MG CAPSULE PO SCH (21:07)
[2024-02-22] MEDS: metoPROLOL SUCCINATE 25 MG TAB.SR.24H (FP) PO SCH (21:07)
[2024-02-22] MEDS: ATORVASTATIN CA 10 MG TABLET (FP) PO SCH (21:07)
[2024-02-22] MEDS: TAMSULOSIN HCL 0.4 MG CAP PO SCH (21:07)
[2024-02-22 21:57] LABS: CALCIUM 8.2 mg/dL (8.5-10.1)
[2024-02-22 21:58] LABS: MAGNESIUM 1.9 mg/dL (1.8-2.4)
[2024-02-22 22:01] LABS: CREATININE 0.8 mg/dL (0.55-1.3)
[2024-02-23 07:53] LABS: BASO % 0.5 % (0-2.0); EOS % 1.4 % (0-4.5); HEMATOCRIT 38.1 % (35.4-49); HEMOGLOBIN 12.9 GM/dL (11.7-16.9); LYMPH % 11.1 % (8-40); MCH 31.3 pg (25.7-33.7); MEAN CELL VOLUME 91.9 fl (80-96); MEAN PLT VOLUME 7.8 fl (7.5-11.1); MONO % 6.9 % (3.8-10.2); NEUT % 80.1 % (42.8-82.8); PLATELET COUNT 134 10^3/uL (134-434); RBC 4.14 M/mm3 (4.00-5.60); RDW 14.7 % (11.9-15.9); WHITE BLOOD COUNT 6.5 K/mm3 (4.0-10.0)
[2024-02-23 08:09] LABS: CHLORIDE 92 mmol/L (98-107); POTASSIUM 3.4 mmol/L (3.5-5.1); SODIUM 133 mmol/L (136-145)
[2024-02-23 08:15] LABS: CALCIUM 9.1 mg/dL (8.5-10.1)
[2024-02-23 08:16] LABS: ALBUMIN 3.8 g/dl (3.4-5.0); ANION GAP 8 mmol/L (4-13); BLOOD UREA NITROGEN 8.8 mg/dL (7-18); CO2 33 mmol/L (21-32); GLUCOSE,RANDOM 140 mg/dL (74-106); MAGNESIUM 1.8 mg/dL (1.8-2.4)
[2024-02-23 08:19] LABS: BILIRUBIN,TOTAL 1.5 mg/dL (0.2-1); CREATININE 0.7 mg/dL (0.55-1.3); PHOSPHOROUS 2.1 mg/dL (2.5-4.9); SGOT/AST 238 U/L (15-37); SGPT/ALT 59 U/L (13-61)
[2024-02-23 08:21] LABS: ALK PHOS 51 U/L (45-117)
[2024-02-23 09:36] LABS: EPI CELLS 2 /uL (0-25.1); HYALINE CASTS 0 /uL (0-3.1); PH,URINE 7.5 (5.0-8.0); URINE APPEARANCE CLEAR; URINE BACTERIA 0 /uL (0-1359); URINE BILIRUBIN NEGATIVE (NEGATIVE); URINE COLOR YELLOW; URINE GLUCOSE (UA) NEGATIVE (NEGATIVE); URINE KETONE NEGATIVE (NEGATIVE); URINE LEUK ESTERASE NEGATIVE (NEGATIVE); URINE NITRITE NEGATIVE (NEGATIVE); URINE PROTEIN NEGATIVE (NEGATIVE); URINE RBC 14 /uL (0-23.9); URINE UROBILINOGEN 0.2 mg/dL (0.2-1.0); URINE WBC 1 /uL (0-25.8)
[2024-02-23] MEDS: PANTOPRAZOLE 40 MG TABLET PO SCH (09:54)
[2024-02-23] MEDS: GABAPENTIN 300 MG CAPSULE PO SCH (09:54)
[2024-02-23] MEDS: TOLTERODINE TARTRATE LA 4 MG CAP.SR.24H (FP) PO SCH (09:54)
[2024-02-23] MEDS: DULoxetine HCL 30 MG CAPSULE.DR PO SCH (09:54)
[2024-02-23] MEDS: amLODIPine BESYLATE 5 MG TABLET (FP) PO SCH (09:54)
[2024-02-23] MEDS ORDERED: LORazepam 1 MG TABLET PO PRN (11:27)
[2024-02-23] MEDS: SODIUM CHLORIDE 0.9%/KCL 20 MEQ/1,000 ML INFUS.BAG IV SCH (11:47)
[2024-02-23] MEDS: THIAMINE 100 MG TABLET PO SCH (11:48)
[2024-02-23] MEDS: MULTIVITAMINS (DAILY MVI) TABLET (FP) PO SCH (11:48)
[2024-02-23] MEDS: FOLIC ACID 1 MG TABLET (FP) PO SCH (11:48)
[2024-02-23] MEDS: LORazepam 1 MG TABLET PO SCH (11:48)
[2024-02-23 12:59] LABS: LACTIC ACID 2.6 mmol/L (0.4-2.0)
[2024-02-23] MEDS: NAPH,MB-DB/K PH,MBDB POWDER PACKET PO ONE (13:45)
[2024-02-23] MEDS: LORazepam 2 MG/ML SDV VIAL IVPUSH PRN (14:27)
[2024-02-23] MEDS: CEPHALEXIN MONOHYDRATE 500 MG CAPSULE (UD) PO SCH (19:28)
[2024-02-24 09:40] LABS: BASO % 0.9 % (0-2.0); EOS % 7.1 % (0-4.5); HEMATOCRIT 33.4 % (35.4-49); HEMOGLOBIN 11.2 GM/dL (11.7-16.9); LYMPH % 21.5 % (8-40); MCH 30.8 pg (25.7-33.7); MCHC 33.5 g/dl (32.0-35.9); MEAN PLT VOLUME 7.3 fl (7.5-11.1); MONO % 10.5 % (3.8-10.2); PLATELET COUNT 120 10^3/uL (134-434); RBC 3.63 M/mm3 (4.00-5.60); RDW 14.5 % (11.9-15.9); WHITE BLOOD COUNT 5.4 K/mm3 (4.0-10.0)
[2024-02-24] MEDS ORDERED: LORazepam 1 MG TABLET PO PRN (09:46)
[2024-02-24 09:58] LABS: BLOOD UREA NITROGEN 10.6 mg/dL (7-18); CALCIUM 8.4 mg/dL (8.5-10.1)
[2024-02-24 10:02] LABS: CREATININE 0.6 mg/dL (0.55-1.3)
[2024-02-24] MEDS: KCL 10 MEQ IVPB 10 MEQ/100 ML INFUS.BAG IVPB SCH (12:42)
[2024-02-24] MEDS: POTASSIUM CHLORIDE TABS 10 MEQ TABLET.ER (FP) PO ONE (12:42)
[2024-02-24] MEDS: SODIUM CHLORIDE 1,000 ML IV SCH (14:41)
[2024-02-25] MEDS: LORazepam 1 MG TABLET PO SCH (05:58)
[2024-02-25 08:55] LABS: POTASSIUM 3.6 mmol/L (3.5-5.1)
[2024-02-25 08:56] LABS: BLOOD UREA NITROGEN 12.3 mg/dL (7-18); CALCIUM 8.4 mg/dL (8.5-10.1)
[2024-02-25 09:00] LABS: CREATININE 0.5 mg/dL (0.55-1.3)
[2024-02-26] MEDS ORDERED: LORazepam 0.5 MG TABLET PO PRN
[2024-02-26] MEDS: LORazepam 0.5 MG TABLET PO SCH (06:11)
[2024-02-26 08:48] LABS: BASO % 0.8 % (0-2.0); HEMOGLOBIN 11.3 GM/dL (11.7-16.9); LYMPH % 21.3 % (8-40); MCH 31.1 pg (25.7-33.7); MCHC 34.1 g/dl (32.0-35.9); MEAN CELL VOLUME 91.2 fl (80-96); MEAN PLT VOLUME 7.2 fl (7.5-11.1); MONO % 12.4 % (3.8-10.2); NEUT % 57.5 % (42.8-82.8); PLATELET COUNT 127 10^3/uL (134-434); RBC 3.62 M/mm3 (4.00-5.60); RDW 14.7 % (11.9-15.9); WHITE BLOOD COUNT 3.9 K/mm3 (4.0-10.0)
[2024-02-26 09:06] LABS: POTASSIUM 3.4 mmol/L (3.5-5.1)
[2024-02-26 09:14] LABS: ALBUMIN 3.1 g/dl (3.4-5.0); BLOOD UREA NITROGEN 8.4 mg/dL (7-18); CALCIUM 8.5 mg/dL (8.5-10.1); MAGNESIUM 1.5 mg/dL (1.8-2.4)
[2024-02-26 09:17] LABS: CREATININE 0.5 mg/dL (0.55-1.3)
[2024-02-26 09:18] LABS: BILIRUBIN,TOTAL 0.8 mg/dL (0.2-1)
[2024-02-26 09:19] LABS: TOT PROT 5.6 g/dl (6.4-8.2)
[2024-02-26] MEDS: MAGNESIUM OXIDE 400 MG TABLET (FP) PO ONE (12:03)
[2024-02-26] MEDS: POTASSIUM CHLORIDE ORAL LIQUID 20 MEQ/15 ML PO ONE (12:04)
[2024-02-27] MEDS: LORazepam 0.5 MG TABLET PO ONE (05:06)
[2024-02-27 08:33] LABS: BASO % 0.7 % (0-2.0); EOS % 5.5 % (0-4.5); HEMATOCRIT 35.1 % (35.4-49); HEMOGLOBIN 11.6 GM/dL (11.7-16.9); LYMPH % 19.8 % (8-40); MCH 30.9 pg (25.7-33.7); MCHC 33.1 g/dl (32.0-35.9); MEAN CELL VOLUME 93.5 fl (80-96); MEAN PLT VOLUME 7.5 fl (7.5-11.1); MONO % 12.1 % (3.8-10.2); NEUT % 61.9 % (42.8-82.8); PLATELET COUNT 156 10^3/uL (134-434); RBC 3.76 M/mm3 (4.00-5.60); RDW 14.9 % (11.9-15.9)
[2024-02-27 08:43] LABS: POTASSIUM 4.2 mmol/L (3.5-5.1)
[2024-02-27 08:45] LABS: CALCIUM 8.9 mg/dL (8.5-10.1)
[2024-02-27 08:46] LABS: ALBUMIN 3.2 g/dl (3.4-5.0); BLOOD UREA NITROGEN 9.1 mg/dL (7-18); MAGNESIUM 1.5 mg/dL (1.8-2.4)
[2024-02-27 08:49] LABS: CREATININE 0.5 mg/dL (0.55-1.3)
[2024-02-27 08:51] LABS: BILIRUBIN,TOTAL 0.7 mg/dL (0.2-1)
[2024-02-27 08:52] LABS: TOT PROT 5.9 g/dl (6.4-8.2)
[2024-02-27] MEDS: BACITRACIN ZINC 15 GM TUBE TOPICAL OINTMENT TP SCH (09:57)
[2024-02-28 08:30] LABS: BASO % 0.7 % (0-2.0); EOS % 3.8 % (0-4.5); HEMATOCRIT 33.1 % (35.4-49); HEMOGLOBIN 11.2 GM/dL (11.7-16.9); LYMPH % 16.8 % (8-40); MCHC 33.9 g/dl (32.0-35.9); MEAN CELL VOLUME 91.5 fl (80-96); MEAN PLT VOLUME 7.3 fl (7.5-11.1); MONO % 13.6 % (3.8-10.2); NEUT % 65.1 % (42.8-82.8); PLATELET COUNT 184 10^3/uL (134-434); RBC 3.62 M/mm3 (4.00-5.60); RDW 14.9 % (11.9-15.9); WHITE BLOOD COUNT 5.5 K/mm3 (4.0-10.0)
[2024-02-28 08:38] LABS: ALBUMIN 3.2 g/dl (3.4-5.0); BLOOD UREA NITROGEN 9.7 mg/dL (7-18); CALCIUM 9.2 mg/dL (8.5-10.1); MAGNESIUM 1.7 mg/dL (1.8-2.4)
[2024-02-28 08:42] LABS: CREATININE 0.6 mg/dL (0.55-1.3)
[2024-02-28 08:43] LABS: BILIRUBIN,TOTAL 0.6 mg/dL (0.2-1); TOT PROT 5.9 g/dl (6.4-8.2)
[2024-02-28] MEDS: MAGNESIUM SULFATE IN WATER 2 GM/50 ML IVPB IVPB ONE (09:10)
[2024-02-28] MEDS: DICLOFENAC SODIUM 75 MG TABLET.DR PO PRN (22:03)
[2024-02-29 07:01] LABS: BASO % 0.9 % (0-2.0); EOS % 4.2 % (0-4.5); HEMATOCRIT 34.6 % (35.4-49); HEMOGLOBIN 11.6 GM/dL (11.7-16.9); LYMPH % 21.1 % (8-40); MCH 31.3 pg (25.7-33.7); MCHC 33.6 g/dl (32.0-35.9); MEAN CELL VOLUME 93.2 fl (80-96); MEAN PLT VOLUME 7.4 fl (7.5-11.1); MONO % 12.5 % (3.8-10.2); NEUT % 61.3 % (42.8-82.8); PLATELET COUNT 211 10^3/uL (134-434); RBC 3.71 M/mm3 (4.00-5.60); WHITE BLOOD COUNT 4.7 K/mm3 (4.0-10.0)
[2024-02-29 07:18] LABS: POTASSIUM 4.5 mmol/L (3.5-5.1)
[2024-02-29 07:21] LABS: CALCIUM 8.7 mg/dL (8.5-10.1)
[2024-02-29 07:22] LABS: ALBUMIN 3.3 g/dl (3.4-5.0); BLOOD UREA NITROGEN 11.3 mg/dL (7-18); MAGNESIUM 1.8 mg/dL (1.8-2.4)
[2024-02-29 07:25] LABS: CREATININE 0.7 mg/dL (0.55-1.3)
[2024-02-29 07:27] LABS: BILIRUBIN,TOTAL 0.6 mg/dL (0.2-1); TOT PROT 6.2 g/dl (6.4-8.2)
[2024-03-01] MEDS: ENOXAPARIN NA (PORCINE) 40 MG/0.4 ML DISP.SYRIN SQ SCH (14:01)
[2024-03-01] MEDS: POLYETHYLENE GLYCOL (HEALTHYLAX) 3350 17 GM PACKET PO ONE (15:34)
[2024-03-03 07:06] VITALS: BP 129/74; PULSE 72; RESP 18; TEMP 98.2
== END 2024-03-03 11:35 | DRG 57 ==
LOC: JER 02:42 → JERBED 05:26 → J7W 09:14 → OBSVTOIN 02-23 10:01
PROVIDERS: ADMIT Internal Medicine; ATTEND Internal Medicine
DX: G20.A1 Parkinson's disease without dyskinesia, without mention of fluctuations (principal); E87.1 Hypo-osmolality and hyponatremia; M62.82 Rhabdomyolysis; E87.20 Acidosis, unspecified; F10.230 Alcohol dependence with withdrawal, uncomplicated; N40.0 Benign prostatic hyperplasia without lower urinary tract symptoms; I25.10 Atherosclerotic heart disease of native coronary artery without angina pectoris; I10 Essential (primary) hypertension; E78.5 Hyperlipidemia, unspecified; E87.6 Hypokalemia; G47.33 Obstructive sleep apnea (adult) (pediatric); G62.9 Polyneuropathy, unspecified; F10.220 Alcohol dependence with intoxication, uncomplicated; I48.0 Paroxysmal atrial fibrillation; E86.0 Dehydration; M48.061 Spinal stenosis, lumbar region without neurogenic claudication; M54.16 Radiculopathy, lumbar region; R29.6 Repeated falls; D32.9 Benign neoplasm of meninges, unspecified
CPT/HCPCS: 36415; 70450-TC; 71046-TC-FY; 72141-TC; 72148-TC; 73030-TC-LT-FY; 73030-TC-RT-FY; 80048; 80053; 80307; 81003; 82272; 82550; 82553; 82607; 82962; 83605; 83735; 84100; 84443; 84484; 85025; 87086; 87635; 93005; 93010; 97116-GP; 99285-25; G0378